=== PATIENT | male | born 1935 | race Caucasian/White ===

== ENCOUNTER → 2018-04-26 09:01 | Outpatient (CLI) | payer OTHER, SELFPAY ==
[2018-04-26 11:19] LABS: Phenytoin / Dilantin 12.4 ug/mL (10-20)
== END ==
PROVIDERS: PCP Family Medicine; Visit Provider Family Medicine
DX: R56.9 Unspecified convulsions (principal)
CPT/HCPCS: 36415; 80185

== ENCOUNTER → 2018-08-03 11:24 | Outpatient (CLI) | payer OTHER, SELFPAY ==
[2018-08-03 12:06] LABS: Add Manual Diff / Slide Review NO; Basophils Percent Auto 0.9 % (0-2); Eosinophils Percent Auto 6.4 % (2-4); Hematocrit 36.5 % (41-53); Lymphocytes Percent Auto 18.4 % (25-40); Mean Corpuscular HGB Conc 32.8 % (30-36); Mean Corpuscular Hemoglobin 30.6 PG (26-34); Mean Corpuscular Volume 93.3 fL (80-100); Monocytes Percent Auto 16.8 % (3-14); Neutrophils Absolute Auto 2300 /uL (1500-7000); Neutrophils Percent Auto 57.5 % (50-75); Platelet Count 224 X10^3/uL (150-400); Red Blood Cell Count 3.92 X10^6/uL (4.5-5.9); Red Cell Distribution Width 13.3 % (11.6-14.8); White Blood Cell Count 3.9 X10^3/uL (4.5-11.0)
[2018-08-03 12:24] LABS: Alanine Aminotransferase 19 IU/L (21-72); Albumin Globulin Ratio 1.1 (1.0-2.8); Alkaline Phosphatase 219 U/L (38-126); Aspartate Aminotransferase 24 IU/L (17-59); BUN Creatinine Ratio 19.2 (6-22); Bilirubin Total 0.2 mg/dL (0.2-1.3); Blood Urea Nitrogen 23 mg/dL (9-20); Calcium 8.6 mg/dL (8.4-10.2); Carbon Dioxide 26 mmol/L (22-32); Chloride 104 mmol/L (98-107); Cholesterol 140 mg/dL (140-199); Estimated Glomerular Filt Rate 58.3 mL/min (>60); Globulin 3.8 g/dL (1.7-4.1); Glucose 119 mg/dL (80-110); HDL Cholesterol 42 mg/dL (40-60); HEMOLYSIS < 15 (0-50); LDL Cholesterol Calculated 77 mg/dL (<100); Potassium 4.3 mmol/L (3.4-5.1); Sodium 140 mmol/L (137-145); Total Protein 7.8 g/dL (6.3-8.2); Triglycerides 106 mg/dL (35-150)
[2018-08-03 12:36] LABS: Vitamin D 25 Hydroxy (D3) 20.3 ng/mL (30.0-100.0)
[2018-08-03 12:51] LABS: Thyroid Stimulating Hormone 3.98 uIU/mL (0.47-4.68)
[2018-08-03 12:52] LABS: Prostate Specific Antigen Scrn 1.51 ng/mL (0.1-4.0)
== END ==
PROVIDERS: PCP Family Medicine; Visit Provider Family Medicine
DX: R60.9 Edema, unspecified (principal); E03.9 Hypothyroidism, unspecified; E87.5 Hyperkalemia; I25.10 Atherosclerotic heart disease of native coronary artery without angina pectoris; M85.80 Other specified disorders of bone density and structure, unspecified site; N28.9 Disorder of kidney and ureter, unspecified; R56.9 Unspecified convulsions; Z12.5 Encounter for screening for malignant neoplasm of prostate
CPT/HCPCS: 36415; 80053; 80061; 80185; 82306; 83036; 84443; 85025; G0103

== ENCOUNTER → 2018-11-14 10:10 | Outpatient (CLI) | payer OTHER, SELFPAY ==
[2018-11-14 12:41] LABS: Vitamin D 25 Hydroxy (D3) 56.6 ng/mL (30.0-100.0)
== END ==
PROVIDERS: PCP Family Medicine; Visit Provider Family Medicine
DX: E55.9 Vitamin D deficiency, unspecified (principal)
CPT/HCPCS: 36415; 82306

== ENCOUNTER → 2018-11-16 14:00 | Outpatient (CLI) | payer OTHER, SELFPAY ==
--- NOTE | 2018-11-16 14:02 | DI.RAD.S_ITS ---
PROCEDURE: XR TOE LT MIN 2V INDICATIONS: Left toe pain TECHNIQUE: 2 views of the 4th toe(s) acquired. COMPARISON: [facility], CT, HEAD WITHOUT CONTRAST, 11/10/2014, 2:18. FINDINGS: Bones: No fractures or dislocations. There is a somewhat mottled appearance of the marrow involving the 5th metatarsal and at the adjacent proximal phalanx of the 5th toe. Additional areas of similar mottled appearance of the bone may be present. No discrete bony lesion is evident. Soft tissues: No suspicious soft tissue densities. IMPRESSION: 1. No displaced fractures of the left 4th toe. 2. Mottled/heterogeneous marrow appearance of the 5th metatarsal and the adjacent phalanges of the 5th toe. This appearance may represent focal osteopenia, an underlying bone lesion is unable to be excluded. MRI would be helpful for further evaluation with contrast. Dictated by: Rashid Lord M.D. on 11/16/2018 at 13:40 Approved by: Rashid Lord M.D. on 11/16/2018 at 13:42
== END ==
PROVIDERS: PCP Family Medicine; Visit Provider Registered Nurse
DX: M79.675 Pain in left toe(s) (principal)
CPT/HCPCS: 73660

== ENCOUNTER → 2018-12-20 11:20 | Outpatient (CLI) | payer OTHER, SELFPAY ==
[2018-12-20 12:04] LABS: Add Manual Diff / Slide Review NO; Basophils Absolute Auto 0 /uL (0-100); Basophils Percent Auto 0.7 % (0-2); Eosinophils Absolute Auto 200 /uL (0-450); Hematocrit 36.6 % (41-53); Hemoglobin 12.3 g/dL (13.5-17.5); Lymphocytes Absolute Auto 900 /uL (1100-4500); Lymphocytes Percent Auto 17.4 % (25-40); Mean Corpuscular HGB Conc 33.7 % (30-36); Mean Corpuscular Hemoglobin 31.1 PG (26-34); Mean Corpuscular Volume 92.5 fL (80-100); Monocytes Absolute Auto 700 /uL (0-900); Neutrophils Absolute Auto 3300 /uL (1500-7000); Neutrophils Percent Auto 64.9 % (50-75); Platelet Count 242 X10^3/uL (150-400); Red Blood Cell Count 3.96 X10^6/uL (4.5-5.9); Red Cell Distribution Width 14.3 % (11.6-14.8); White Blood Cell Count 5.1 X10^3/uL (4.5-11.0)
[2018-12-20 12:16] LABS: Alanine Aminotransferase 11 IU/L (21-72); Albumin 4.1 g/dL (3.5-5.0); Albumin Globulin Ratio 1.1 (1.0-2.8); Alkaline Phosphatase 232 U/L (38-126); Aspartate Aminotransferase 25 IU/L (17-59); BUN Creatinine Ratio 19.2 (6-22); Bilirubin Total 0.4 mg/dL (0.2-1.3); Blood Urea Nitrogen 23 mg/dL (9-20); Calcium 9.2 mg/dL (8.4-10.2); Carbon Dioxide 31 mmol/L (22-32); Chloride 100 mmol/L (98-107); Estimated Glomerular Filt Rate 58.1 mL/min (>60); Globulin 3.8 g/dL (1.7-4.1); Glucose 145 mg/dL (80-110); HEMOLYSIS < 15 (0-50); Phenytoin / Dilantin 23.7 ug/mL (10-20); Potassium 4.9 mmol/L (3.4-5.1); Sodium 139 mmol/L (137-145); Total Protein 7.9 g/dL (6.3-8.2)
[2018-12-20 12:25] LABS: B Type Natriuretic Peptide 179 (<100)
[2018-12-20 12:40] LABS: Thyroid Stimulating Hormone 4.32 uIU/mL (0.47-4.68)
== END ==
PROVIDERS: PCP Family Medicine; Visit Provider Family Medicine
DX: R60.9 Edema, unspecified (principal)
CPT/HCPCS: 36415; 80053; 80185; 83735; 83880; 84443; 85025

== ENCOUNTER → 2019-01-03 14:45 | Outpatient (CLI) | payer OTHER, SELFPAY ==
--- NOTE | 2019-01-03 14:46 | DI.ECHO.S_ITS ---
[facility]---------+ [facility] +---------+ : : [address] : : : [place], [place] : : : : [id number] : : : : Phone: [phone]+ Echocardiogram Report + + :Name: DARREN BERNAL Study Date: 01/03/2019 Height: 69 in : :[facility] Exam Location: [facility] Weight: 178 lb : : Gender: Male BSA: 2.0 m2 : :: 1935 Age: 83 yrs BP: 104/52 mmHg: :Reason For Study: EDEMA : : Performed By: Connor Chang : :Referring: JHON WHITEHEAD : + + Interpretation Summary Left ventricular systolic function is mild to moderately reduced with the ejection fraction visually estimated to be 45-50% with borderline global hypokinesis and akinesis of the mid to distal septum, the distal anterior wall, and the apex that appears unchanged from previous. There has been no significant change since the previous study. Diastolic parameters suggest a pseudonormalization pattern, consistent with probable elevated filling pressures, likely higher compared to the previous study. The right ventricle is mildly dilated and right ventricular systolic function is borderline reduced but appears unchanged compared to the previous study. The right ventricular systolic pressure is estimated to be at least 33 mmHg based on an estimated right atrial pressure of 3 mm Hg, and may be slightly lower compared to the previous study. Both atria are normal in size and are grossly unchanged compared to the previous study. 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 There is no significant valvular heart disease. 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 Procedure: A two-dimensional transthoracic echocardiogram with color flow and Doppler was performed. The study quality was technically adequate. Comparison is made with the echocardiogram of 04/18/17. The patient was in normal sinus rhythm during the exam. Left Ventricle: The left ventricle is normal in size. There is normal left ventricular wall thickness. Left ventricular systolic function is mild to moderately reduced. The ejection fraction is estimated to be 45-50%. There is borderline global hypokinesis of the left ventricle. There is akinesis of the mid to distal septum, the distal anterior wall, and the apex that appears unchanged from previous. There has been no significant change since the previous study. Diastolic parameters suggest a pseudonormalization pattern, consistent with probable elevated filling pressures. This is likely higher compared to the previous study. Right Ventricle: The right ventricle is mildly dilated. Right ventricular systolic function is borderline reduced. This is unchanged compared to the previous study. Atria: Both atria are normal in size. This is unchanged compared to the previous study. The interatrial septum is intact with no evidence for an atrial septal defect. Mitral Valve: The mitral valve leaflets appear mildly thickened, but open well. 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 There is trace mitral regurgitation. This is unchanged compared to the previous study. Aortic Valve: The aortic valve is trileaflet. The aortic valve opens well. There is trace aortic regurgitation. Tricuspid Valve: The tricuspid valve is normal in structure and function. There is trace tricuspid regurgitation. The right ventricular systolic pressure is estimated to be at least 33 mmHg based on an estimated right atrial pressure of 3 mm Hg. This is likely slightly lower compared to the previous study. Pulmonic Valve: The pulmonic valve is normal in structure and function. There is trace pulmonic regurgitation. There is no significant valvular heart disease. Great Vessels: The aortic root is normal size. The ascending aorta is mildly enlarged. This is unchanged compared to the previous study. The pulmonary artery is normal size. The IVC is of normal diameter and collapses greater than 50% with a sniff. This suggests a low right atrial pressure of 3 mm Hg. Pericardium/ Pleura There is no pericardial effusion. There is no pleural effusion. MMode/2D Measurements & Calculations LVIDd: 5.0 cm LVOT diam: 2.3 cm LVIDs: 3.5 cm Ao root diam: 3.0 cm FS: 30.1 % Aortic Jxn: 2.4 cm EPSS: 0.88 cm asc Aorta Diam: 3.5 cm IVSd: 0.82 cm Ao Arch Diam (Prox Trans): 2.5 cm LVPWd: 0.94 cm LV montiel. diameter/BSA (cm/m^2): 2.6 LV sys. diameter/BSA (cm/m^2): 1.8 LA dimension: 3.6 cm RA long axis: 4.7 cm LA A2 area: 20.3 cm2 RA area: 16.0 cm2 LA A4 area: 19.8 cm2 RA vol: 46.1 ml LA length (vol): 5.0 cm RA : 23.5 ml/m2 LA vol: 67.9 ml IVC diam: 2.1 cm LA vol index: 34.5 ml/m2 RVD1 (basal): 4.7 cm RVD2 (mid): 4.2 cm Doppler Measurements & Calculations Ao V2 max: 125.7 cm/sec LVOT Max Neno: 72.5 cm/sec Ao V2 mean: 93.8 cm/sec LV V1 max P.1 mmHg Ao max P.3 mmHg LV V1 VTI: 17.4 cm Ao mean P.8 mmHg BHARATHI(I,D): 2.3 cm2 Ao V2 VTI: 30.2 cm BHARATHI(V,D): 2.3 cm2 sev ratio: 0.58 BHARATHI indexed to BSA (cm^2/m^2): 1.2 MV E max neno: 129.7 cm/sec TR max neno: 274.0 cm/sec MV A max neno: 105.9 cm/sec TR max P.0 mmHg MV E/A: 1.2 PA V2 max: 72.5 cm/sec Med Peak E' Neno: 2.7 cm/sec PA V2 mean: 53.9 cm/sec E/E' med: 48.3 PA mean P.3 mmHg Lat Peak E' Neno: 4.0 cm/sec PA pr(Accel): 51.6 mmHg E/E' lat: 32.2 PA Accel Time: 0.06 sec E/e' average: 40.3 MV dec time: 0.32 sec MVA(VTI): 1.8 cm2 MV V2 mean: 70.0 cm/sec SV(LVOT): 70.0 ml MV mean P.3 mmHg MV V2 VTI: 38.8 cm Reading Physician:LEXA
== END ==
PROVIDERS: PCP Family Medicine; Visit Provider Family Medicine
DX: R60.9 Edema, unspecified (principal); I77.89 Other specified disorders of arteries and arterioles
CPT/HCPCS: 93306

== ENCOUNTER → 2019-02-20 14:32 | Outpatient (CLI) | payer OTHER, SELFPAY ==
[2019-02-20 15:14] LABS: B Type Natriuretic Peptide 152 (<100)
[2019-02-20 15:34] LABS: BUN Creatinine Ratio 21.8 (6-22); Blood Urea Nitrogen 24 mg/dL (9-20); Calcium 8.7 mg/dL (8.4-10.2); Carbon Dioxide 25 mmol/L (22-32); Chloride 105 mmol/L (98-107); Estimated Glomerular Filt Rate > 60.0 mL/min (>60); Glucose 116 mg/dL (80-110); HEMOLYSIS < 15 (0-50); Phenytoin / Dilantin 11.5 ug/mL (10-20); Sodium 138 mmol/L (137-145)
[2019-02-20 16:20] LABS: Vitamin D 25 Hydroxy (D3) 42.2 ng/mL (30.0-100.0)
== END ==
PROVIDERS: PCP Family Medicine; Visit Provider Family Medicine
DX: R60.9 Edema, unspecified (principal); R41.3 Other amnesia
CPT/HCPCS: 36415; 80048; 80185; 82306; 83880

== ENCOUNTER → 2019-07-12 09:24 | Outpatient (CLI) | payer OTHER, SELFPAY ==
[2019-07-12 11:30] LABS: Alanine Aminotransferase 13 IU/L (<50); Albumin 3.5 g/dL (3.5-5.0); Albumin Globulin Ratio 1.1 (1.0-2.8); Alkaline Phosphatase 177 U/L (38-126); Aspartate Aminotransferase 23 IU/L (17-59); BUN Creatinine Ratio 17.9 (6-22); Bilirubin Total 0.3 mg/dL (0.2-1.3); Blood Urea Nitrogen 25 mg/dL (9-20); Calcium 8.8 mg/dL (8.4-10.2); Carbon Dioxide 24 mmol/L (22-32); Chloride 103 mmol/L (98-107); Cholesterol 133 mg/dL (140-199); Estimated Glomerular Filt Rate 48.6 mL/min (>60); Globulin 3.2 g/dL (1.7-4.1); Glucose 103 mg/dL (80-110); HDL Cholesterol 41 mg/dL (40-60); HEMOLYSIS < 15 (0-50); LDL Cholesterol Calculated 72 mg/dL (<100); Magnesium 2.2 mg/dL (1.6-2.3); Potassium 5.3 mmol/L (3.4-5.1); Sodium 138 mmol/L (137-145); Total Protein 6.7 g/dL (6.3-8.2); Triglycerides 99 mg/dL (35-150)
== END ==
PROVIDERS: PCP Family Medicine; Visit Provider Internal Medicine Cardiovascular Disease
DX: E78.5 Hyperlipidemia, unspecified (principal); R60.9 Edema, unspecified
CPT/HCPCS: 36415; 80053; 80061; 83735

== ENCOUNTER → 2019-08-02 08:17 | Outpatient (CLI) | payer MEDICARE, SELFPAY ==
--- NOTE | 2019-08-02 09:27 | PM.TREADMILL ---
Cardiac Stress Test Report Referral & Results Date Patient Seen: 08/02/19 Time Patient Seen: 09:10 Requesting provider: Nadege Pastor Indication: DYSPNEA Rest ECG: SINUS RHYTHM Procedure Note: AFTER INJECTION PATIENT HAD FLUSHING. CHEST PRESSURE UNCHANGED FROM BASELINE 09/02. DYSPNEA UNCHANGED FROM BASELINE. RESTING ECG SINUS RHYTHM. AFTER INJECTION HE DEVELOPED APPROX. 1MM ST DEPRESSION IN V5 AND V6. NO AMINOPHYLLINE NEEDED. MIBI TO FOLLOW. Impression: PHARMACOLOGICAL PORTION OF MYOCARDIAL PERFUSION STUDY IMAGES PENDING Please note: Actual ECG tracings can be found in the PACS system.
--- NOTE | 2019-08-13 12:03 | DI.NM.S_ITS ---
DATE OF SERVICE: PROCEDURE: Pharmacological perfusion study. 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 RADIOPHARMACEUTICAL: 27.0 mCi technetium-99m Myoview IV was injected at stress and 26.2 mCi technetium-99m Myoview IV was injected at rest. FINDINGS: CARDIAC STRESS: The patient underwent pharmacological perfusion study under the supervision of attending staff using standard Lexiscan, as per protocol. The patient remained hemodynamically stable. After Lexiscan injection, the patient experienced flushing without any chest pain, which got resolved by itself. 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 During stress, there were some nonspecific ST changes. At stress, patient developed ventricular triplets and multifocal PVCs without any sustained ventricular tachycardia. There is increased subdiaphragmatic activity. GATED STUDY: The stress LV ejection fraction is 55 percent and resting LV ejection fraction is 53 percent with akinetic apex, mid to distal anterior wall. Resting end-diastolic volume 137 mL. No transient ischemic dilatation. TID ratio is 1.08, which is within normal limits. Lung-heart ratio 0.39, which is within normal limits. MYOCARDIAL PERFUSION: Stress supine, resting supine and stress prone images were compared to each other. 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 No obvious reversible ischemia. Maksim Eason - SUNDEEP/ilir/lc doc#: [id number]/job#: [id number] dd: 08/05/2019 17:49:00 dt: 08/06/2019 04:01:00 DICTATING MD/COPIES TO: Nadege Pastor MD COPIES MNE: MARK;
== END ==
PROVIDERS: PCP Family Medicine; Visit Provider Internal Medicine Cardiovascular Disease
DX: I25.5 Ischemic cardiomyopathy (principal); R06.09 Other forms of dyspnea; I50.22 Chronic systolic (congestive) heart failure
CPT/HCPCS: 78452; 93016; 93017; 93018; A9502; J2785

== ENCOUNTER → 2020-01-27 12:53 | Outpatient (CLI) | payer MEDICARE, SELFPAY ==
[2020-01-27 13:46] LABS: Add Manual Diff / Slide Review NO; Basophils Absolute Auto 0 /uL (0-100); Basophils Percent Auto 0.7 % (0-2); Eosinophils Absolute Auto 200 /uL (0-450); Eosinophils Percent Auto 4.6 % (2-4); Hematocrit 36.9 % (41-53); Hemoglobin 11.8 g/dL (13.5-17.5); Lymphocytes Absolute Auto 800 /uL (1100-4500); Lymphocytes Percent Auto 14.5 % (25-40); Mean Corpuscular HGB Conc 31.9 % (30-36); Mean Corpuscular Hemoglobin 29.3 PG (26-34); Mean Corpuscular Volume 91.8 fL (80-100); Monocytes Absolute Auto 700 /uL (0-900); Monocytes Percent Auto 13.3 % (3-14); Neutrophils Absolute Auto 3600 /uL (1500-7000); Neutrophils Percent Auto 66.9 % (50-75); Platelet Count 188 X10^3/uL (150-400); Red Blood Cell Count 4.02 X10^6/uL (4.5-5.9); Red Cell Distribution Width 14.5 % (11.6-14.8); White Blood Cell Count 5.4 X10^3/uL (4.5-11.0)
[2020-01-27 14:16] LABS: Alanine Aminotransferase 8 IU/L (<50); Albumin 3.9 g/dL (3.5-5.0); Albumin Globulin Ratio 1.1 (1.0-2.8); Alkaline Phosphatase 215 U/L (38-126); Aspartate Aminotransferase 24 IU/L (17-59); BUN Creatinine Ratio 20.2 (6-22); Bilirubin Total 0.3 mg/dL (0.2-1.3); Blood Urea Nitrogen 21 mg/dL (9-20); Calcium 8.7 mg/dL (8.4-10.2); Carbon Dioxide 27 mmol/L (22-32); Chloride 102 mmol/L (98-107); Estimated Glomerular Filt Rate > 60.0 mL/min (>60); Globulin 3.6 g/dL (1.7-4.1); Glucose 105 mg/dL (80-110); HEMOLYSIS < 15 (0-50); Magnesium 2.4 mg/dL (1.6-2.3); Phenytoin / Dilantin 8.4 ug/mL (10-20); Potassium 4.9 mmol/L (3.4-5.1); Sodium 134 mmol/L (137-145); Total Protein 7.5 g/dL (6.3-8.2)
== END ==
PROVIDERS: PCP Family Medicine; Referring Provider Family Medicine; Visit Provider Family Medicine
DX: R56.9 Unspecified convulsions (principal)
CPT/HCPCS: 36415; 80053; 80185; 83735; 84443; 85025

== ENCOUNTER → 2020-02-08 09:57 | Outpatient (CLI) | payer MEDICARE, SELFPAY ==
[2020-02-08 12:06] LABS: Phenytoin / Dilantin 12.2 ug/mL (10-20)
== END ==
PROVIDERS: PCP Family Medicine; Referring Provider Family Medicine; Visit Provider Family Medicine
DX: R56.9 Unspecified convulsions (principal)
CPT/HCPCS: 36415; 80185

== ENCOUNTER 2020-02-15 10:32 | Emergency (ER) | payer MEDICARE, SELFPAY ==
[2020-02-15] VITALS (43 sets, daily range): BP systolic 114–154; BP diastolic 58–100; PULSE 40–90; RESP 13–47; TEMP 36.6; O2SAT 85–100; BMI 25.5
[2020-02-15 10:59] LABS: Add Manual Diff / Slide Review NO; Basophils Absolute Auto 0 /uL (0-100); Basophils Percent Auto 0.7 % (0-2); Eosinophils Absolute Auto 100 /uL (0-450); Eosinophils Percent Auto 2.8 % (2-4); Hematocrit 36.4 % (41-53); Lymphocytes Absolute Auto 700 /uL (1100-4500); Lymphocytes Percent Auto 12.7 % (25-40); Mean Corpuscular HGB Conc 32.9 % (30-36); Mean Corpuscular Volume 91.1 fL (80-100); Monocytes Absolute Auto 700 /uL (0-900); Neutrophils Absolute Auto 3700 /uL (1500-7000); Neutrophils Percent Auto 70.8 % (50-75); Platelet Count 209 X10^3/uL (150-400); White Blood Cell Count 5.2 X10^3/uL (4.5-11.0)
[2020-02-15 11:09] LABS: Creatine Kinase 55 U/L (55-170)
[2020-02-15 11:11] LABS: Alanine Aminotransferase 10 IU/L (<50); Albumin 4.1 g/dL (3.5-5.0); Albumin Globulin Ratio 1.1 (1.0-2.8); Alkaline Phosphatase 237 U/L (38-126); Aspartate Aminotransferase 26 IU/L (17-59); BUN Creatinine Ratio 22.6 (6-22); Bilirubin Total 0.5 mg/dL (0.2-1.3); Blood Urea Nitrogen 28 mg/dL (9-20); Carbon Dioxide 28 mmol/L (22-32); Chloride 98 mmol/L (98-107); Estimated Glomerular Filt Rate 55.8 mL/min (>60); Globulin 3.8 g/dL (1.7-4.1); Glucose 133 mg/dL (80-110); HEMOLYSIS 31 (0-50); Potassium 4.6 mmol/L (3.4-5.1); Sodium 133 mmol/L (137-145); Total Protein 7.9 g/dL (6.3-8.2)
[2020-02-15 11:22] LABS: Troponin I 0.015 ng/mL (0.01-0.034)
[2020-02-15 11:37] LABS: Phenytoin / Dilantin 26.7 ug/mL (10-20)
[2020-02-15 11:44] LABS: NT-proBNP (BNP-Adult 18+) 915 pg/mL (<450)
[2020-02-15 11:46] LABS: Prothrombin Time 11.3 SECONDS (10.1-12.7)
--- NOTE | 2020-02-15 11:48 | DI.RAD.S_ITS ---
PROCEDURE: XR CHEST 1V INDICATIONS: dizziness, bradycardia, TECHNIQUE: One view of the chest was acquired. COMPARISON: [facility], , CHEST 1 VIEW, 04/07/2015, 1:42. FINDINGS: Surgical changes and devices: None. Lungs and pleura: There is moderate multifocal patchy airspace opacity within the mid and lower lungs. No pleural effusions or pneumothorax. Mediastinum: Mediastinal contours appear normal. Heart size is normal. Bones and chest wall: No suspicious bony lesions. Overlying soft tissues appear unremarkable. IMPRESSION: Bilateral pneumonia. Dictated by: Dalila Grove M.D. on 02/15/2020 at 11:18 Approved by: Dalila Grove M.D. on 02/15/2020 at 11:18
--- NOTE | 2020-02-15 12:17 | ED_ITS ---
HPI - Dizziness <KEN Schilling - Last Filed: 02/15/20 20:08> General Chief Complaint: Dizziness Stated Complaint: Pulse rate is going up/down Time Seen by Provider: 02/15/20 11:27 Source: patient and family Mode of arrival: Wheelchair Limitations: no limitations History of Present Illness HPI Narrative: This is a 84-year-old male, former smoker, who has chronic condition as CAD with bypass surgery, heart failure, seizures, hypothyroidism presents to ED with his family with chief complain of dizziness for 2 weeks and bradycardia down to 38-42 bpm. 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 Patient reports he worked [employer] all his life and contributed silicosis to this. Patient decided to check his oxygenation with worsening dizziness and activity intolerance and noticed heart rate in 40s. Patient has been checking his heart rate last 2 days. Patient denies chest pain, breathing difficulty with this. Patient is not sure his baseline heart rate. Patient also reports bilateral ankle swelling for last 2-3 years and he is currently taking furosemide and spironolactone. He also states he has been having increasing mini seizures for last couple of weeks. He describe his mini seizures as lasting for 5-6 seconds with eye flickering and loosing breath. He states he has mini seizures 3-4 times to 10-15 times a day. He has an appointment with neurologist at [facility] in March. Related Data Home Medications Medication Instructions Recorded Confirmed aspirin 81 mg PO QDAY #0 03/31/17 02/15/20 multivitamin 1 tab PO DAILY 12/19/18 02/15/20 ferrous sulfate 134 mg PO DAILY 02/15/20 02/15/20 levothyroxine 75 mcg PO QAM 02/15/20 02/15/20 lovastatin 40 mg PO BEDTIME 02/15/20 02/15/20 phenytoin sodium extended 300 mg PO BID 02/15/20 02/15/20 [Dilantin Extended] Previous Rx's Medication Instructions Recorded furosemide 80 mg tablet 160 mg PO DAILY #180 tab 10/28/19 spironolactone 25 mg tablet 50 mg PO BID #360 tab 01/10/20 Allergies Allergy/AdvReac Type Severity Reaction Status Date / Time Beta-Blockers Allergy Severe can't Verified 02/15/20 11:10 (Beta-Adrenergic Bloc breathe [BETA-BLOCKERS (BETA-ADRENERGIC BLOC] doxycycline [DOXYCYCLINE] Allergy Intermediate CHEST PAIN Verified 02/15/20 11:10 codeine [CODEINE] Allergy Mild VERTIGO, Verified 02/15/20 11:10 GI UPSET Review of Systems <KEN Schilling - Last Filed: 02/15/20 20:08> Review of Systems Narrative: General: Denies fever, chills, fatigue, malaise, sweats. HEENT: Denies sinus pain, ear pain, sore throat, difficulty swallowing, dizziness. Respiratory: Denies dyspnea, cough, wheezing, hemoptysis, sputum. Cardiovascular: See HPI Gastrointestinal: Denies nausea, vomiting, abdominal pain, diarrhea, constipation, melena. : Denies dysuria, frequency, incontinence, hematuria, urinary retention. Musculoskeletal: Denies weakness, joint pain or bony pain. Skin: Denies rash, skin lesions, or other. Neurologic: See HPI Psychiatric: No concerning psychosocial issues. 12-point review of systems is negative except for those stated above. Patient History <KEN Schilling - Last Filed: 02/15/20 20:08> Social History Smoking Status: Former smoker Smoking Status: Former smoker alcohol intake frequency: holidays/special occasions only Substance Use Type: does not use Exam <KEN Schilling - Last Filed: 02/15/20 20:08> Narrative Exam Narrative: GEN: Alert, oriented x 3, thin appearing and in no acute distress. Head: Normal cephalic, atraumatic. No scalp or temporal tenderness, palpable mass or rash. EYES: Pupils are equal, round, and reactive to light and accommodation. There is no subconjunctival hemorrhage, exudate and sclera non-icteric. ENT: Hearing grossly intact. Nose without bleeding, purulent discharge or deviation. Mucous membrane moist, no mucosal lesion. Throat without erythema, tonsillar hypertrophy or exudate. Uvula in midline, airway patent. Neck: Trachea in midline. No JVD, non-tender without lymphadenopathy. No masses or thyroid megaly. Supple, non-tender and no meningeal signs. CARDIAC: Normal regular rate and rhythm without murmurs, gallops, or rubs. No chest wall tenderness. +1 bilateral lower leg edema. No cyanosis or pallor. Capillary refill is less than 2 seconds. RESPIRATORY: Lungs are clear to auscultate bilaterally. No cough, wheezes, rales, or rhonchi. No stridor, respiratory distress, increase work of breathing, or accessary muscle used. ABD: Abdomen soft, nontender and non-distended. No guarding or rebound tenderness to palpate. Bowel sounds are normal in all 4 quadrants. There is no palpable masses or organomegaly. EXT: Full painless ROM of all extremities with no loss of sensation, strength, effusion. SKIN: Warm, dry, slightly pale color for patient. No erythema, lesions or rash over visible areas. BACK: Nontender without deformity or crepitance. No flank tenderness. NEUROLOGICAL: Alert and oriented to place, time and person. Sensation and motor function intact bilaterally. No facial droops, dysphasia. PSYCHIATRIC: Good judgement and reason, without hallucinations, abnormal affect or abnormal behaviors during the examination. Patient is not suicidal. Initial Vital Signs Initial Vital Signs: Vital Signs Temperature 97.9 F 02/15/20 10:42 Pulse Rate 85 02/15/20 10:42 Respiratory Rate 28 H 02/15/20 10:42 Blood Pressure 151/67 H 02/15/20 10:42 Pulse Oximetry 85 L 02/15/20 10:42 <Hari Ron MD - Last Filed: 02/16/20 08:06> Initial Vital Signs Initial Vital Signs: Vital Signs Temperature 97.9 F 02/15/20 10:42 Pulse Rate 85 02/15/20 10:42 Respiratory Rate 28 H 02/15/20 10:42 Blood Pressure 151/67 H 02/15/20 10:42 Pulse Oximetry 85 L 02/15/20 10:42 Scores <KEN Schilling - Last Filed: 02/15/20 20:08> GCS Ludy coma scale eye opening: Spontaneous Towner coma scale verbal response: Orientated Ludy coma scale motor response: Obey commands Ludy coma scale total score: 15 Course <KEN Schilling - Last Filed: 02/15/20 20:08> Orders Ordered: Discontinued Medications Atropine Sulfate (Atropine) 0.5 mg IV NOW ONE Stop: 02/15/20 13:48 Last Admin: 02/15/20 13:53 Dose: 0.5 mg Documented by: JACOB Atropine Sulfate (Atropine) 0.5 mg IV NOW ONE Stop: 02/15/20 15:12 Last Admin: 02/15/20 15:13 Dose: 0.5 mg Documented by: GEOVANNI Dopamine HCl/Dextrose (Dopamine 400 Mg-D5w 250 Ml) 400 mg in 250 mls @ 14.713 mls/hr IV TITRATE MAGDA; Protocol Last Titration: 02/15/20 15:52 Dose: 2 mcg/kg/min, 5.885 mls/hr Documented by: Admin: 02/15/20 15:24 Dose: 5 mcg/kg/min, 14.713 mls/hr Documented by: JACOB Reevaluation(s) Reevaluation #1: the patient had about 6 seconds of pause and reports feel terrible. Patient reported similar symptoms at home and described as mini s eizures which has increased last couple of weeks and patient has been experiencing up to 10-15 times a day Time: 13:02 Reevaluation #2: Patient has symptomatic persistent bradycardia rate in 30's. Administering Atropin 0.5mg IV Time: 13:49 Reevaluation #3: Toleated Atropin 0.5mg well. HR in 70's and improved dizziness Time: 14:05 Consultations Consultation #1: Dr. Kay consulted with the physical findings, EKG, lab results, and x-ray. Recommended observation overnight in the hospital with cardiac monitoring. Transfer to [facility] if patient has pause greater than 3 seconds. Otherwise discharged to home after the observation in hospital with follow-up with Dr. Rodrigues with outpatient Holter monitor Time: 12:40 Consultation #2: Dr. Kay consulted again with new findings of 6 second pause and possible transfer to acute facility. EKG strip has been faxed to [phone] Kay's review. Time: 13:20 Consultation #3: Dr. Kay recommend patient is to transfer acute facility where pacemaker can be in placed. [facility] is full and unable to receive patient at this time. [facility] is closed and unable to transfer patient to this facility. Time: 13:45 Additional Consultation(s): 1435-Consulted Dr. Martinez at [place] optics manufacturing technician he was recommended monitor patient overnight and pacemaker in Monday preferably at [facility] where patient's optics manufacturing technician is located at. Waiting for house supervisors call from [facility]/hospitalist call after it is discussed with [facility] roundhouse firer/fireman. 1609-The patient received 2nd dose of Atropin 0.5 mg and now started on Dopamin drip 2mcg/kg/hr and appears to be tolerating it well. States dizziness improved and HR in 60's. Still waiting to hear back from [place] (computer system is down and unable to give update). 1615-Consulted Dr. Santacruz, hospitalist at [place] for transferring patient with symptomatic bradycardia. Since patient has started dopamine drip, this needs to be managed by Dr. Martniez, optics manufacturing technician, at ICU and roundhouse firer/fireman will confirm with this plan before accepting the patient. Waiting for a phone call back from roundhouse firer/fireman at [facility]. Patient is tolerating well dopamine drips with heart rate in 6 days and normotensive without symptoms. 1655-Dr. Stanley, academic counselor at [place], kindly accepted patient's care for symptomatic bradycardia and pending pacemaker in placement. Vital Signs Vital signs: Vital Signs - 8 hr 02/15/20 12:31 02/15/20 13:00 02/15/20 13:15 Pulse Rate 62 54 L 57 L Respiratory Rate 30 H 32 H 43 H Blood Pressure 118/58 L 131/76 Pulse Oximetry 97 97 100 02/15/20 13:30 02/15/20 13:45 02/15/20 13:47 Pulse Rate 53 L 40 L 67 Respiratory Rate 26 H 34 H 30 H Blood Pressure 140/100 H 121/59 L Pulse Oximetry 95 100 97 02/15/20 13:59 02/15/20 14:00 02/15/20 14:15 Pulse Rate 76 75 66 Respiratory Rate 32 H 25 H 18 Blood Pressure 140/65 Pulse Oximetry 100 100 95 02/15/20 14:30 02/15/20 14:31 02/15/20 14:45 Pulse Rate 65 63 58 L Respiratory Rate 13 23 30 H Blood Pressure 151/67 H 141/65 H Pulse Oximetry 97 99 100 02/15/20 15:00 02/15/20 15:03 02/15/20 15:15 Pulse Rate 42 L 42 L 73 Respiratory Rate 27 H 20 22 Blood Pressure 142/60 H 114/74 Pulse Oximetry 100 100 97 02/15/20 15:16 02/15/20 15:30 02/15/20 16:00 Pulse Rate 68 65 67 Respiratory Rate 17 19 20 Blood Pressure 147/64 H 135/70 Pulse Oximetry 96 99 98 02/15/20 16:15 02/15/20 16:30 02/15/20 16:55 Pulse Rate 65 63 62 Respiratory Rate 15 19 20 Blood Pressure 151/67 H Pulse Oximetry 94 94 98 02/15/20 17:00 02/15/20 17:15 02/15/20 17:30 Pulse Rate 61 63 61 Respiratory Rate 17 19 19 Blood Pressure 148/69 H 136/62 Pulse Oximetry 92 93 95 02/15/20 17:31 02/15/20 17:45 02/15/20 18:00 Pulse Rate 61 69 66 Respiratory Rate 18 32 H 47 H Blood Pressure 148/69 H 134/63 Pulse Oximetry 94 91 99 02/15/20 18:01 02/15/20 18:15 02/15/20 18:30 Pulse Rate 70 63 64 Respiratory Rate 40 H 22 26 H Blood Pressure 154/75 H 142/64 H 148/65 H Pulse Oximetry 100 88 L 100 02/15/20 18:45 02/15/20 19:00 02/15/20 19:15 Pulse Rate 64 65 69 Respiratory Rate 31 H 21 31 H Blood Pressure 144/65 H 148/76 H Pulse Oximetry 100 92 98 02/15/20 19:16 02/15/20 19:30 02/15/20 19:31 Pulse Rate 70 68 75 Respiratory Rate 27 H 30 H 39 H Blood Pressure 142/67 H 138/68 Pulse Oximetry 99 97 99 <Hari Ron MD - Last Filed: 02/16/20 08:06> Orders Ordered: Discontinued Medications Atropine Sulfate (Atropine) 0.5 mg IV NOW ONE Stop: 02/15/20 13:48 Last Admin: 02/15/20 13:53 Dose: 0.5 mg Documented by: JACOB Atropine Sulfate (Atropine) 0.5 mg IV NOW ONE Stop: 02/15/20 15:12 Last Admin: 02/15/20 15:13 Dose: 0.5 mg Documented by: GEOVANNI Dopamine HCl/Dextrose (Dopamine 400 Mg-D5w 250 Ml) 400 mg in 250 mls @ 14.713 mls/hr IV TITRATE MAGDA; Protocol Last Titration: 02/15/20 15:52 Dose: 2 mcg/kg/min, 5.885 mls/hr Documented by: Admin: 02/15/20 15:24 Dose: 5 mcg/kg/min, 14.713 mls/hr Documented by: JACOB Vital Signs Vital signs: Vital Signs - 8 hr 02/15/20 12:31 02/15/20 13:00 02/15/20 13:15 Pulse Rate 62 54 L 57 L Respiratory Rate 30 H 32 H 43 H Blood Pressure 118/58 L 131/76 Pulse Oximetry 97 97 100 02/15/20 13:30 02/15/20 13:45 02/15/20 13:47 Pulse Rate 53 L 40 L 67 Respiratory Rate 26 H 34 H 30 H Blood Pressure 140/100 H 121/59 L Pulse Oximetry 95 100 97 02/15/20 13:59 02/15/20 14:00 02/15/20 14:15 Pulse Rate 76 75 66 Respiratory Rate 32 H 25 H 18 Blood Pressure 140/65 Pulse Oximetry 100 100 95 02/15/20 14:30 02/15/20 14:31 02/15/20 14:45 Pulse Rate 65 63 58 L Respiratory Rate 13 23 30 H Blood Pressure 151/67 H 141/65 H Pulse Oximetry 97 99 100 02/15/20 15:00 02/15/20 15:03 02/15/20 15:15 Pulse Rate 42 L 42 L 73 Respiratory Rate 27 H 20 22 Blood Pressure 142/60 H 114/74 Pulse Oximetry 100 100 97 02/15/20 15:16 02/15/20 15:30 02/15/20 16:00 Pulse Rate 68 65 67 Respiratory Rate 17 19 20 Blood Pressure 147/64 H 135/70 Pulse Oximetry 96 99 98 02/15/20 16:15 02/15/20 16:30 02/15/20 16:55 Pulse Rate 65 63 62 Respiratory Rate 15 19 20 Blood Pressure 151/67 H Pulse Oximetry 94 94 98 02/15/20 17:00 02/15/20 17:15 02/15/20 17:30 Pulse Rate 61 63 61 Respiratory Rate 17 19 19 Blood Pressure 148/69 H 136/62 Pulse Oximetry 92 93 95 02/15/20 17:31 02/15/20 17:45 02/15/20 18:00 Pulse Rate 61 69 66 Respiratory Rate 18 32 H 47 H Blood Pressure 148/69 H 134/63 Pulse Oximetry 94 91 99 02/15/20 18:01 02/15/20 18:15 02/15/20 18:30 Pulse Rate 70 63 64 Respiratory Rate 40 H 22 26 H Blood Pressure 154/75 H 142/64 H 148/65 H Pulse Oximetry 100 88 L 100 02/15/20 18:45 02/15/20 19:00 02/15/20 19:15 Pulse Rate 64 65 69 Respiratory Rate 31 H 21 31 H Blood Pressure 144/65 H 148/76 H Pulse Oximetry 100 92 98 02/15/20 19:16 02/15/20 19:30 02/15/20 19:31 Pulse Rate 70 68 75 Respiratory Rate 27 H 30 H 39 H Blood Pressure 142/67 H 138/68 Pulse Oximetry 99 97 99 MDM - Dizziness <KEN Schilling - Last Filed: 02/15/20 20:08> Differential Diagnosis Differential diagnosis: Likely other (Symptomatic bradycardia, hypothyroidism, electrolytes imbalance, STEMI, heart failure) Medical Records Attestation: I reviewed the patient's medical records. Lab Data Attestation: I reviewed the patient's lab results. Result diagrams: 02/15/20 10:49 02/15/20 10:49 Labs: Lab Results 02/15/20 02/15/20 02/15/20 Range/Units 10:49 10:49 10:49 WBC 5.2 (4.5-11.0) X10^3/uL RBC 4.00 L (4.5-5.9) X10^6/uL Hgb 12.0 L (13.5-17.5) g/dL Hct 36.4 L (41-53) % MCV 91.1 (80-100) fL MCH 30.0 (26-34) PG MCHC 32.9 (30-36) % RDW 14.0 (11.6-14.8) % Plt Count 209 (150-400) X10^3/uL Neut % (Auto) 70.8 (50-75) % Lymph % (Auto) 12.7 L (25-40) % [place] % (Auto) 13.0 (3-14) % Eos % (Auto) 2.8 (2-4) % Baso % (Auto) 0.7 (0-2) % Neut # (Auto) 3700 (7052-6858) /uL Lymph # (Auto) 700 L (1837-0446) /uL [place] # (Auto) 700 (0-900) /uL Eos # (Auto) 100 (0-450) /uL Baso # (Auto) 0 (0-100) /uL PT 11.3 (10.1-12.7) SECONDS INR 1.0 (0.9-1.3) Sodium 133 L (137-145) mmol/L Potassium 4.6 (3.4-5.1) mmol/L Chloride 98 (98-107) mmol/L Carbon Dioxide 28 (22-32) mmol/L BUN 28 H (9-20) mg/dL Creatinine 1.24 (0.66-1.25) mg/dL Estimated GFR 55.8 L (>60) mL/min BUN/Creatinine Ratio 22.6 H (6-22) Glucose 133 H (80-110) mg/dL Calcium 9.0 (8.4-10.2) mg/dL Total Bilirubin 0.5 (0.2-1.3) mg/dL AST 26 (17-59) IU/L ALT 10 (<50) IU/L Alkaline Phosphatase 237 H (38-126) U/L Total Creatine Kinase (55-170) U/L CK-MB (CK-2) CK-MB (CK-2) Rel Index Troponin I 0.015 (0.01-0.034) ng/mL NT-Pro-B Natriuret Pep (<450) pg/mL Total Protein 7.9 (6.3-8.2) g/dL Albumin 4.1 (3.5-5.0) g/dL Globulin 3.8 (1.7-4.1) g/dL Albumin/Globulin Ratio 1.1 (1.0-2.8) Phenytoin (10-20) ug/mL COVID-19 PCR (Negative) 02/15/20 02/15/20 02/15/20 Range/Units 10:49 10:49 13:21 WBC (4.5-11.0) X10^3/uL RBC (4.5-5.9) X10^6/uL Hgb (13.5-17.5) g/dL Hct (41-53) % MCV (80-100) fL MCH (26-34) PG MCHC (30-36) % RDW (11.6-14.8) % Plt Count (150-400) X10^3/uL Neut % (Auto) (50-75) % Lymph % (Auto) (25-40) % [place] % (Auto) (3-14) % Eos % (Auto) (2-4) % Baso % (Auto) (0-2) % Neut # (Auto) (0014-3114) /uL Lymph # (Auto) (4627-6280) /uL [place] # (Auto) (0-900) /uL Eos # (Auto) (0-450) /uL Baso # (Auto) (0-100) /uL PT (10.1-12.7) SECONDS INR (0.9-1.3) Sodium (137-145) mmol/L Potassium (3.4-5.1) mmol/L Chloride (98-107) mmol/L Carbon Dioxide (22-32) mmol/L BUN (9-20) mg/dL Creatinine (0.66-1.25) mg/dL Estimated GFR (>60) mL/min BUN/Creatinine Ratio (6-22) Glucose (80-110) mg/dL Calcium (8.4-10.2) mg/dL Total Bilirubin (0.2-1.3) mg/dL AST (17-59) IU/L ALT (<50) IU/L Alkaline Phosphatase (38-126) U/L Total Creatine Kinase 55 (55-170) U/L CK-MB (CK-2) TNP CK-MB (CK-2) Rel Index TNP Troponin I (0.01-0.034) ng/mL NT-Pro-B Natriuret Pep 915 H (<450) pg/mL Total Protein (6.3-8.2) g/dL Albumin (3.5-5.0) g/dL Globulin (1.7-4.1) g/dL Albumin/Globulin Ratio (1.0-2.8) Phenytoin 26.7 H (10-20) ug/mL COVID-19 PCR Negative (Negative) 02/15/20 Range/Units 14:03 WBC (4.5-11.0) X10^3/uL RBC (4.5-5.9) X10^6/uL Hgb (13.5-17.5) g/dL Hct (41-53) % MCV (80-100) fL MCH (26-34) PG MCHC (30-36) % RDW (11.6-14.8) % Plt Count (150-400) X10^3/uL Neut % (Auto) (50-75) % Lymph % (Auto) (25-40) % [place] % (Auto) (3-14) % Eos % (Auto) (2-4) % Baso % (Auto) (0-2) % Neut # (Auto) (5053-5696) /uL Lymph # (Auto) (1133-6379) /uL [place] # (Auto) (0-900) /uL Eos # (Auto) (0-450) /uL Baso # (Auto) (0-100) /uL PT (10.1-12.7) SECONDS INR (0.9-1.3) Sodium (137-145) mmol/L Potassium (3.4-5.1) mmol/L Chloride (98-107) mmol/L Carbon Dioxide (22-32) mmol/L BUN (9-20) mg/dL Creatinine (0.66-1.25) mg/dL Estimated GFR (>60) mL/min BUN/Creatinine Ratio (6-22) Glucose (80-110) mg/dL Calcium (8.4-10.2) mg/dL Total Bilirubin (0.2-1.3) mg/dL AST (17-59) IU/L ALT (<50) IU/L Alkaline Phosphatase (38-126) U/L Total Creatine Kinase (55-170) U/L CK-MB (CK-2) CK-MB (CK-2) Rel Index Troponin I < 0.012 (0.01-0.034) ng/mL NT-Pro-B Natriuret Pep (<450) pg/mL Total Protein (6.3-8.2) g/dL Albumin (3.5-5.0) g/dL Globulin (1.7-4.1) g/dL Albumin/Globulin Ratio (1.0-2.8) Phenytoin (10-20) ug/mL COVID-19 PCR (Negative) Urine Dip Bedside Urine Glucose Negative Bedside Urine Bilirubin - Negative Bedside Urine Ketone - Negative Urine Specific [place] 1.010 Bedside Urine Occult Blood - Negative Bedside Urine pH 6.0 Bedside Urine Protein - Negative Bedside Urine Urobilinogen - Negative Bedside Urine Nitrite - Negative Bedside Urine Leukocytes - Negative Esterase Imaging Data Chest x-ray: Radiologist's Impression: [address] [address] XRay Report Signed Patient: Maksim Eason AMR#: [id number] : 8Acct:[id number] Age/Sex: 84 / MDate of Service: 02/15/20 Loc: ED Accession Number: [id number] Procedure: XR chest 1V Ordering Provider: Basil Mathews PROCEDURE: XR CHEST 1V INDICATIONS: dizziness, bradycardia, TECHNIQUE: One view of the chest was acquired. COMPARISON: [facility], CHEST 1 VIEW, 04/07/2015, 1:42. FINDINGS: Surgical changes and devices: None. Lungs and pleura: There is moderate multifocal patchy airspace opacity within the mid and lower lungs. No pleural effusions or pneumothorax. Mediastinum: Mediastinal contours appear normal. Heart size is normal. Bones and chest wall: No suspicious bony lesions. Overlying soft tissues appear unremarkable. IMPRESSION: Bilateral pneumonia. Dictated by: Dalila Groev M.D. on 02/15/2020 at 11:18 Approved by: Dalila Grove M.D. on 02/15/2020 at 11:18 ECG Data Attestation: I personally reviewed and interpreted this ECG as follows: Prior ECG tracings: available for review Interpretation: #1 Sinus rhythm rate at 60. Right dominant axis. AZ interval 168, QRS duration 112, QT/QTC 444/444. No acute ST changes. No significant changes from prior ECG tracing #2 at 1505, Junctional rhythm rate at 45. AZ interval -, QRS duration of 86, QT/QTC of 472/408. MDM Narrative Medical decision making narrative: This is a 84-year-old male who presents to ED with increasing dizziness with heart rate fluctuating from in 30-40's with home pulse ox. He had increased dizziness last couple of weeks with increased mini seizures with near syncope for 5-6 seconds up to 10-15 times a day. Patient's Dilantin level has been increased per primary care physician and he is currently waiting for neurology's evaluation at [facility]. Patient denies chest pain, breathing difficulty, nausea or vomiting. Patient is O2 dependent at home with 1-2 L by nasal cannula for silicosis. Patient denies fever, cough, known exposure to Covid, recent travels. EKG upon arrival to ED shows sinus rhythm rate at [address] changes. During assessment, patient's heart rates mostly in 50s increases to this 70's briefly and back down to 50s. Chest x-ray indicates moderate multifocal patchy airspace is opacities within the mid and lower lungs and suggesting bilateral pneumonia. However patient's symptoms and physical exam is not consistent with pneumonia. Patient expressed to primary nurse that his chest xray difficulty reading in the past. It is likely due to patient's chronic conditions silicosis, patient's chest x-ray today appears to be abnormal again without pneumonia. No leukocytosis. Patient is afebrile. Lung sounds are clear to auscultate in all lobes without increased work of breathing. Slight anemia of hemoglobin of 12 and hematocrit of 36.4. Patient has history of mild anemia and appears to be this is his baseline. Slightly elevated BUN of 23. Normal Creatinine level is 1.2 with estimated GFR of 58.3. Sodium is 133. Mildly elevated alkaline phosphatase of 237. Pro BNP is 915 today. Previous (regular) BNP one year ago was 152-179 and mildly elevated. He takes daily spironolactone and furosemide for bilateral ankle swelling. Echocardiogram 1 year ago with EF of 45-50%. 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 Initital Trop was 0.015 (0.01-0.034) and 2nd troponin <0.012 (post 3 hrs). Patient has history of hypothyroidism and last TSH was done on 01/27/20 and it was 3.9 (0.47-4.68) and take daily 75 micro g of levothyroxine daily which he has been compliant. COVID-19 swab was negative today. Dilantain level today is 26.7 (10-20) and it was 12.2 on 02/08/20 before his current medication dose was increased. Initial plan was transfer patient for overnight monitoring for prolonged pause or arrhythmia and outpatient follow-up with Holter monitor. However, shortly after I discussed patient's findings and plan with Dr. Kay, [facility] Custom [employer] manager implementation, patient had 6 seconds of long pause with significant dizziness. Dr. Kay called back and it was recommended to transfer patient for pacemaker procedure. Unfortunately, [facility] is not able to receive patient's due to not having available beds at this time. [facility] is unable to receive transfer as well due to closed OR. After several phone calls to optics manufacturing technician, hospitalist and academic counselor, Dr. Stanley has kindly accepted patient's care to manage symptomatic bradycardia and pacemaker procedure. Patient has been stable with heart rate in 60s without symptoms with 2 doses of atropine which did not last long and patient is cur rently receiving dopamine drip to mics per kg per hour which he has been tolerating it well. Patient agrees with the transfer and treatment plan. All required documents has been completed. Patient is currently waiting for [facility] transfer to [facility]. <Hari Ron MD - Last Filed: 02/16/20 08:06> Lab Data Labs: Lab Results 02/15/20 02/15/20 02/15/20 Range/Units 10:49 10:49 10:49 WBC 5.2 (4.5-11.0) X10^3/uL RBC 4.00 L (4.5-5.9) X10^6/uL Hgb 12.0 L (13.5-17.5) g/dL Hct 36.4 L (41-53) % MCV 91.1 (80-100) fL MCH 30.0 (26-34) PG MCHC 32.9 (30-36) % RDW 14.0 (11.6-14.8) % Plt Count 209 (150-400) X10^3/uL Neut % (Auto) 70.8 (50-75) % Lymph % (Auto) 12.7 L (25-40) % [place] % (Auto) 13.0 (3-14) % Eos % (Auto) 2.8 (2-4) % Baso % (Auto) 0.7 (0-2) % Neut # (Auto) 3700 (1291-3570) /uL Lymph # (Auto) 700 L (2985-4851) /uL [place] # (Auto) 700 (0-900) /uL Eos # (Auto) 100 (0-450) /uL Baso # (Auto) 0 (0-100) /uL PT 11.3 (10.1-12.7) SECONDS INR 1.0 (0.9-1.3) Sodium 133 L (137-145) mmol/L Potassium 4.6 (3.4-5.1) mmol/L Chloride 98 (98-107) mmol/L Carbon Dioxide 28 (22-32) mmol/L BUN 28 H (9-20) mg/dL Creatinine 1.24 (0.66-1.25) mg/dL Estimated GFR 55.8 L (>60) mL/min BUN/Creatinine Ratio 22.6 H (6-22) Glucose 133 H (80-110) mg/dL Calcium 9.0 (8.4-10.2) mg/dL Total Bilirubin 0.5 (0.2-1.3) mg/dL AST 26 (17-59) IU/L ALT 10 (<50) IU/L Alkaline Phosphatase 237 H (38-126) U/L Total Creatine Kinase (55-170) U/L CK-MB (CK-2) CK-MB (CK-2) Rel Index Troponin I 0.015 (0.01-0.034) ng/mL NT-Pro-B Natriuret Pep (<450) pg/mL Total Protein 7.9 (6.3-8.2) g/dL Albumin 4.1 (3.5-5.0) g/dL Globulin 3.8 (1.7-4.1) g/dL Albumin/Globulin Ratio 1.1 (1.0-2.8) Phenytoin (10-20) ug/mL COVID-19 PCR (Negative) 02/15/20 02/15/20 02/15/20 Range/Units 10:49 10:49 13:21 WBC (4.5-11.0) X10^3/uL RBC (4.5-5.9) X10^6/uL Hgb (13.5-17.5) g/dL Hct (41-53) % MCV (80-100) fL MCH (26-34) PG MCHC (30-36) % RDW (11.6-14.8) % Plt Count (150-400) X10^3/uL Neut % (Auto) (50-75) % Lymph % (Auto) (25-40) % [place] % (Auto) (3-14) % Eos % (Auto) (2-4) % Baso % (Auto) (0-2) % Neut # (Auto) (9329-5747) /uL Lymph # (Auto) (7903-4708) /uL [place] # (Auto) (0-900) /uL Eos # (Auto) (0-450) /uL Baso # (Auto) (0-100) /uL PT (10.1-12.7) SECONDS INR (0.9-1.3) Sodium (137-145) mmol/L Potassium (3.4-5.1) mmol/L Chloride (98-107) mmol/L Carbon Dioxide (22-32) mmol/L BUN (9-20) mg/dL Creatinine (0.66-1.25) mg/dL Estimated GFR (>60) mL/min BUN/Creatinine Ratio (6-22) Glucose (80-110) mg/dL Calcium (8.4-10.2) mg/dL Total Bilirubin (0.2-1.3) mg/dL AST (17-59) IU/L ALT (<50) IU/L Alkaline Phosphatase (38-126) U/L Total Creatine Kinase 55 (55-170) U/L CK-MB (CK-2) TNP CK-MB (CK-2) Rel Index TNP Troponin I (0.01-0.034) ng/mL NT-Pro-B Natriuret Pep 915 H (<450) pg/mL Total Protein (6.3-8.2) g/dL Albumin (3.5-5.0) g/dL Globulin (1.7-4.1) g/dL Albumin/Globulin Ratio (1.0-2.8) Phenytoin 26.7 H (10-20) ug/mL COVID-19 PCR Negative (Negative) 02/15/20 Range/Units 14:03 WBC (4.5-11.0) X10^3/uL RBC (4.5-5.9) X10^6/uL Hgb (13.5-17.5) g/dL Hct (41-53) % MCV (80-100) fL MCH (26-34) PG MCHC (30-36) % RDW (11.6-14.8) % Plt Count (150-400) X10^3/uL Neut % (Auto) (50-75) % Lymph % (Auto) (25-40) % [place] % (Auto) (3-14) % Eos % (Auto) (2-4) % Baso % (Auto) (0-2) % Neut # (Auto) (7747-6263) /uL Lymph # (Auto) (5389-9376) /uL [place] # (Auto) (0-900) /uL Eos # (Auto) (0-450) /uL Baso # (Auto) (0-100) /uL PT (10.1-12.7) SECONDS INR (0.9-1.3) Sodium (137-145) mmol/L Potassium (3.4-5.1) mmol/L Chloride (98-107) mmol/L Carbon Dioxide (22-32) mmol/L BUN (9-20) mg/dL Creatinine (0.66-1.25) mg/dL Estimated GFR (>60) mL/min BUN/Creatinine Ratio (6-22) Glucose (80-110) mg/dL Calcium (8.4-10.2) mg/dL Total Bilirubin (0.2-1.3) mg/dL AST (17-59) IU/L ALT (<50) IU/L Alkaline Phosphatase (38-126) U/L Total Creatine Kinase (55-170) U/L CK-MB (CK-2) CK-MB (CK-2) Rel Index Troponin I < 0.012 (0.01-0.034) ng/mL NT-Pro-B Natriuret Pep (<450) pg/mL Total Protein (6.3-8.2) g/dL Albumin (3.5-5.0) g/dL Globulin (1.7-4.1) g/dL Albumin/Globulin Ratio (1.0-2.8) Phenytoin (10-20) ug/mL COVID-19 PCR (Negative) Urine Dip Bedside Urine Glucose Negative Bedside Urine Bilirubin - Negative Bedside Urine Ketone - Negative Urine Specific [place] 1.010 Bedside Urine Occult Blood - Negative Bedside Urine pH 6.0 Bedside Urine Protein - Negative Bedside Urine Urobilinogen - Negative Bedside Urine Nitrite - Negative Bedside Urine Leukocytes - Negative Esterase Discharge Plan Departure Patient Disposition: [facility] Clinical Impression: Symptomatic bradycardia, Subtherapeutic serum dilantin level, Elevated brain natriuretic peptide (BNP) level Discharge Date/Time: 02/15/20 19:46 Prescriptions: No Action aspirin 81 MG tablet,delayed release (DR/EC) 81 mg PO QDAY Qty: 0 RF: 0 furosemide 80 mg tablet 160 mg PO DAILY Qty: 180 RF: 3 spironolactone 25 mg tablet 50 mg PO BID Qty: 360 RF: 3 multivitamin tablet 1 tab PO DAILY RF: 0 lovastatin 40 mg tablet 40 mg PO BEDTIME RF: 0 phenytoin sodium extended [Dilantin Extended] 100 mg capsule 300 mg PO BID RF: 0 levothyroxine 75 mcg tablet 75 mcg PO QAM RF: 0 ferrous sulfate 134 mg (27 mg iron) Tablet 134 mg PO DAILY RF: 0 Referrals: Facundo Guzman MD [Primary Care Provider] -
--- NOTE | 2020-02-15 13:08 | PC.NURSE ---
1300: Pt monitor alarming asystole. HR noted to have 6 second pause and resume to be irregular and bradycardic in 40's. RN x 2 into room. pt awake and alert. states i think i just had a seizure--i feel like i blacked out for a few seconds Advised pt he possibly did not have a seizure since his heart appears to have stopped for multiple seconds. Code cart at bedside and pads applied. Conversation regarding code status and pt reports he would want CPR and intubation if needed. DAPHNE Gracia made aware. Obtaining 2nd IV access and COVID test for transfer.
[2020-02-15] MEDS: ATROPINE 1 MG/10 ML SYRINGE 0.5 MG IV ×2 (13:53→15:13)
--- NOTE | 2020-02-15 13:55 | PC.NURSE ---
1400: 0.5mg atropine given IV. Pt states he is feeling better. Alert/oriented and talkative. HR 74 Bp 121/59 (78).
[2020-02-15 14:21] LABS: COVID19 -Nasal RAPID Negative (Negative)
[2020-02-15 14:31] LABS: Troponin I < 0.012 ng/mL (0.01-0.034)
[2020-02-15] MEDS: DOPAMINE HCL IN DEXTROSE 5 % 400 MG/250 ML PLAST..BAG 14.713 MG IV (15:24)
--- NOTE | 2020-02-15 15:42 | PC.NURSE ---
1530: Pt started on 5mcg/kg/min of dopamine. remains on cardiac monitoring. will titrate according to protocol. AAOx3. NAD.
--- NOTE | 2020-02-15 15:54 | PC.NURSE ---
After discussing Dopamine admin with pharmacy, dopamine decreased to 2mcg/kg/min. Will titrate to keep HR in 60-70s.
== END 2020-02-15 19:46 | disposition short-term general hospital (02) ==
PROVIDERS: Emergency Medicine; Emergency Provider Nurse Practitioner Family; PCP Family Medicine
DX: R00.1 Bradycardia, unspecified (principal); R79.89 Other specified abnormal findings of blood chemistry; R42 Dizziness and giddiness; I25.810 Atherosclerosis of coronary artery bypass graft(s) without angina pectoris; E03.9 Hypothyroidism, unspecified; Z11.59 Encounter for screening for other viral diseases
CPT/HCPCS: 36415; 71045; 80053; 80185; 81003; 82550; 83880; 84484; 85025; 85610; 87635; 93005; 96365; 96375; 96376; 99285; J0461

== ENCOUNTER → 2020-05-28 09:52 | Outpatient (CLI) | payer MEDICARE, SELFPAY ==
[2020-05-28 11:29] LABS: Hemoglobin A1C% w Est Avg Glu 6.1 % (4.0-6.0)
[2020-05-28 11:42] LABS: BUN Creatinine Ratio 17.2 (6-22); Blood Urea Nitrogen 25 mg/dL (9-20); Calcium 8.5 mg/dL (8.4-10.2); Carbon Dioxide 25 mmol/L (22-32); Chloride 107 mmol/L (98-107); Cholesterol 124 mg/dL (140-199); Estimated Glomerular Filt Rate 46.6 mL/min (>60); Glucose 119 mg/dL (80-110); HDL Cholesterol 43 mg/dL (40-60); HEMOLYSIS < 15 (0-50); LDL Cholesterol Calculated 54 mg/dL (<100); Magnesium 2.4 mg/dL (1.6-2.3); Sodium 138 mmol/L (137-145); Triglycerides 136 mg/dL (35-150)
[2020-05-28 11:46] LABS: Potassium 5.8 mmol/L (3.4-5.1)
== END ==
PROVIDERS: PCP Family Medicine; Referring Provider Family Medicine; Visit Provider Family Medicine
DX: R60.9 Edema, unspecified (principal); E78.2 Mixed hyperlipidemia; N28.9 Disorder of kidney and ureter, unspecified; Z86.69 Personal history of other diseases of the nervous system and sense organs; Z95.810 Presence of automatic (implantable) cardiac defibrillator
CPT/HCPCS: 36415; 80048; 80061; 80185; 82565; 83036; 83735; 84520

== ENCOUNTER → 2020-06-25 14:30 | Outpatient (CLI) | payer MEDICARE, SELFPAY ==
[2020-06-25 15:01] LABS: COVID19 -Nasal RAPID Negative (Negative)
== END ==
PROVIDERS: PCP Family Medicine; Visit Provider Family Medicine
DX: R05 Cough (principal)
CPT/HCPCS: 87635

== ENCOUNTER → 2020-06-25 15:14 | Outpatient (CLI) | payer MEDICARE, SELFPAY ==
[2020-06-25 15:57] LABS: Add Manual Diff / Slide Review NO; Alanine Aminotransferase 13 IU/L (<50); Albumin 3.9 g/dL (3.5-5.0); Alkaline Phosphatase 196 U/L (38-126); Aspartate Aminotransferase 24 IU/L (17-59); BUN Creatinine Ratio 17.1 (6-22); Basophils Absolute Auto 0 /uL (0-100); Bilirubin Total 0.5 mg/dL (0.2-1.3); Blood Urea Nitrogen 18 mg/dL (9-20); Calcium 8.9 mg/dL (8.4-10.2); Carbon Dioxide 30 mmol/L (22-32); Chloride 104 mmol/L (98-107); Eosinophils Absolute Auto 200 /uL (0-450); Eosinophils Percent Auto 3.6 % (2-4); Estimated Glomerular Filt Rate > 60.0 mL/min (>60); Glucose 111 mg/dL (80-110); HEMOLYSIS < 15 (0-50); Hematocrit 33.7 % (41-53); Hemoglobin 10.9 g/dL (13.5-17.5); Lymphocytes Absolute Auto 600 /uL (1100-4500); Lymphocytes Percent Auto 13.2 % (25-40); Mean Corpuscular HGB Conc 32.4 % (30-36); Mean Corpuscular Hemoglobin 30.5 PG (26-34); Mean Corpuscular Volume 94.1 fL (80-100); Monocytes Absolute Auto 600 /uL (0-900); Monocytes Percent Auto 14.4 % (3-14); Neutrophils Absolute Auto 3000 /uL (1500-7000); Neutrophils Percent Auto 67.8 % (50-75); Platelet Count 244 X10^3/uL (150-400); Potassium 4.9 mmol/L (3.4-5.1); Red Blood Cell Count 3.58 X10^6/uL (4.5-5.9); Red Cell Distribution Width 14.3 % (11.6-14.8); Sodium 136 mmol/L (137-145); Total Protein 7.9 g/dL (6.3-8.2); White Blood Cell Count 4.5 X10^3/uL (4.5-11.0)
== END ==
PROVIDERS: PCP Family Medicine; Referring Provider Family Medicine; Visit Provider Family Medicine
DX: R05 Cough (principal); Z95.810 Presence of automatic (implantable) cardiac defibrillator
CPT/HCPCS: 36415; 80053; 85025; 87635

== ENCOUNTER → 2020-09-03 10:58 | Outpatient (CLI) | payer MEDICARE, SELFPAY ==
[2020-09-03 11:38] LABS: Add Manual Diff / Slide Review NO; Basophils Absolute Auto 0 /uL (0-100); Basophils Percent Auto 1.1 % (0-2); Eosinophils Absolute Auto 200 /uL (0-450); Eosinophils Percent Auto 5.4 % (2-4); Hematocrit 37.2 % (41-53); Hemoglobin 12.1 g/dL (13.5-17.5); Lymphocytes Absolute Auto 800 /uL (1100-4500); Lymphocytes Percent Auto 16.8 % (25-40); Mean Corpuscular HGB Conc 32.5 % (30-36); Mean Corpuscular Hemoglobin 29.5 PG (26-34); Mean Corpuscular Volume 90.8 fL (80-100); Monocytes Absolute Auto 700 /uL (0-900); Monocytes Percent Auto 16.1 % (3-14); Neutrophils Absolute Auto 2700 /uL (1500-7000); Neutrophils Percent Auto 60.6 % (50-75); Platelet Count 179 X10^3/uL (150-400); Red Blood Cell Count 4.09 X10^6/uL (4.5-5.9); Red Cell Distribution Width 13.9 % (11.6-14.8); White Blood Cell Count 4.5 X10^3/uL (4.5-11.0)
[2020-09-03 11:57] LABS: Alanine Aminotransferase 12 IU/L (<50); Albumin 3.9 g/dL (3.5-5.0); Alkaline Phosphatase 215 U/L (38-126); Aspartate Aminotransferase 27 IU/L (17-59); BUN Creatinine Ratio 26.1 (6-22); Bilirubin Total 0.1 mg/dL (0.2-1.3); Blood Urea Nitrogen 37 mg/dL (9-20); Calcium 8.5 mg/dL (8.4-10.2); Carbon Dioxide 29 mmol/L (22-32); Chloride 103 mmol/L (98-107); Estimated Glomerular Filt Rate 47.7 mL/min (>60); Globulin 3.8 g/dL (1.7-4.1); Glucose 129 mg/dL (80-110); HEMOLYSIS < 15 (0-50); Potassium 4.5 mmol/L (3.4-5.1); Sodium 137 mmol/L (137-145); Total Protein 7.7 g/dL (6.3-8.2)
== END ==
PROVIDERS: PCP Family Medicine; Referring Provider Family Medicine; Visit Provider Family Medicine
DX: D50.9 Iron deficiency anemia, unspecified (principal); J44.1 Chronic obstructive pulmonary disease with (acute) exacerbation; R63.4 Abnormal weight loss; J44.9 Chronic obstructive pulmonary disease, unspecified
CPT/HCPCS: 36415; 80053; 85025

== ENCOUNTER → 2020-09-17 11:53 | Outpatient (CLI) | payer MEDICARE, SELFPAY ==
--- NOTE | 2020-09-17 11:54 | DI.CT.S_ITS ---
PROCEDURE: CT CHEST ABD PEL W CON INDICATIONS: wt loss, pneumonia, lung mass TECHNIQUE: After the administration of oral and intravenous contrast, 5 mm thick sections acquired from the lung apices to the symphysis. 5 mm coronal and sagittal reformats were performed, with additional 7 mm coronal MIP reformats through the lungs. For radiation dose reduction, the following was used: automated exposure control, adjustment of mA and/or kV according to patient size. COMPARISON: [facility], CT, ABDOMEN/PELVIS WITH CONTRAST, 01/17/2011, 11:16. [facility], CT, PE STUDY (CTA CHEST), 04/07/2015, 3:00. FINDINGS: Image quality: Excellent. CHEST: Innumerable bilateral pleural and parenchymal pulmonary nodules are seen measuring up to 3.4 x 2.3 cm in the lateral right lung on image 144/3, and up to 2.6 x 2.9 cm in the left lower lobe image 133/3. No pleural effusions or pneumothorax. Airway thickening in keeping with nonspecific bronchitis and/or reactive airways disease. Mediastinum: Heart size is normal. Coronary artery calcifications are present. No pericardial effusion. Mediastinal and bilateral hilar lymphadenopathy also present, for example right paratracheal lymph node measuring 2.6 x 2.3 cm. No interval change. Thoracic aorta and central pulmonary arteries are normal in size. Esophagus is normal in caliber. No hiatal hernia. Subcarinal lymphadenopathy grossly unchanged. Bilateral enlarged axillary lymphadenopathy measuring up to 2.0 x 2.7 cm on the right on image 16/4, and up to 1.7 x 0.9 cm on the left image 15/4. Both of these findings new since the prior study. Thyroid is grossly unremarkable ABDOMEN: Hepatic steatosis. Gallbladder surgically absent . Biliary system is non dilated. Pancreas enhances normally. Spleen is normal in size and enhancement. No adrenal nodules. Kidneys demonstrate normal size and enhancement, without hydronephrosis. Peritoneum and bowel: Bowel loops demonstrate normal wall thickness and caliber. No free fluid or air. Colonic diverticulosis is seen without evidence of acute complication. 1.9 x 1.5 cm dionne hepatis lymph node image 60/4. Shoddy retroperitoneal lymph nodes, which are subcentimeter in size although appear more conspicuous and prominent since the prior study. Mild infrarenal abdominal aortic ectasia measuring 2.9 cm. Miscellaneous: No ventral hernias. PELVIS: Genitourinary: Bladder wall thickness is normal. Miscellaneous: No inguinal hernias or adenopathy. Bones: No suspicious bony lesions. No vertebral body compression fractures. IMPRESSION: Interval development of bilateral axillary and inguinal lymphadenopathy. Retroperitoneal, dionne hepatis lymph nodes are more new or conspicuous since the prior study. These findings are worrisome for metastatic disease/lymphoma among other possibilities. Chronic additional mediastinal and hilar lymphadenopathy appears grossly unchanged. Numerous bilateral pleural and pulmonary parenchymal nodules and presumed areas of rounded atelectasis, mildly increased since remote study dated 04/07/15. Further assessment with PET-CT to exclude underlying neoplasm could be performed as clinically warranted. Dictated by: Konrad Barreto M.D. on 09/17/2020 at 14:46 Approved by: Konrad Barreto M.D. on 09/17/2020 at 15:14
== END ==
PROVIDERS: PCP Family Medicine; Referring Provider Family Medicine; Visit Provider Family Medicine
DX: R91.8 Other nonspecific abnormal finding of lung field (principal); R59.1 Generalized enlarged lymph nodes; J44.1 Chronic obstructive pulmonary disease with (acute) exacerbation; J62.8 Pneumoconiosis due to other dust containing silica; R63.4 Abnormal weight loss; Z95.810 Presence of automatic (implantable) cardiac defibrillator
CPT/HCPCS: 71260; 74177

== ENCOUNTER → 2020-10-19 08:15 | Outpatient (CLI) | payer MEDICARE, SELFPAY ==
--- NOTE | 2020-10-19 | PATH_ITS ---
[facility] Accession Number: [id number] . 01 Material submitted: . lymph node - RIGHT AXILLA LYMPH NODE . 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 . Note: Specimen overall may be suboptimal for evaluation. See microscopic description. [facility] 10/23/2020 1916 Local . 01 Electronically signed: . Glenn Willoughby MD, Pathologist NPI- [id number] . 01 Gross description: . Received in one formalin-filled container, labeled with the patient's name and labeled R axilla, are multiple extremely tiny, light gutierrez-nix, cylindrical-shaped portions of tissue with an average diameter of 0.1 cm and range in length from less than 0.1 cm to 0.4 cm. The specimen is entirely submitted in one cassette. ([id number]) /[facility] 10/21/2020 0236 Local . 01 Microscopic: . Microscopic examination of the biopsy reveals minute fragments of lymphoid tissue. There are focal collections of dense eosinophilic material, [place]-Red positive, most consistent with amyloid deposits. . The overall architecture cannot be assessed as the specimen is scant and fragmented, and no intact follicles are present. CD3 and CD20 immunostains show a mixed population of T- and B-lymphocytes, respectively. Per clinical notes, the patient has lymphadenopathy and bilateral lung masses. Overall, the submitted biopsy of the axillary lymph node may be suboptimal for accurate histopathologic evaluation. . If clinically and radiologically suspicious for malignancy, excision of the lymph node is recommended, as sampling error cannot be excluded in this extremely limited sample. . * This test was developed and its performance characteristics determined by [employer]. It has not been cleared or approved by the U.S. Food and Drug Administration. The FDA has determined that such clearance or approval is not necessary. This test is used for clinical purposes. It should not be regarded as investigational or for research. . 01 Pathologist provided ICD-10: R59.0, J62.8 . 01 CPT . 261570, 577749, U72225, L47429 Performed at: [address] [facility], [place], [place] [id number] MD Mt Holcomb MD Phone: [phone]
--- NOTE | 2020-10-19 08:16 | DI.US.S_ITS ---
PROCEDURE: US BIOPSY LYMPH NODE INDICATIONS: RIGHT AXILLA LYMPHADENOPATHY. HISTORY OF SILICOSIS TECHNIQUE: The indications, alternatives, benefits, risks, and complications of the procedure were explained to the patient. Written informed consent was obtained and placed in the chart. Real-time sonography was utilized to choose the site for percutaneous lymph node sampling. The skin was prepped and draped in the usual sterile fashion. 1% lidocaine was infiltrated down to the site of interest. A coaxial needle was then advanced into the site of interest under direct sonographic visualization. A biopsy apparatus was then utilized, and core biopsies were obtained. The needle was then withdrawn; a bandage was applied to the biopsy site. COMPARISON: None. FINDINGS: Biopsy site(s): Right axillary Needle: Imalogix biopsy needle set. Number of passes: 4 Medications: 1% lidocaine for local anaesthesia. Complications: None. IMPRESSION: Successful ultrasound-guided right axillary lymph node biopsy, with pathology results pending. Dictated by: Konrad Barreto M.D. on 10/19/2020 at 12:39 Approved by: Konrad Barreto M.D. on 10/19/2020 at 12:41
== END ==
PROVIDERS: PCP Family Medicine; Referring Provider Family Medicine; Visit Provider Internal Medicine
DX: R59.0 Localized enlarged lymph nodes (principal)
CPT/HCPCS: 38505; 76942

== ENCOUNTER → 2020-11-11 08:37 | Outpatient (CLI) | payer MEDICARE, SELFPAY ==
[2020-11-11 10:03] LABS: Alanine Aminotransferase 8 IU/L (<50); Albumin Globulin Ratio 1.1 (1.0-2.8); Alkaline Phosphatase 205 U/L (38-126); Aspartate Aminotransferase 24 IU/L (17-59); BUN Creatinine Ratio 24.2 (6-22); Bilirubin Total 0.2 mg/dL (0.2-1.3); Blood Urea Nitrogen 37 mg/dL (9-20); Calcium 8.9 mg/dL (8.4-10.2); Carbon Dioxide 24 mmol/L (22-32); Chloride 105 mmol/L (98-107); Estimated Glomerular Filt Rate 43.7 mL/min (>60); Globulin 3.7 g/dL (1.7-4.1); Glucose 116 mg/dL (80-110); HEMOLYSIS < 15 (0-50); Potassium 5.2 mmol/L (3.4-5.1); Sodium 136 mmol/L (137-145); Total Protein 7.7 g/dL (6.3-8.2)
== END ==
PROVIDERS: Internal Medicine; PCP Family Medicine; Referring Provider Family Medicine; Visit Provider Family Medicine
DX: I25.5 Ischemic cardiomyopathy (principal); R60.9 Edema, unspecified; Z95.810 Presence of automatic (implantable) cardiac defibrillator; R59.1 Generalized enlarged lymph nodes
CPT/HCPCS: 80053; 86335

== ENCOUNTER → 2020-11-16 10:17 | Outpatient (CLI) | payer MEDICARE, SELFPAY ==
[2020-11-16 11:34] LABS: COVID19 -Nasal RAPID Negative (Negative)
== END ==
PROVIDERS: PCP Family Medicine; Visit Provider Surgery
DX: Z20.822 Contact with and (suspected) exposure to COVID-19 (principal)
CPT/HCPCS: 87635; C9803

== ENCOUNTER 2020-11-17 10:59 | Day surgery (SDC) | payer MEDICARE, SELFPAY ==
[2020-11-16 11:41] VITALS: BMI 24.0
[2020-11-17] MEDS: LACTATED RINGERS 1,000 ML 100 ML IV (11:54)
[2020-11-17 12:11] VITALS: BP 104/55; PULSE 78; RESP 20; TEMP 36.6; O2SAT 97; BMI 24.0
[2020-11-17] MEDS: LACTATED RINGERS 1,000 ML 42 ML IV (12:20)
--- NOTE | 2020-11-17 13:48 | PM.PREOP ---
Pre-operative Note Interval Note History & Physical reviewed/Exam performed by Physician: Yes Changes to H&P: No
[2020-11-17] MEDS: CEFAZOLIN 2 GM/100 ML FROZ.PIGGY IV (14:03)
[2020-11-17] MEDS: BUPIVACAINE 0.25% (PF) VIAL 30 ML INJ (14:53)
[2020-11-17 14:54] VITALS: BP 107/60; PULSE 66; RESP 16; TEMP 36.7; O2SAT 99
--- NOTE | 2020-11-17 14:56 | PM.OP.1 ---
Operative Date/Time/Diagnoses Date of procedure: 11/17/20 Time of procedure: 14:56 Pre-op diagnosis: Lymphadenopathy Post-op diagnosis: same Procedure & Clinicians Procedure: Excisional biopsy of right inguinal lymph node Same procedure as scheduled: Yes Indications: Lymphadenopathy of unknown etiology Surgeon: Flash Holloway Anesthesia Type: General Operative Notes Findings: 2 cm lymph node in the right groin Specimen(s): other Prosthetic devices, grafts, tissues, transplants, or devices: Right inguinal lymph node Estimated Blood Loss (mL): 20 Procedure in detail: Patient was brought to the operating room placed supine on the table. Bilateral lower extremity devices were applied. Monitored anesthesia care was induced. He was prepped and draped in sterile fashion. Time-out was performed. Incision over a prominent lymph node within the right groin was made. The subcutaneous tissue was divided with electric cautery. There was a palpable node within the groin which was then grasped and dissected out circumferentially. It was passed off the field as specimen labeled right inguinal lymph node. The wound was irrigated hemostasis was achieved the wound was closed with interrupted Vicryl followed by Monocryl for the skin Dermabond. Patient tolerated procedure well. Complications: none Post-operative Condition: stable Disposition: same day surgery
[2020-11-17 14:57] VITALS: BP 110/61; PULSE 71; RESP 20; O2SAT 97
[2020-11-17 15:12] VITALS: BP 111/59; PULSE 80; RESP 16; TEMP 36.6; O2SAT 93
== END 2020-11-17 15:14 | disposition home or self-care (01) ==
PROVIDERS: PCP Family Medicine; Referring Provider Internal Medicine; Visit Provider Surgery
PROC: (CPT 38500; principal; 2020-11-17 12:15)
DX: R59.1 Generalized enlarged lymph nodes (principal); I25.10 Atherosclerotic heart disease of native coronary artery without angina pectoris; J44.9 Chronic obstructive pulmonary disease, unspecified; E03.9 Hypothyroidism, unspecified; J62.8 Pneumoconiosis due to other dust containing silica; I25.5 Ischemic cardiomyopathy; Z95.1 Presence of aortocoronary bypass graft; Z95.810 Presence of automatic (implantable) cardiac defibrillator; Z87.891 Personal history of nicotine dependence
CPT/HCPCS: 38500; 82962; J0690; J2704; J3010

== ENCOUNTER → 2020-11-30 14:25 | Outpatient (CLI) | payer MEDICARE, SELFPAY ==
[2020-11-30 16:42] LABS: Alanine Aminotransferase 10 IU/L (<50); Albumin 3.9 g/dL (3.5-5.0); Alkaline Phosphatase 197 U/L (38-126); Aspartate Aminotransferase 29 IU/L (17-59); BUN Creatinine Ratio 22.9 (6-22); Bilirubin Total 0.2 mg/dL (0.2-1.3); Blood Urea Nitrogen 32 mg/dL (9-20); Calcium 8.8 mg/dL (8.4-10.2); Carbon Dioxide 27 mmol/L (22-32); Chloride 103 mmol/L (98-107); Estimated Glomerular Filt Rate 48.4 mL/min (>60); Globulin 3.9 g/dL (1.7-4.1); Glucose 109 mg/dL (80-110); HEMOLYSIS < 15 (0-50); Potassium 4.8 mmol/L (3.4-5.1); Sodium 138 mmol/L (137-145); Total Protein 7.8 g/dL (6.3-8.2)
== END ==
PROVIDERS: PCP Family Medicine; Referring Provider Family Medicine; Visit Provider Family Medicine
DX: E87.5 Hyperkalemia (principal); N28.9 Disorder of kidney and ureter, unspecified
CPT/HCPCS: 36415; 80053

== ENCOUNTER → 2020-12-28 14:54 | Outpatient (CLI) | payer MEDICARE, SELFPAY ==
--- NOTE | 2020-12-28 14:54 | DI.ECHO.S_ITS ---
[facility] +---------+ : : [address] : [address] : : : : [address] : : : : Phone: [phone]+ Echocardiogram Report + + :Name: DARREN BERNAL Study Date: 12/28/2020 Height: 68 in : :[facility] ReadingLocation: Weight: 159 lb : : Gender: Male BSA: 1.9 m2 : :: 1935 Age: 85 yrs BP: 132/67 mmHg: :Reason For Study: lymphoma : :Ordering Physician: JOSE, : :LORENZA Performed By: Yash Castañeda : :Referring: LORENZA GARCIA : + + Interpretation Summary Normal left ventricle size with ejection fraction 45 +/- 5%. Apical anterior, apical and mid septum and apex are akinesis. Diastolic parameters suggest a pseudonormalization pattern, consistent with probable elevated filling pressures. 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 Mild mitral regurgitation. Mild tricuspid regurgitation. The right ventricular systolic pressure is estimated to be at least 68 mmHg based on an estimated right atrial pressure of 15 mm Hg. Severe pulmonary hypertension. Comparison is made with the echocardiogram of 01/03/2019, pulmonary pressure has increased. Procedure: A two-dimensional transthoracic echocardiogram with color flow and Doppler was performed. The study quality was technically adequate. Comparison is made with the echocardiogram of 01/03/2019. The patient was in sinus rhythm with heart rates between 62-72 bpm during the exam. Left Ventricle: The left ventricle is normal in size and wall thickness. Left ventricular systolic function is mildly reduced. Left ventricular ejection fraction is estimated to be 45 +/- 5%. There is apical akinesis. There is apical anterior wall akinesis. There is mid anteroseptal wall akinesis. There is apical septal wall akinesis. There are no other obvious focal wall motion abnormalities. Diastolic parameters suggest a pseudonormalization pattern, consistent with probable elevated filling pressures. Right Ventricle: The right ventricle is normal size. Right ventricular systolic function is borderline reduced. Atria: Both atria are normal in size. There is no Doppler evidence for an interatrial shunt. Mitral Valve: The mitral valve leaflets appear mildly thickened, but open well. 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 There is mild mitral regurgitation. Aortic Valve: The aortic valve is normal in structure and function. There is trace aortic regurgitation. Tricuspid Valve: The tricuspid valve is normal in structure and function. There is mild tricuspid regurgitation. There is severe pulmonary hypertension. The right ventricular systolic pressure is estimated to be at least 68 mmHg based on an estimated right atrial pressure of 15 mm Hg. Pulmonic Valve: The pulmonic valve is normal in structure and function. There is mild pulmonic regurgitation. Great Vessels: The aortic root is normal size. The dimensions of the ascending aorta are normal. The IVC is dilated (diameter is greater than 2.1 cm) and it collapses less than 50% with a sniff. This suggests a high right atrial pressure of 15 mm Hg. Pericardium/ Pleura There is no pericardial effusion. There is no pleural effusion. MMode/2D Measurements & Calculations LVIDd: 5.4 cm LVOT diam: 2.1 cm LVIDs: 3.9 cm Ao root diam: 2.9 cm FS: 28.0 % asc Aorta Diam: 3.5 cm IVSd: 1.0 cm LVPWd: 0.79 cm LV montiel. diameter/BSA (cm/m^2): 2.9 LV sys. diameter/BSA (cm/m^2): 2.1 LA A2 area: 17.4 cm2 RA area: 12.5 cm2 LA A4 area: 17.8 cm2 IVC diam: 2.4 cm LA length (vol): 4.6 cm LA vol: 57.3 ml LA vol index: 30.9 ml/m2 RVD1 (basal): 3.6 cm TAPSE: 1.6 cm Doppler Measurements & Calculations Ao V2 max: 121.1 cm/sec LVOT Max Neno: 76.5 cm/sec Ao V2 mean: 84.3 cm/sec LV V1 max P.3 mmHg Ao max P.9 mmHg LV V1 VTI: 19.1 cm Ao mean P.2 mmHg BHARATHI(I,D): 2.4 cm2 Ao V2 VTI: 27.0 cm BHARATHI(V,D): 2.2 cm2 sev ratio: 0.71 BHARATHI indexed to BSA (cm^2/m^2): 1.3 MV E max neno: 147.9 cm/sec TR max neno: 363.6 cm/sec MV A max neno: 120.9 cm/sec TR max P.9 mmHg MV E/A: 1.2 PA V2 max: 103.1 cm/sec Med Peak E' Neno: 2.6 cm/sec PA V2 mean: 70.1 cm/sec E/E' med: 56.2 PA mean P.2 mmHg Lat Peak E' Neno: 4.7 cm/sec PA pr(Accel): 43.7 mmHg E/E' lat: 31.2 E/e' average: 43.7 MV dec time: 0.28 sec SV(LVOT): 65.6 ml Electronically signed by: Nadege Stern on Reading Physician:12/29/2020 03:55 PM
== END ==
PROVIDERS: PCP Family Medicine; Referring Provider Internal Medicine; Visit Provider Internal Medicine
DX: C83.30 Diffuse large B-cell lymphoma, unspecified site (principal); I08.1 Rheumatic disorders of both mitral and tricuspid valves; I27.20 Pulmonary hypertension, unspecified
CPT/HCPCS: 93306

== ENCOUNTER → 2021-03-10 11:04 | Outpatient (CLI) | payer MEDICARE, SELFPAY ==
[2021-03-10 14:21] LABS: COVID19 -Nasal RAPID Negative (Negative)
== END ==
PROVIDERS: PCP Family Medicine; Visit Provider Nurse Practitioner
DX: Z20.822 Contact with and (suspected) exposure to COVID-19 (principal); Z01.812 Encounter for preprocedural laboratory examination
CPT/HCPCS: 87635; C9803

== ENCOUNTER → 2021-03-12 08:52 | Outpatient (CLI) | payer MEDICARE, SELFPAY ==
--- NOTE | 2021-03-12 | DI.ECHO.S_ITS ---
[facility]---------[facility] +---------+ : : [address] : [address] [address] : : : : [address] : : : : Phone: [phone]+ Echocardiogram Report + + :Name: DARREN BERNAL Study Date: 03/12/2021 Height: 69 in : :[facility] ReadingLocation: Weight: 154 lb : : Gender: Male BSA: 1.8 m2 : :: 1935 Age: 85 yrs BP: 110/46 mmHg: :Reason For Study: ISCHEMIC CM : : Performed By: Connor Chang : :Referring: PRASANTH BECERRIL : + + Interpretation Summary The left ventricle is normal in size. The ejection fraction is estimated to be 45-50%. There has been no significant change in LVEF since the previous exam. There is akinesis of apex, distal anterior wall, mid to distal anteroseptum as well as distal inferior septum and distal posterolateral wall without any significant change from the previous study. Diastolic parameters suggest a pseudonormalization pattern, consistent with probable elevated filling pressures. This is unchanged compared to the previous study. The right ventricle is at the upper limits of normal in size. The right ventricular systolic function is normal. There is a pacemaker lead in the right ventricle. 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 There is trace mitral regurgitation. There is mild to moderate tricuspid regurgitation. Compared to the prior echo exam, there has been an increase in TR severity. The right ventricular systolic pressure is estimated to be at least 59 mmHg based on an estimated right atrial pressure of 15 mm Hg. Compared to the prior echo exam, there has been a decrease in the severity of pulmonary hypertension. The ascending aorta is mildly enlarged. 3.8 cm in diameter. Previously 3.5 cm. Procedure: A two-dimensional transthoracic echocardiogram with color flow and Doppler was performed. The study quality was technically adequate. Comparison is made with the echocardiogram of 12/28/20. The patient was in normal sinus rhythm during the exam. Left Ventricle: The left ventricle is normal in size. There is normal left ventricular wall thickness. There is no thrombus. The ejection fraction is estimated to be 45-50%. There has been no significant change since the previous exam. There is akinesis of apex, distal anterior wall, mid to distal anteroseptum as well as distal inferior septum and distal posterolateral wall without any significant change from the previous study. Diastolic parameters suggest a pseudonormalization pattern, consistent with probable elevated filling pressures. This is unchanged compared to the previous study. Right Ventricle: The right ventricle is at the upper limits of normal in size. There is a pacemaker lead in the right ventricle. The right ventricular systolic function is normal. Atria: Both atria are normal in size. Both atria have remained unchanged in size since the prior echo exam. There is no Doppler evidence for an atrial septal defect. Mitral Valve: The mitral valve leaflets are slightly calcified. 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 No significant mitral valve stenosis. There is trace mitral regurgitation. Aortic Valve: The aortic valve is trileaflet. The aortic valve opens well. The aortic valve is slightly calcified. There is no aortic valve stenosis. No aortic regurgitation is present. Tricuspid Valve: The tricuspid valve is normal. There is mild to moderate tricuspid regurgitation. The right ventricular systolic pressure is estimated to be at least 59 mmHg based on an estimated right atrial pressure of 15 mm Hg. Compared to the prior echo exam, there has been an increase in TR severity. Compared to the prior echo exam, there has been a decrease in the severity of pulmonary hypertension. Pulmonic Valve: The pulmonic valve leaflets are thin and pliable; valve motion is normal. There is mild to moderate pulmonic regurgitation. Great Vessels: The aortic root is normal size. There is aortic root sclerosis/calcification. The ascending aorta is mildly enlarged. The pulmonary artery is normal size. The IVC is dilated (diameter is greater than 2.1 cm) and it collapses less than 50% with a sniff. This suggests a high right atrial pressure of 15 mm Hg. Pericardium/ Pleura There is no pericardial effusion. There is no pleural effusion. MMode/2D Measurements & Calculations LVIDd: 4.9 cm LVOT diam: 2.2 cm LVIDs: 3.1 cm Ao root diam: 2.8 cm FS: 35.7 % asc Aorta Diam: 3.8 cm EPSS: 0.89 cm IVSd: 0.76 cm LVPWd: 0.86 cm LV montiel. diameter/BSA (cm/m^2): 2.6 LV sys. diameter/BSA (cm/m^2): 1.7 LA dimension: 3.8 cm RA long axis: 4.6 cm LA A2 area: 20.0 cm2 RA area: 14.8 cm2 LA A4 area: 20.1 cm2 RA vol: 40.7 ml LA length (vol): 5.7 cm RA : 22.0 ml/m2 LA vol: 59.9 ml IVC diam: 2.2 cm LA vol index: 32.4 ml/m2 RVD1 (basal): 4.5 cm RVD2 (mid): 4.5 cm TAPSE: 1.7 cm Doppler Measurements & Calculations Ao V2 max: 139.3 cm/sec LVOT Max Neno: 83.6 cm/sec Ao V2 mean: 104.0 cm/sec LV V1 max P.8 mmHg Ao max P.8 mmHg LV V1 VTI: 20.3 cm Ao mean P.7 mmHg BHARATHI(I,D): 2.3 cm2 Ao V2 VTI: 32.9 cm BHARATHI(V,D): 2.2 cm2 sev ratio: 0.62 BHARATHI indexed to BSA (cm^2/m^2): 1.2 MV E max neno: 159.0 cm/sec TR max neno: 331.7 cm/sec MV A max neno: 113.7 cm/sec TR max P.0 mmHg MV E/A: 1.4 PA V2 max: 74.9 cm/sec Med Peak E' Neno: 3.4 cm/sec PA V2 mean: 57.3 cm/sec E/E' med: 46.4 PA mean P.4 mmHg Lat Peak E' Neno: 6.0 cm/sec E/E' lat: 26.5 E/e' average: 36.4 MV dec time: 0.27 sec MVA(VTI): 1.7 cm2 MV V2 mean: 94.7 cm/sec SV(LVOT): 74.3 ml MV mean P.2 mmHg MV V2 VTI: 44.7 cm Reading Physician:03:38 PM
--- NOTE | 2021-03-12 18:21 | DI.NM.S_ITS ---
DATE OF SERVICE: 03/12/2021 PROCEDURE PERFORMED: Pharmacological perfusion study. INDICATIONS: Known history of ischemic cardiomyopathy, coronary artery bypass surgery, status post mitral valve repair, shortness of breath. Perfusion study is being done for CAD risk stratification. RADIOPHARMACEUTICAL: 25.8 millicurie technetium-99m Myoview IV was injected at stress and 13.3 millicurie technetium-99m Myoview IV was injected at rest. CARDIAC STRESS: The patient underwent pharmacological perfusion study under the supervision of an attending staff using standard intravenous Lexiscan, as per protocol. The patient remained hemodynamically stable. Baseline rhythm was sinus with QS complexes in V1 to V2, as well as in lateral leads. In this EKG, we did not see a bundle branch block or left anterior fascicular block. Possible lead reversal. However, during Lexiscan, there were no new ischemic changes. Occasional PVCs without any complex ventricular arrhythmias. The patient felt flushing and shortness of breath during Lexiscan. RAW DATA: There is increased subdiaphragmatic activity. GATED STUDY: Resting LV ejection fraction 46 percent and stress LV ejection fraction 51 percent with apical akinesis. Resting end-diastolic volume 142 mL. TID ratio 0.92, which is within normal limits. Lung/heart ratio 0.68, which is abnormal. MYOCARDIAL PERFUSION SCAN: Stress supine, resting supine and stress prone images were compared to each other. It appears to be that patient has moderate- size, severely decreased perfusion of mid to distal anterior wall extending into the entire apex, distal inferior wall, distal septum, as well as distal lateral wall. No obvious reversible ischemia. 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 The patient had a perfusion study in July 2019; at that time also had similar perfusion defect. The stress left ventricular ejection fraction was 55 at that time. In this study, the lung/heart ratio has gotten worse. Consider 2D echo to make sure there is no diastolic dysfunction or new valvular pathology. Maksim Eason - Bonifacio/lance doc#: [id number]/job#: [id number] dd: 03/12/2021 16:50:00 dt: 03/12/2021 18:07:00 DICTATING MD/COPIES TO: Nadege Pastor MD COPIES MNE: MARK;
== END ==
PROVIDERS: PCP Family Medicine; Referring Provider Internal Medicine Cardiovascular Disease; Visit Provider Internal Medicine Cardiovascular Disease
DX: I07.1 Rheumatic tricuspid insufficiency (principal); R94.39 Abnormal result of other cardiovascular function study; I25.5 Ischemic cardiomyopathy; R94.31 Abnormal electrocardiogram [ECG] [EKG]; E85.9 Amyloidosis, unspecified; I25.810 Atherosclerosis of coronary artery bypass graft(s) without angina pectoris; I77.89 Other specified disorders of arteries and arterioles
CPT/HCPCS: 78452; 93017; 93306; A9502; J2785

== ENCOUNTER → 2021-09-02 08:43 | Outpatient (CLI) | payer MEDICARE, SELFPAY ==
[2021-09-02 09:13] LABS: Add Manual Diff / Slide Review NO; Basophils Absolute Auto 0 /uL (0-100); Basophils Percent Auto 0.9 % (0-2); Eosinophils Absolute Auto 200 /uL (0-450); Eosinophils Percent Auto 5.7 % (2-4); Hematocrit 31.3 % (41-53); Hemoglobin 10.3 g/dL (13.5-17.5); Lymphocytes Absolute Auto 700 /uL (1100-4500); Lymphocytes Percent Auto 19.5 % (25-40); Mean Corpuscular HGB Conc 32.9 % (30-36); Mean Corpuscular Hemoglobin 29.8 PG (26-34); Mean Corpuscular Volume 90.6 fL (80-100); Monocytes Absolute Auto 600 /uL (0-900); Neutrophils Absolute Auto 2200 /uL (1500-7000); Neutrophils Percent Auto 58.9 % (50-75); Platelet Count 208 X10^3/uL (150-400); Red Blood Cell Count 3.45 X10^6/uL (4.5-5.9); Red Cell Distribution Width 14.7 % (11.6-14.8); White Blood Cell Count 3.7 X10^3/uL (4.5-11.0)
[2021-09-02 09:25] LABS: Alanine Aminotransferase 8 IU/L (<50); Albumin 3.7 g/dL (3.5-5.0); Alkaline Phosphatase 147 U/L (38-126); Aspartate Aminotransferase 20 IU/L (17-59); BUN Creatinine Ratio 18.8 (6-22); Bilirubin Total 0.2 mg/dL (0.2-1.3); Blood Urea Nitrogen 29 mg/dL (9-20); Calcium 8.5 mg/dL (8.4-10.2); Carbon Dioxide 27 mmol/L (22-32); Chloride 104 mmol/L (98-107); Cholesterol 127 mg/dL (140-199); Estimated Glomerular Filt Rate 43.4 mL/min (>60); Globulin 3.6 g/dL (1.7-4.1); Glucose 116 mg/dL (80-110); HDL Cholesterol 59 mg/dL (40-60); HEMOLYSIS < 15 (0-50); LDL Cholesterol Calculated 55 mg/dL (<100); Lactate Dehydrogenase 523 U/L (313-618); Potassium 4.7 mmol/L (3.4-5.1); Sodium 136 mmol/L (137-145); Total Protein 7.3 g/dL (6.3-8.2); Triglycerides 65 mg/dL (35-150)
== END ==
PROVIDERS: Internal Medicine Medical Oncology; PCP Family Medicine; Referring Provider Internal Medicine Cardiovascular Disease; Visit Provider Internal Medicine Cardiovascular Disease
DX: I50.32 Chronic diastolic (congestive) heart failure (principal); C82.90 Follicular lymphoma, unspecified, unspecified site
CPT/HCPCS: 36415; 80053; 80061; 83615; 85025

== ENCOUNTER 2021-12-03 12:57 | Emergency (ER) | payer MEDICARE, SELFPAY ==
[2021-12-03] VITALS (19 sets, daily range): BP systolic 93–124; BP diastolic 50–80; PULSE 59–85; RESP 15–26; TEMP 37.2–37.5; O2SAT 89–98; BMI 22.6
--- NOTE | 2021-12-03 14:47 | PC.NURSE ---
Addendum entered by Becky Garcia R.N. 12/03/21 14:50: Pt reports bilateral weakness and has great difficulty standing and transferring to the bed from the wheelchair (2 RN's assisted). Pt reports he did not fall on his knees. Reports the pain in his knees has gotten progressively worse in the last few days. Reports, I used to be walking normal and fine. Original Note: Pt reports a recent history of infection in his left lower leg. Reports I don't always take all my meds. He reports being unclear if he has taken all of his antibiotics regularly.
--- NOTE | 2021-12-03 15:15 | DI.RAD.S_ITS ---
PROCEDURE: XR KNEE LT 3V INDICATIONS: fall TECHNIQUE: 3 views of the knee were acquired. COMPARISON: None. FINDINGS: Bones: No fractures or dislocations. No suspicious bony lesions. Moderate medial and mild to moderate lateral patellofemoral compartment arthritic narrowing. Chondrocalcinosis is present. Soft tissues: Mild joint effusion. No suspicious soft tissue calcifications. IMPRESSION: No visualized acute fracture or dislocation. However, if clinical concern and/or pain persist, short interval imaging followup in 7-10 days is recommended, as occult injury cannot be definitively excluded. Dictated by: Lissett Ortiz M.D. on 12/03/2021 at 16:08 Approved by: Lissett Ortiz M.D. on 12/03/2021 at 16:08
--- NOTE | 2021-12-03 15:15 | DI.CT.S_ITS ---
PROCEDURE: CT HEAD/BRAIN WO CON INDICATIONS: fall TECHNIQUE: Noncontrast 4.5 mm thick angled axial sections acquired from the foramen magnum to the vertex, with coronal and sagittal reformats. For radiation dose reduction, the following was used: automated exposure control, adjustment of mA and/or kV according to patient size. COMPARISON: [facility], CT, HEAD WITHOUT CONTRAST, 11/07/2014, 15:36. [facility], CT, HEAD WITHOUT CONTRAST, 11/10/2014, 2:18. [facility], CT, HEAD WITHOUT CONTRAST, 03/06/2015, 22:41. [facility], CT, HEAD WITHOUT CONTRAST, 08/28/2017, 18:58. FINDINGS: Image quality: Excellent. CSF spaces: Basal cisterns are patent. No extra-axial fluid collections. The ventricles are symmetric in size and shape. Brain: No intracranial bleeds or masses. There is cerebral volume loss for age, with resultant ventricular and sulcal prominence. There are periventricular and deep white matter chronic small vessel ischemic changes. Remote infarctions are seen, including involving both occipital lobes and the right anterior frontal lobe. There is intracranial internal carotid artery atherosclerosis. Skull and face: Calvarium and visualized facial bones appear intact, without suspicious lesions. Sinuses: Visualized sinuses and mastoids are clear. IMPRESSION: No acute intracranial hemorrhage is seen. No acute intracranial process is seen. 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 Dictated by: Javon Craft M.D. on 12/03/2021 at 14:49 Approved by: Javon Craft M.D. on 12/03/2021 at 14:50
--- NOTE | 2021-12-03 15:15 | DI.CT.S_ITS ---
PROCEDURE: CT CERVICAL SPINE WO CON INDICATIONS: fall TECHNIQUE: Noncontrast 3 mm thick sections acquired from the skull base to the T4 level. Sagittal and coronal reformats were then constructed. For radiation dose reduction, the following was used: automated exposure control, adjustment of mA and/or kV according to patient size. COMPARISON: [facility], CT, CT CHEST ABD PEL W CON, 09/17/2020, 13:14. FINDINGS: Image quality: Excellent. Bones: No fractures or dislocations. Visualized superior ribs are intact. Multilevel degenerative changes are present. Soft tissues: Prevertebral soft tissues are normal in thickness. No paravertebral hematomas. No apical pneumothoraces. Multiple bilateral subcentimeter pulmonary nodules are present within the apices, unchanged compared to prior exam. IMPRESSION: Multilevel degenerative changes without visualized fracture. Multiple bilateral pulmonary nodules, unchanged. Dictated by: Lissett Ortiz M.D. on 12/03/2021 at 16:05 Approved by: Lissett Ortiz M.D. on 12/03/2021 at 16:08
--- NOTE | 2021-12-03 15:15 | DI.RAD.S_ITS ---
PROCEDURE: XR KNEE RT 3V INDICATIONS: NON TRAUMATIC KNEE PAIN TECHNIQUE: 3 views of the knee were acquired. COMPARISON: None. FINDINGS: Bones: No fractures or dislocations. No suspicious bony lesions. [id number] medial and mild lateral patellofemoral compartment narrowing. Periarticular osteophytes are present without erosions. Chondrocalcinosis is noted. Soft tissues: Mild joint effusion. No suspicious soft tissue calcifications. IMPRESSION: Tricompartmental arthritic change. No visualized acute fracture or dislocation. However, if clinical concern and/or pain persist, short interval imaging followup in 7-10 days is recommended, as occult injury cannot be definitively excluded. Dictated by: Lissett Ortiz M.D. on 12/03/2021 at 16:08 Approved by: Lissett Ortiz M.D. on 12/03/2021 at 16:09
--- NOTE | 2021-12-03 15:38 | PC.NURSE ---
Pt reports he is typically on home oxygen at 2L/min. O2 sat was 87% on room air. Placed on 1L of O2 via nasal cannula, and sats improved to 93%.
[2021-12-03 15:52] LABS: Alanine Aminotransferase 13 IU/L (<50); Albumin 3.7 g/dL (3.5-5.0); Albumin Globulin Ratio 0.9 (1.0-2.8); Alkaline Phosphatase 138 U/L (38-126); Aspartate Aminotransferase 24 IU/L (17-59); BUN Creatinine Ratio 21.3 (6-22); Bilirubin Total 0.3 mg/dL (0.2-1.3); Blood Urea Nitrogen 36 mg/dL (9-20); Calcium 8.2 mg/dL (8.4-10.2); Carbon Dioxide 15 mmol/L (22-32); Chloride 107 mmol/L (98-107); Estimated Glomerular Filt Rate 40 mL/min (>60); Globulin 3.9 g/dL (1.7-4.1); Glucose 117 mg/dL (80-110); HEMOLYSIS < 15 (0-50); Magnesium 2.1 mg/dL (1.6-2.3); Sodium 132 mmol/L (137-145); Total Protein 7.6 g/dL (6.3-8.2)
[2021-12-03 15:54] LABS: Add Manual Diff / Slide Review NO; Basophils Absolute Auto 0 /uL (0-100); Basophils Percent Auto 0.5 % (0-2); Eosinophils Absolute Auto 0 /uL (0-450); Eosinophils Percent Auto 0.4 % (2-4); Hematocrit 29.3 % (41-53); Hemoglobin 9.5 g/dL (13.5-17.5); Lymphocytes Absolute Auto 500 /uL (1100-4500); Lymphocytes Percent Auto 8.3 % (25-40); Mean Corpuscular HGB Conc 32.4 % (30-36); Mean Corpuscular Hemoglobin 29.9 PG (26-34); Mean Corpuscular Volume 92.1 fL (80-100); Monocytes Absolute Auto 700 /uL (0-900); Monocytes Percent Auto 12.3 % (3-14); Neutrophils Absolute Auto 4400 /uL (1500-7000); Neutrophils Percent Auto 78.5 % (50-75); Platelet Count 171 X10^3/uL (150-400); Red Blood Cell Count 3.19 X10^6/uL (4.5-5.9); Red Cell Distribution Width 16.5 % (11.6-14.8); White Blood Cell Count 5.6 X10^3/uL (4.5-11.0)
[2021-12-03] MEDS: ACETAMINOPHEN 325 MG TABLET 975 MG PO (15:58)
[2021-12-03 16:06] LABS: Potassium 6.4 mmol/L (3.4-5.1)
--- NOTE | 2021-12-03 16:26 | ED_ITS ---
HPI - Fall <Jaime Armando, DO - Last Filed: 12/04/21 07:01> General Chief Complaint: Fall Stated Complaint: fall, neck and knee pain Time Seen by Provider: 12/03/21 15:13 Source: patient Mode of arrival: Wheelchair History of Present Illness HPI Narrative: Patient is a 86-year-old male who is here for evaluation of injuries that he sustained after falling at home. He states that at baseline he has issues with balance. At home he normally uses a cane to get around. He is also on home oxygen at all times. He states he went to the let family members in the front door and when he turned around he caught his toe on a throw rug that was on the ground. He did fall forward. He hit his head. There was no loss of consciousness. He is not on anticoagulation. He then also landed on both of his knees. He is here for evaluation of right-sided neck discomfort and also knee discomfort. Related Data Home Medications Medication Instructions Recorded Confirmed aspirin 81 mg tablet,delayed 81 mg PO QDAY #0 03/31/17 11/12/21 release multivitamin 1 tab PO DAILY 12/19/18 11/12/21 ferrous sulfate 134 mg (27 mg 134 mg PO DAILY 02/15/20 11/12/21 iron) tablet ascorbic acid (vitamin C) PO 04/01/21 11/12/21 sacubitril 24 mg-valsartan 26 mg 1 tab PO BID 09/15/21 11/12/21 tablet (Entresto) Previous Rx's Medication Instructions Recorded levothyroxine 75 mcg tablet 75 mcg PO QAM #90 tab 08/17/20 acetaminophen 325 mg capsule 650 mg PO QID PRN #60 cap 11/17/20 (Tylenol) spironolactone 25 mg tablet 50 mg PO BID #360 tab 11/30/20 losartan 25 mg tablet See Rx Instructions .ROUTE 03/02/21 .COMPLEX #90 tab bumetanide 2 mg tablet See Rx Instructions .ROUTE 03/09/21 .COMPLEX #360 tab lovastatin 40 mg tablet 40 mg PO BEDTIME #90 tab 08/16/21 phenytoin sodium extended 100 mg See Rx Instructions PO BID #450 09/21/21 capsule (Dilantin Extended) caplet cephalexin 500 mg capsule 500 mg PO QID #40 cap 11/12/21 triamcinolone acetonide 0.1 % 1 applic TOPICAL BID PRN #80 g 11/12/21 topical cream Allergies Allergy/AdvReac Type Severity Reaction Status Date / Time Beta-Blockers Allergy Severe can't Verified 12/03/21 13:14 (Beta-Adrenergic Bloc breathe [BETA-BLOCKERS (BETA-ADRENERGIC BLOC] doxycycline [DOXYCYCLINE] Allergy Intermediate CHEST PAIN Verified 12/03/21 13:14 codeine [CODEINE] AdvReac Mild VERTIGO, Verified 12/03/21 13:14 GI UPSET Review of Systems <Jaime Armando DO - Last Filed: 12/04/21 07:01> Constitutional Constitutional: Denies frequent falls and Denies headache(s) ENT Ears, Nose, Mouth, and Throat: Denies headache(s) Cardiovascular Cardiovascular: Denies chest pain Respiratory Comments: No change in respiratory status Gastrointestinal Comments: No abdominal pain. Musculoskeletal Musculoskeletal: Reports system reviewed and no additional complaints, except as documented and Reports as per HPI Integumentary/Breasts Skin/Breast: Reports system reviewed and no additional complaints, except as documented Neurologic Neurologic: Denies frequent falls and Denies headache(s) Hematologic/Lymphatic On Anticoagulants: No Allergic/Immunologic Allergic/Immunologic: Reports system reviewed and no additional complaints, except as documented Patient History <Jaime Armando DO - Last Filed: 12/04/21 07:01> Medical History Amyloidosis COPD with exacerbation CVA (cerebral vascular accident) Diastolic dysfunction Grand mal seizure History of pacemaker Hx of ulcer disease ILD (interstitial lung disease) Iron deficiency anemia Ischemic cardiomyopathy Lymphoma Myocardial infarction (2004) Pulmonary mass Secondary pulmonary arterial hypertension Silicosis Surgical History AICD (automatic cardioverter/defibrillator) present History of mitral valve repair (2006) Hx of cholecystectomy Hx of heart bypass surgery S/P CABG x 4 (2006) Social History marital status: unknown household members: spouse and none occupational status: previously employed Smoking Status: Former smoker Tobacco: How many years used: 35 alcohol intake: current (1 drink per 3-4 months ) substance use type: does not use Smoking Status: Former smoker alcohol intake frequency: holidays/special occasions only Substance Use Type: does not use Exam <Jaime Armando DO - Last Filed: 12/04/21 07:01> Initial Vital Signs Initial Vital Signs: Vital Signs Temperature 99.5 F 12/03/21 13:14 Pulse Rate 60 12/03/21 13:14 Respiratory Rate 15 12/03/21 13:14 Blood Pressure 112/55 L 12/03/21 13:14 Pulse Oximetry 95 12/03/21 13:14 HENMT Head: normal to inspection and normocephalic Resp Effort & Inspection: normal respiratory effort Auscultation: clear to auscultation bilaterally Cardio Rate: regular rate Rhythm: regular rhythm Back/Spine/Pelvis Cervical Spine: cervical muscular tenderness Skin General: no rashes or lesions noted Neuro General: patient alert, patient awake, patient oriented x3 and moves all extremities Extrem General: capillary refill normal Other: Tenderness to palpation bilateral knees. <Juan Xie DO - Last Filed: 12/03/21 20:10> Initial Vital Signs Initial Vital Signs: Vital Signs Temperature 99.5 F 12/03/21 13:14 Pulse Rate 60 12/03/21 13:14 Respiratory Rate 15 12/03/21 13:14 Blood Pressure 112/55 L 12/03/21 13:14 Pulse Oximetry 95 12/03/21 13:14 Course <Jaime Armando DO - Last Filed: 12/04/21 07:01> Orders Ordered: Discontinued Medications Acetaminophen (Acetaminophen 325 Mg Tablet) 975 mg PO NOW ONE Stop: 12/03/21 15:18 Last Admin: 12/03/21 15:58 Dose: 975 mg Documented by: JUANPABLO Albuterol (Albuterol 2.5 Mg/3 Ml Neb (Adult)) 5 mg INH NOW ONE Stop: 12/03/21 16:27 Last Admin: 12/03/21 17:05 Dose: 2.5 mg Documented by: ROHAN Albuterol (Albuterol 2.5 Mg/3 Ml Neb (Adult)) 2.5 mg INH NOW ONE Stop: 12/03/21 17:10 Last Admin: 12/03/21 17:16 Dose: 2.5 mg Documented by: ROHAN Furosemide (Furosemide 40 Mg/4 Ml Vial) 40 mg IV NOW ONE Stop: 12/03/21 16:27 Last Admin: 12/03/21 16:52 Dose: 40 mg Documented by: JUANPABLO Vital Signs Vital signs: Vital Signs - 8 hr 12/03/21 13:14 12/03/21 14:39 12/03/21 14:42 Temperature 99.5 F 98.9 F Pulse Rate 60 61 60 Respiratory Rate 15 Blood Pressure 112/55 L 108/80 Pulse Oximetry 95 93 94 12/03/21 15:00 12/03/21 15:30 12/03/21 15:31 Temperature Pulse Rate 60 59 L 59 L Respiratory Rate Blood Pressure 93/63 117/66 Pulse Oximetry 89 L 92 93 12/03/21 16:00 12/03/21 16:30 12/03/21 16:55 Temperature Pulse Rate 60 77 74 Respiratory Rate 21 21 Blood Pressure 115/58 L Pulse Oximetry 95 96 95 12/03/21 17:00 12/03/21 17:16 12/03/21 17:30 Temperature Pulse Rate 75 85 81 Respiratory Rate 23 26 H 26 H Blood Pressure 124/59 L Pulse Oximetry 92 93 94 12/03/21 17:31 12/03/21 18:00 Temperature Pulse Rate 82 81 Respiratory Rate 22 16 Blood Pressure 111/65 104/55 L Pulse Oximetry 94 98 <Juan Xie, - Last Filed: 12/03/21 20:10> Orders Ordered: Discontinued Medications Acetaminophen (Acetaminophen 325 Mg Tablet) 975 mg PO NOW ONE Stop: 12/03/21 15:18 Last Admin: 12/03/21 15:58 Dose: 975 mg Documented by: JUANPABLO Albuterol (Albuterol 2.5 Mg/3 Ml Neb (Adult)) 5 mg INH NOW ONE Stop: 12/03/21 16:27 Last Admin: 12/03/21 17:05 Dose: 2.5 mg Documented by: ROHAN Albuterol (Albuterol 2.5 Mg/3 Ml Neb (Adult)) 2.5 mg INH NOW ONE Stop: 12/03/21 17:10 Last Admin: 12/03/21 17:16 Dose: 2.5 mg Documented by: ROHAN Furosemide (Furosemide 40 Mg/4 Ml Vial) 40 mg IV NOW ONE Stop: 12/03/21 16:27 Last Admin: 12/03/21 16:52 Dose: 40 mg Documented by: JUANPABLO Vital Signs Vital signs: Vital Signs - 8 hr 12/03/21 13:14 12/03/21 14:39 12/03/21 14:42 Temperature 99.5 F 98.9 F Pulse Rate 60 61 60 Respiratory Rate 15 Blood Pressure 112/55 L 108/80 Pulse Oximetry 95 93 94 12/03/21 15:00 12/03/21 15:30 12/03/21 15:31 Temperature Pulse Rate 60 59 L 59 L Respiratory Rate Blood Pressure 93/63 117/66 Pulse Oximetry 89 L 92 93 12/03/21 16:00 12/03/21 16:30 12/03/21 16:55 Temperature Pulse Rate 60 77 74 Respiratory Rate 21 21 Blood Pressure 115/58 L Pulse Oximetry 95 96 95 12/03/21 17:00 12/03/21 17:16 12/03/21 17:30 Temperature Pulse Rate 75 85 81 Respiratory Rate 23 26 H 26 H Blood Pressure 124/59 L Pulse Oximetry 92 93 94 12/03/21 17:31 12/03/21 18:00 Temperature Pulse Rate 82 81 Respiratory Rate 22 16 Blood Pressure 111/65 104/55 L Pulse Oximetry 94 98 MDM - Fall <Jaime Armando DO - Last Filed: 12/04/21 07:01> Lab Data Attestation: I reviewed the patient's lab results. Result diagrams: 12/03/21 15:30 12/03/21 19:00 Labs: Lab Results 12/03/21 12/03/21 12/03/21 Range/Units 15:30 15:30 16:36 WBC 5.6 (4.5-11.0) X10^3/uL RBC 3.19 L (4.5-5.9) X10^6/uL Hgb 9.5 L (13.5-17.5) g/dL Hct 29.3 L (41-53) % MCV 92.1 (80-100) fL MCH 29.9 (26-34) PG MCHC 32.4 (30-36) % RDW 16.5 H (11.6-14.8) % Plt Count 171 (150-400) X10^3/uL Neut % (Auto) 78.5 H (50-75) % Lymph % (Auto) 8.3 L (25-40) % [place] % (Auto) 12.3 (3-14) % Eos % (Auto) 0.4 L (2-4) % Baso % (Auto) 0.5 (0-2) % Neut # (Auto) 4400 (7951-1332) /uL Lymph # (Auto) 500 L (4078-6106) /uL [place] # (Auto) 700 (0-900) /uL Eos # (Auto) 0 (0-450) /uL Baso # (Auto) 0 (0-100) /uL Sodium 132 L (137-145) mmol/L Potassium 6.4 H* (3.4-5.1) mmol/L Chloride 107 (98-107) mmol/L Carbon Dioxide 15 L (22-32) mmol/L BUN 36 H (9-20) mg/dL Creatinine 1.69 H (0.66-1.25) mg/dL Estimated GFR 40 L (>60) mL/min BUN/Creatinine Ratio 21.3 (6-22) Glucose 117 H (80-110) mg/dL Calcium 8.2 L (8.4-10.2) mg/dL Magnesium 2.1 (1.6-2.3) mg/dL Total Bilirubin 0.3 (0.2-1.3) mg/dL AST 24 (17-59) IU/L ALT 13 (<50) IU/L Alkaline Phosphatase 138 H (38-126) U/L Total Protein 7.6 (6.3-8.2) g/dL Albumin 3.7 (3.5-5.0) g/dL Globulin 3.9 (1.7-4.1) g/dL Albumin/Globulin Ratio 0.9 L (1.0-2.8) SARS-CoV-2 (PCR) Negative (Negative) 12/03/21 Range/Units 19:00 WBC (4.5-11.0) X10^3/uL RBC (4.5-5.9) X10^6/uL Hgb (13.5-17.5) g/dL Hct (41-53) % MCV (80-100) fL MCH (26-34) PG MCHC (30-36) % RDW (11.6-14.8) % Plt Count (150-400) X10^3/uL Neut % (Auto) (50-75) % Lymph % (Auto) (25-40) % [place] % (Auto) (3-14) % Eos % (Auto) (2-4) % Baso % (Auto) (0-2) % Neut # (Auto) (8746-9633) /uL Lymph # (Auto) (3169-1573) /uL [place] # (Auto) (0-900) /uL Eos # (Auto) (0-450) /uL Baso # (Auto) (0-100) /uL Sodium 133 L (137-145) mmol/L Potassium 5.6 H (3.4-5.1) mmol/L Chloride 109 H (98-107) mmol/L Carbon Dioxide 15 L (22-32) mmol/L BUN 37 H (9-20) mg/dL Creatinine 1.69 H (0.66-1.25) mg/dL Estimated GFR 40 L (>60) mL/min BUN/Creatinine Ratio 21.9 (6-22) Glucose 110 (80-110) mg/dL Calcium 8.0 L (8.4-10.2) mg/dL Magnesium (1.6-2.3) mg/dL Total Bilirubin (0.2-1.3) mg/dL AST (17-59) IU/L ALT (<50) IU/L Alkaline Phosphatase (38-126) U/L Total Protein (6.3-8.2) g/dL Albumin (3.5-5.0) g/dL Globulin (1.7-4.1) g/dL Albumin/Globulin Ratio (1.0-2.8) SARS-CoV-2 (PCR) (Negative) Imaging Data CT - cervical spine: Radiologist's Impression: [address] [address] [address] Scan Report Signed Patient: Maksim Eason MR#: [id number] : 1935 Acct:[id number] Age/Sex: 86 / M Date of Service: 12/03/21 Loc: ED Accession Number: [id number] ?? Procedure: CT cervical spine wo con Ordering Provider: Maria Esther Charles PROCEDURE:? CT CERVICAL SPINE WO CON ? INDICATIONS:? fall ? TECHNIQUE:? Noncontrast 3 mm thick sections acquired from the skull base to the T4 level.? Sagittal and coronal reformats were then constructed.? For radiation dose reduction, the following was used:? automated exposure control, adjustment of mA and/or kV according to patient size.? ? COMPARISON:? [facility], CT, CT CHEST ABD PEL W CON, 09/17/2020, 13:14. ? FINDINGS:? Image quality:? Excellent.? ? Bones:? No fractures or dislocations.? Visualized superior ribs are intact.? Multilevel degenerative changes are present. ? Soft tissues:? Prevertebral soft tissues are normal in thickness.? No paravertebral hematomas.? No apical pneumothoraces.? Multiple bilateral subcentimeter pulmonary nodules are present within the apices, unchanged compared to prior exam. ? ? IMPRESSION:? ? Multilevel degenerative changes without visualized fracture. ? Multiple bilateral pulmonary nodules, unchanged. ? Dictated by: Lissett Ortiz M.D. on 12/03/2021 at 16:05 ? ? Approved by: Lissett Ortiz M.D. on 12/03/2021 at 16:08? CT scan - head: Radiologist's Impression: [place] [address] CT Scan Report Signed Patient: Maksim Eason MR#: [id number] : 1935 Acct:[id number] Age/Sex: 86 / M Date of Service: 12/03/21 Loc: ED Accession Number: [id number] ?? Procedure: CT head/brain wo con Ordering Provider: Maria Esther Charles PROCEDURE:? CT HEAD/BRAIN WO CON ? INDICATIONS:? fall ? TECHNIQUE:? Noncontrast 4.5 mm thick angled axial sections acquired from the foramen magnum to the vertex, with coronal and sagittal reformats.? For radiation dose reduction, the following was used:? automated exposure control, adjustment of mA and/or kV according to patient size.? ? COMPARISON:? [facility], CT, HEAD WITHOUT CONTRAST, 11/07/2014, 15:36.? [facility], CT, HEAD WITHOUT CONTRAST, 11/10/2014, 2:18.? [facility], CT, HEAD WITHOUT CONTRAST, 03/06/2015, 22:41.? [facility], CT, HEAD WITHOUT CONTRAST, 08/28/2017, 18:58. ? FINDINGS:? Image quality:? Excellent.? ? CSF spaces:? Basal cisterns are patent.? No extra-axial fluid collections.? The ventricles are symmetric in size and shape.? ? Brain:? No intracranial bleeds or masses.? There is cerebral volume loss for age, with resultant ventricular and sulcal prominence.? There are periventricular and deep white matter chronic small vessel ischemic changes.? Remote infarctions are seen, including involving both occipital lobes and the right anterior frontal lobe.? There is intracranial internal carotid artery atherosclerosis.? ? Skull and face:? Calvarium and visualized facial bones appear intact, without suspicious lesions.? ? Sinuses:? Visualized sinuses and mastoids are clear.? ? ? IMPRESSION:? No acute intracranial hemorrhage is seen.? ? No acute intracranial process is seen.? ? 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 ? ? Dictated by: Javon Craft M.D. on 12/03/2021 at 14:49 ? ? Approved by: Javon Craft M.D. on 12/03/2021 at 14:50?? Extremity x-ray #1: Radiologist's Impression: [place] [address] XRay Report Signed Patient: Maksim Eason MR#: [id number] : 1935 Acct:[id number] Age/Sex: 86 / M Date of Service: 12/03/21 Loc: ED Accession Number: [id number] ?? Procedure: XR knee LT 3V Ordering Provider: Maria Esther Charles PROCEDURE:? XR KNEE LT 3V ? INDICATIONS:? fall ? TECHNIQUE:? 3 views of the knee were acquired.? ? COMPARISON:? None. ? FINDINGS:? ? Bones:? No fractures or dislocations.? No suspicious bony lesions.? Moderate medial and mild to moderate lateral patellofemoral compartment arthritic narrowing.? Chondrocalcinosis is present. ? Soft tissues:? Mild joint effusion.? No suspicious soft tissue calcifications.? ? ? IMPRESSION:? No visualized acute fracture or dislocation. However, if clinical concern and/or pain persist, short interval imaging followup in 7-10 days is recommended, as occult injury cannot be definitively excluded. ? ? Dictated by: Lissett Ortiz M.D. on 12/03/2021 at 16:08 ? ? Approved by: Lissett Ortiz M.D. on 12/03/2021 at 16:08?? Extremity x-ray #2: Radiologist's Impression: [address] [address] XRay Report Signed Patient: Maksim Eason MR#: [id number] : 1935 Acct:[id number] Age/Sex: 86 / M Date of Service: 12/03/21 Loc: ED Accession Number: [id number] ?? Procedure: XR knee RT 3V Ordering Provider: Maria Esther Charles PROCEDURE:? XR KNEE RT 3V ? INDICATIONS:? NON TRAUMATIC KNEE PAIN ? TECHNIQUE:? 3 views of the knee were acquired.? ? COMPARISON:? None. ? FINDINGS:? ? Bones:? No fractures or dislocations.? No suspicious bony lesions.? [id number] medial and mild lateral patellofemoral compartment narrowing.? Periarticular osteophytes are present without erosions.? Chondrocalcinosis is noted. ? Soft tissues:? Mild joint effusion.? No suspicious soft tissue calcifications.? ? ? IMPRESSION:? Tricompartmental arthritic change. No visualized acute fracture or dislocation. However, if clinical concern and/or pain persist, short interval imaging followup in 7-10 days is recommended, as occult injury cannot be definitively excluded.? ? ? Dictated by: Lissett Ortiz M.D. on 12/03/2021 at 16:08 ? ? Approved by: Lissett Ortiz M.D. on 12/03/2021 at 16:09?? ECG Data Attestation: I personally reviewed and interpreted this ECG as follows: Interpretation: Sinus rhythm Ventricular rate is 78 Normal axis Normal QRS Normal QTC ST T wave changes MDM Narrative Medical decision making narrative: Patient's head CT and cervical spine CT and bilateral knee x-rays are unremarkable. Labs were ordered in triage and a does show an elevation in the potassium. Patient is asymptomatic from this. His EKG is unremarkable. He states he has had elevation in his potassium in the past and has been on and off of potassium supplementation. He is unsure whether not he is taking this currently. I did inform him of the findings of the head CT in the x-rays. Does not appear to be any acute pathology from his fall this was certainly a mechanical fall per his report. Patient was given Lasix and albuterol to try to help bring down his potassium. Care turned over to Dr. Xie to follow-up on lab results and disposition. <Juan Xie, DO - Last Filed: 12/03/21 20:10> Lab Data Labs: Lab Results 12/03/21 12/03/21 12/03/21 Range/Units 15:30 15:30 16:36 WBC 5.6 (4.5-11.0) X10^3/uL RBC 3.19 L (4.5-5.9) X10^6/uL Hgb 9.5 L (13.5-17.5) g/dL Hct 29.3 L (41-53) % MCV 92.1 (80-100) fL MCH 29.9 (26-34) PG MCHC 32.4 (30-36) % RDW 16.5 H (11.6-14.8) % Plt Count 171 (150-400) X10^3/uL Neut % (Auto) 78.5 H (50-75) % Lymph % (Auto) 8.3 L (25-40) % [place] % (Auto) 12.3 (3-14) % Eos % (Auto) 0.4 L (2-4) % Baso % (Auto) 0.5 (0-2) % Neut # (Auto) 4400 (1711-2279) /uL Lymph # (Auto) 500 L (5923-3746) /uL [place] # (Auto) 700 (0-900) /uL Eos # (Auto) 0 (0-450) /uL Baso # (Auto) 0 (0-100) /uL Sodium 132 L (137-145) mmol/L Potassium 6.4 H* (3.4-5.1) mmol/L Chloride 107 (98-107) mmol/L Carbon Dioxide 15 L (22-32) mmol/L BUN 36 H (9-20) mg/dL Creatinine 1.69 H (0.66-1.25) mg/dL Estimated GFR 40 L (>60) mL/min BUN/Creatinine Ratio 21.3 (6-22) Glucose 117 H (80-110) mg/dL Calcium 8.2 L (8.4-10.2) mg/dL Magnesium 2.1 (1.6-2.3) mg/dL Total Bilirubin 0.3 (0.2-1.3) mg/dL AST 24 (17-59) IU/L ALT 13 (<50) IU/L Alkaline Phosphatase 138 H (38-126) U/L Total Protein 7.6 (6.3-8.2) g/dL Albumin 3.7 (3.5-5.0) g/dL Globulin 3.9 (1.7-4.1) g/dL Albumin/Globulin Ratio 0.9 L (1.0-2.8) SARS-CoV-2 (PCR) Negative (Negative) 12/03/21 Range/Units 19:00 WBC (4.5-11.0) X10^3/uL RBC (4.5-5.9) X10^6/uL Hgb (13.5-17.5) g/dL Hct (41-53) % MCV (80-100) fL MCH (26-34) PG MCHC (30-36) % RDW (11.6-14.8) % Plt Count (150-400) X10^3/uL Neut % (Auto) (50-75) % Lymph % (Auto) (25-40) % [place] % (Auto) (3-14) % Eos % (Auto) (2-4) % Baso % (Auto) (0-2) % Neut # (Auto) (8860-6843) /uL Lymph # (Auto) (4712-7535) /uL [place] # (Auto) (0-900) /uL Eos # (Auto) (0-450) /uL Baso # (Auto) (0-100) /uL Sodium 133 L (137-145) mmol/L Potassium 5.6 H (3.4-5.1) mmol/L Chloride 109 H (98-107) mmol/L Carbon Dioxide 15 L (22-32) mmol/L BUN 37 H (9-20) mg/dL Creatinine 1.69 H (0.66-1.25) mg/dL Estimated GFR 40 L (>60) mL/min BUN/Creatinine Ratio 21.9 (6-22) Glucose 110 (80-110) mg/dL Calcium 8.0 L (8.4-10.2) mg/dL Magnesium (1.6-2.3) mg/dL Total Bilirubin (0.2-1.3) mg/dL AST (17-59) IU/L ALT (<50) IU/L Alkaline Phosphatase (38-126) U/L Total Protein (6.3-8.2) g/dL Albumin (3.5-5.0) g/dL Globulin (1.7-4.1) g/dL Albumin/Globulin Ratio (1.0-2.8) SARS-CoV-2 (PCR) (Negative) MDM Narrative Medical decision making narrative: Patient's head CT and cervical spine CT and bilateral knee x-rays are unremarkable. Labs were ordered in triage and a does show an elevation in the potassium. Patient is asymptomatic from this. His EKG is unremarkable. He states he has had elevation in his potassium in the past and has been on and off of potassium supplementation. He is unsure whether not he is taking this currently. I did inform him of the findings of the head CT in the x-rays. Does not appear to be any acute pathology from his fall this was certainly a mechanical fall per his report. Patient was given Lasix and albuterol to try to help bring down his potassium. Care turned over to Dr. Xie to follow-up on lab results and disposition. [1900] (Rojas) Patient received in sign out from [Prabha]. I have reviewed the clinical course and performed an independent history and physical exam. Imaging and labs have been reviewed with patient and his . He would prefer nothing more than Tylenol for pain, this is appropriate given his aging and unsteady gait at baseline. His potassium is improved to 5.6, he has chronically elevated. He has an appointment next week with his primary care provider, he has been given extensive return precautions and questions answered to his apparent satisfaction Discharge Plan Departure Patient Disposition: Home Clinical Impression: Acute hyperkalemia, Knee contusion, Acute neck sprain Instructions: How to Prevent Falls Activity Restrictions/Additional Instructions: *You have been diagnosed with [minor injuries from fall. Additionally, your elevated potassium has resolved after typical therapies. *What to do: *Please continue to take your regular medications as directed. [ ] New medication prescriptions sent to your pharmacy: [ ] [ ] New medication written as a paper prescription [x ] No new medications given *Please follow up with your primary care provider in 2-3 days, call for an appointment. Let them know you were seen in the Emergency Department and that we ask that you be seen in follow up. We will electronically transmit a record of today's note if your PCP is in our system *If you do not have a primary care provider please contact the [facility] Resource line at [phone]. They will ask some questions about your medical history and help get you set up with a doctor in the community. *Return to Emergency Department if you should have any new, worsening or concerning symptoms, such as [fever greater than 101 F, shaking chills, worsening pain, persistent vomiting or other bothersome symptoms] Prescriptions: No Action aspirin 81 MG tablet,delayed release (DR/EC) 81 mg PO QDAY Qty: 0 0RF levothyroxine 75 mcg tablet 75 mcg PO QAM Qty: 90 0RF spironolactone 25 mg tablet 50 mg PO BID Qty: 360 3RF losartan 25 mg tablet See Rx Instructions .ROUTE .COMPLEX Qty: 90 3RF Dose Instruction: TAKE 1 TABLET BY MOUTH EVERY DAY Rx Instructions: TAKE 1 TABLET BY MOUTH EVERY DAY bumetanide 2 mg tablet See Rx Instructions .ROUTE .COMPLEX Qty: 360 0RF Dose Instruction: TAKE 1 TABLET BY MOUTH TWICE DAILY Rx Instructions: TAKE 1 TABLET BY MOUTH TWICE DAILY lovastatin 40 mg tablet 40 mg PO BEDTIME Qty: 90 3RF phenytoin sodium extended [Dilantin Extended] 100 mg capsule See Rx Instructions PO BID Qty: 450 3RF Rx Instructions: 3 in am and 2 in pm PO twice a day; ascorbic acid (vitamin C) PO 0RF multivitamin tablet 1 tab PO DAILY 0RF triamcinolone acetonide 0.1 % cream 1 applic topical BID PRN (Reason: skin irritation, redness) Qty: 80 2RF cephalexin 500 mg capsule 500 mg PO QID Qty: 40 0RF Entresto 24-26 mg Tablet 1 tab PO BID 0RF acetaminophen [Tylenol] 325 mg capsule 650 mg PO QID PRN (Reason: pain) Qty: 60 0RF ferrous sulfate 134 mg (27 mg iron) Tablet 134 mg PO DAILY 0RF Referrals: Mario Arizmendi MD [Primary Care Provider] -
[2021-12-03] MEDS: FUROSEMIDE 40 MG/4 ML VIAL IV (16:52)
[2021-12-03] MEDS: ALBUTEROL 2.5 MG/3 ML NEB (ADULT) 5 MG INH (17:05)
[2021-12-03 17:15] LABS: COVID19 -Nasal RAPID Negative (Negative)
[2021-12-03] MEDS: ALBUTEROL 2.5 MG/3 ML NEB (ADULT) INH (17:16)
[2021-12-03 19:29] LABS: BUN Creatinine Ratio 21.9 (6-22); Blood Urea Nitrogen 37 mg/dL (9-20); Carbon Dioxide 15 mmol/L (22-32); Chloride 109 mmol/L (98-107); Estimated Glomerular Filt Rate 40 mL/min (>60); Glucose 110 mg/dL (80-110); HEMOLYSIS < 15 (0-50); Sodium 133 mmol/L (137-145)
[2021-12-03 19:42] LABS: Potassium 5.6 mmol/L (3.4-5.1)
== END 2021-12-03 20:20 | disposition home or self-care (01) ==
PROVIDERS: Emergency Medicine; Nurse Practitioner Critical Care Medicine; Emergency Provider Emergency Medicine; PCP Family Medicine
DX: E87.5 Hyperkalemia (principal); S80.01XA Contusion of right knee, initial encounter; S13.9XXA Sprain of joints and ligaments of unspecified parts of neck, initial encounter; W19.XXXA Unspecified fall, initial encounter; Z20.822 Contact with and (suspected) exposure to COVID-19
CPT/HCPCS: 36415; 70450; 72125; 73562; 80048; 80053; 83735; 85025; 87635; 93005; 94640; 96374; 99285; C9803; J1940; J7613

== ENCOUNTER 2022-01-03 17:04 | Emergency (ER) | payer MEDICARE, SELFPAY ==
[2022-01-03 17:09] VITALS: BP 122/58; PULSE 88; RESP 22; TEMP 37.6; O2SAT 89
--- NOTE | 2022-01-03 17:15 | DI.RAD.S_ITS ---
PROCEDURE: XR CHEST 2V INDICATIONS: Cough, fever, COVID. TECHNIQUE: 2 views of the chest were acquired. COMPARISON: [facility] [place] [facility], [place], [place] FUSION SKULL 2 THIGH, 12/30/2020, 9:17. [facility], [place], XR CHEST 1V, 02/15/2020, 11:53. FINDINGS: Left chest wall 2 lead cardiac pacing device and median sternotomy changes for CABG. Heart size is within normal limits. Diffuse patchy mixed increased interstitial and airspace opacities in both lungs, similar in appearance to multiple prior studies including 02/15/2020 chest radiograph and 09/17/2020 CT chest/abdomen/pelvis. There is suggestion of at least a few discrete nodules, and in a patient with prior history of extensive pulmonary metastatic disease these concerning for disease recurrence. IMPRESSION: Diffuse patchy interstitial and airspace opacities in both lungs which are non-specific but would be consistent with infection including COVID-19 pneumonia. However, it should be noted that the patient has history of metastatic disease including a PET-CT performed 12/30/2020 with innumerable pulmonary metastases. The suggestion of numerous pulmonary nodules on this study raises concern for pulmonary metastatic disease including lymphangitic spread accounting for some of the interstitial opacity demonstrated currently. Dictated by: Sadiq Castillo M.D. on 01/03/2022 at 18:16 Approved by: Sadiq Castillo M.D. on 01/03/2022 at 18:19
[2022-01-03 17:38] LABS: COVID19 -Nasal RAPID POSITIVE (Negative)
[2022-01-03 20:33] VITALS: O2SAT 94
[2022-01-03 20:34] VITALS: BP 101/49; PULSE 67; O2SAT 93
[2022-01-03 21:00] VITALS: PULSE 66; O2SAT 92
--- NOTE | 2022-01-03 21:09 | ED_ITS ---
HPI - General Adult General Chief complaint: Upper Respiratory Symptoms Stated complaint: COUGH SORE THROAT HARD TIME WALKING Time Seen by Provider: 01/03/22 20:40 Source: patient and family Mode of arrival: Wheelchair Limitations: no limitations History of Present Illness HPI narrative: Patient is an 86-year-old male who has been vaccinated against COVID who had a positive COVID test a couple days ago who is here for evaluation of a cough and a sore throat. Patient does have underlying lung pathology. He has oxygen at home. He states that frequently his oxygen saturations are in the mid 80s sometimes even lower than that. He uses his oxygen is needed. He states he is here because his wanted him to come in to be evaluated because he has been coughing especially at night. He denies chest pain. No fevers. He does state that he takes longer to recover from his shortness of breath when he gets up and moves around from his baseline. His had similar symptoms but she is improved. Related Data Home Medications Medication Instructions Recorded Confirmed aspirin 81 mg tablet,delayed 81 mg PO QDAY ##0 03/31/17 12/14/21 release multivitamin 1 tab PO DAILY 12/19/18 12/14/21 ferrous sulfate 134 mg (27 mg 134 mg PO DAILY 02/15/20 12/14/21 iron) tablet ascorbic acid (vitamin C) PO 04/01/21 12/14/21 sacubitril 24 mg-valsartan 26 mg 1 tab PO BID 09/15/21 12/14/21 tablet (Entresto) Previous Rx's Medication Instructions Recorded levothyroxine 75 mcg tablet 75 mcg PO QAM #90 tabs 08/17/20 acetaminophen 325 mg capsule 650 mg PO QID PRN pain #60 caps 11/17/20 (Tylenol) bumetanide 2 mg tablet See Rx Instructions .Route 03/09/21 .COMPLEX #360 tabs lovastatin 40 mg tablet 40 mg PO BEDTIME #90 tabs 08/16/21 phenytoin sodium extended 100 mg See Rx Instructions PO BID #450 09/21/21 capsule (Dilantin Extended) caplets triamcinolone acetonide 0.1 % 1 applic topical BID PRN skin 11/12/21 topical cream irritation, redness #80 grams spironolactone 25 mg tablet 50 mg PO BID #360 tabs 12/20/21 benzonatate 100 mg capsule 100 mg PO TID PRN cough #20 caps 01/03/22 Allergies Allergy/AdvReac Type Severity Reaction Status Date / Time Beta-Blockers Allergy Severe can't Verified 12/03/21 13:14 (Beta-Adrenergic Bloc breathe [BETA-BLOCKERS (BETA-ADRENERGIC BLOC] doxycycline [DOXYCYCLINE] Allergy Intermediate CHEST PAIN Verified 12/03/21 13:14 codeine [CODEINE] AdvReac Mild VERTIGO, Verified 12/03/21 13:14 GI UPSET Review of Systems Constitutional Constitutional: Reports system reviewed and no additional complaints, except as documented Cardiovascular Cardiovascular: Reports system reviewed and no additional complaints, except as documented Respiratory Respiratory: Reports system reviewed and no additional complaints, except as documented Gastrointestinal Gastrointestinal: Reports system reviewed and no additional complaints, except as documented Integumentary/Breasts Skin/Breast: Reports system reviewed and no additional complaints, except as documented Hematologic/Lymphatic On Anticoagulants: No Patient History Medical History Amyloidosis COPD with exacerbation CVA (cerebral vascular accident) Diastolic dysfunction Grand mal seizure History of pacemaker Hx of ulcer disease ILD (interstitial lung disease) Iron deficiency anemia Ischemic cardiomyopathy Lymphoma Myocardial infarction (2004) Pulmonary mass Secondary pulmonary arterial hypertension Silicosis Surgical History AICD (automatic cardioverter/defibrillator) present History of mitral valve repair (2006) Hx of cholecystectomy Hx of heart bypass surgery S/P CABG x 4 (2006) Social History marital status: unknown household members: spouse and none occupational status: previously employed Smoking Status: Former smoker Tobacco: How many years used: 35 alcohol intake: current (1 drink per 3-4 months ) substance use type: does not use Smoking Status: Former smoker alcohol intake frequency: holidays/special occasions only Substance Use Type: does not use Exam Initial Vital Signs Initial Vital Signs: Vital Signs Temperature 99.7 F H 01/03/22 17:09 Pulse Rate 88 01/03/22 17:09 Respiratory Rate 22 01/03/22 17:09 Blood Pressure 122/58 L 01/03/22 17:09 Pulse Oximetry 89 L 01/03/22 17:09 Oxygen Delivery Method 01/03/22 17:09 Const General: cooperative and healthy appearing [facility] Head: normal to inspection Resp Effort & Inspection: not labored and tachypneic Auscultation: clear to auscultation bilaterally Cardio Rate: regular rate Rhythm: regular rhythm Skin General: no rashes or lesions noted Neuro General: patient alert, patient awake and moves all extremities Extrem General: normal to inspection Course Orders Ordered: ED Orders 01/03/22 17:15 XR chest 2V Stat COVID19 -Nasal RAPID/Pre-Proc Stat Vital Signs Vital signs: Vital Signs - 8 hr 01/03/22 20:33 01/03/22 20:34 01/03/22 20:34 Pulse Rate 67 Blood Pressure 101/49 L Pulse Oximetry 94 93 Oxygen Delivery Method Room Air 01/03/22 21:00 Pulse Rate 66 Blood Pressure Pulse Oximetry 92 Oxygen Delivery Method Room Air Medical Decision Making Lab Data Lab results reviewed: Yes I reviewed the patient's lab results. Labs: Lab Results 01/03/22 Range/Units 17:15 SARS-CoV-2 (PCR) Positive H (Negative) Imaging Data Chest x-ray: Radiologist's Impression: [address] [address] XRay Report Signed Patient: Maksim Eason MR#: [id number] : 1935 Acct:[id number] Age/Sex: 86 / M Date of Service: 01/03/22 Loc: ED Accession Number: [id number] ?? Procedure: XR chest 2V Ordering Provider: Mackenzie Peterson D.O. PROCEDURE:? XR CHEST 2V ? INDICATIONS:? Cough, fever, COVID. ? TECHNIQUE:? 2 views of the chest were acquired.? ? COMPARISON:? [facility], [place], [place] CT FUSION SKULL 2 THIGH, 12/30/2020, 9:17.? [facility], [place], XR CHEST 1V, 02/15/2020, 11:53. ? FINDINGS:? ? Left chest wall 2 lead cardiac pacing device and median sternotomy changes for CABG.? Heart size is within normal limits.? Diffuse patchy mixed increased interstitial and airspace opacities in both lungs, similar in appearance to multiple prior studies including 02/15/2020 chest radiograph and 09/17/2020 CT chest/abdomen/pelvis.? There is suggestion of at least a few discrete nodules, and in a patient with prior history of extensive pulmonary metastatic disease these concerning for disease recurrence. ? IMPRESSION:? ? Diffuse patchy interstitial and airspace opacities in both lungs which are non- specific but would be consistent with infection including COVID-19 pneumonia.? However, it should be noted that the patient has history of metastatic disease including a PET-CT performed 12/30/2020 with innumerable pulmonary metastases.? The suggestion of numerous pulmonary nodules on this study raises concern for pulmonary metastatic disease including lymphangitic spread accounting for some of the interstitial opacity demonstrated currently.? ? Dictated by: Sadiq Castillo M.D. on 01/03/2022 at 18:16 ? ? Approved by: Sadiq Castillo M.D. on 01/03/2022 at 18:19?? MDM Narrative Medical decision making narrative: Other than taking longer to recover when he gets up and walks around he feels like he is at his baseline respiratory status. He has oxygen at home to use as needed when he become short of breath. Had a discussion with the patient regarding his COVID diagnosis in that this symptoms that he presents with her consistent with COVID. Will try Tessalon to see if this helps some of his cough and he understands that it may not do much for his symptoms. He was instructed that he needs to use his oxygen at home if he become short of breath and we did discuss strict return precautions. Given the fact that he has oxygen at home patient does not require admission to the hospital today. He expressed understanding agreement this plan. Discharge Plan Departure Patient Disposition: Home Clinical Impression: COVID-19 Instructions: DI for COVID-19 (Suspected or Confirmed ) Activity Restrictions/Additional Instructions: Recommend that you use your oxygen at home as needed. Continue to take all of your medications. Contact your primary doctor for follow-up to discuss the chest x-ray today and your other respiratory issues. Return to the emergency department for any new or worsening symptoms. Prescriptions: New benzonatate 100 mg capsule 100 mg PO TID PRN (Reason: cough) Qty: 20 0RF No Action aspirin 81 MG tablet,delayed release (DR/EC) 81 mg PO QDAY Qty: 0 levothyroxine 75 mcg tablet 75 mcg PO QAM Qty: 90 0RF bumetanide 2 mg tablet See Rx Instructions .ROUTE .COMPLEX Qty: 360 0RF Dose Instruction: TAKE 1 TABLET BY MOUTH TWICE DAILY Rx Instructions: TAKE 1 TABLET BY MOUTH TWICE DAILY lovastatin 40 mg tablet 40 mg PO BEDTIME Qty: 90 3RF phenytoin sodium extended [Dilantin Extended] 100 mg capsule See Rx Instructions PO BID Qty: 450 3RF Rx Instructions: 3 in am and 2 in pm PO twice a day; spironolactone 25 mg tablet 50 mg PO BID Qty: 360 3RF ascorbic acid (vitamin C) PO multivitamin tablet 1 tab PO DAILY triamcinolone acetonide 0.1 % cream 1 applic topical BID PRN (Reason: skin irritation, redness) Qty: 80 2RF Entresto 24-26 mg Tablet 1 tab PO BID acetaminophen [Tylenol] 325 mg capsule 650 mg PO QID PRN (Reason: pain) Qty: 60 0RF ferrous sulfate 134 mg (27 mg iron) Tablet 134 mg PO DAILY Referrals: Mario Arizmendi MD [Primary Care Provider] - Visit Report Forms: Patient Portal/API
== END 2022-01-03 21:25 | disposition home or self-care (01) ==
PROVIDERS: Emergency Medicine; Emergency Provider Emergency Medicine; PCP Family Medicine
DX: U07.1 COVID-19 (principal)
CPT/HCPCS: 71046; 87635; 99281; 99283; C9803

== ENCOUNTER 2022-01-05 16:33 | Inpatient (IN) | payer MEDICARE, SELFPAY ==
[2022-01-05] VITALS (15 sets, daily range): BP systolic 114–140; BP diastolic 55–90; PULSE 73–139; RESP 18–26; TEMP 36.6–36.9; O2SAT 89–99; BMI 21.6
--- NOTE | 2022-01-05 | DI.US.S_ITS ---
PROCEDURE: US RENAL COMPLETE INDICATIONS: ACUTE KIDNEY INFECTION TECHNIQUE: Real-time scanning was performed of the kidneys and bladder, with image documentation. COMPARISON: [facility], [place], XR CHEST 1V, 01/05/2022, 17:48. FINDINGS: Kidneys: Kidneys are normal in size. Right kidney measures 8.9 cm long; left kidney measures 10.5 cm long. Right renal cortical thickness is 1.4 cm; left renal cortical thickness is 1.4 cm. Renal cortical echotexture is normal. No hydronephrosis or nephrolithiasis. No suspicious solid mass lesions. Bladder: The bladder is not distended its evaluation is poor. Miscellaneous: No free pelvic fluid. IMPRESSION: Normal appearing kidneys, without hydronephrosis. Poor evaluation of the bladder, which is not distended. Dictated by: Javon Craft M.D. on 01/06/2022 at 10:20 Approved by: Javon Craft M.D. on 01/06/2022 at 10:22
--- NOTE | 2022-01-05 17:37 | DI.RAD.S_ITS ---
PROCEDURE: XR CHEST 1V INDICATIONS: covid +, cough, weakness TECHNIQUE: One view of the chest was acquired. COMPARISON: [facility], CR, XR CHEST 2V, 01/03/2022, 17:33. FINDINGS: Surgical changes and devices: Left-sided dual-chamber pacemaker/defibrillator remains unchanged. Midline sternal wires present. Lungs and pleura: Patchy bilateral pulmonary infiltrates are similar to the prior exam. Pleural spaces are clear. Mediastinum: Heart size pulmonary vascular normal. Atherosclerotic vascular calcification noted in the aortic arch. Bones and chest wall: No suspicious bony lesions. Overlying soft tissues appear unremarkable. IMPRESSION: Patchy bilateral pulmonary infiltrates, similar prior exam Approved by: Terrell Rosales M.D. on 01/05/2022 at 17:27
[2022-01-05] MEDS: ACETAMINOPHEN 325 MG TABLET 650 MG PO (17:49)
[2022-01-05] MEDS: guaiFENesin Solution 100 MG/5 ML UDC PO (17:50)
--- NOTE | 2022-01-05 18:18 | ED_ITS ---
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 Patient tested positive in the emergency department for COVID on 01/03/2022. He was unable to be treated with Paxlovid due to his Dilantin dosing at home. Patient has been ill for the last 4-5 days with COVID symptoms. States that his throat is very sore and he has been unable to swallow his medications so he has not been taking his medications the last couple days. Patient states that when he wakes up in the morning, his oxygen level is usually in the low 70s to 80s on that is why he wears the oxygen and time. He states that he has been wearing it more frequently since he got COVID. Patient is satting 89% currently in the emergency department on 3 L nasal cannula, he has tachypnea, increased work of breathing, and complains of a sore throat with a productive cough. Related Data Home Medications Medication Instructions Recorded Confirmed aspirin 81 mg tablet,delayed 81 mg PO QDAY ##0 03/31/17 12/14/21 release multivitamin 1 tab PO DAILY 12/19/18 12/14/21 ferrous sulfate 134 mg (27 mg 134 mg PO DAILY 02/15/20 12/14/21 iron) tablet ascorbic acid (vitamin C) PO 04/01/21 12/14/21 sacubitril 24 mg-valsartan 26 mg 1 tab PO BID 09/15/21 12/14/21 tablet (Entresto) Previous Rx's Medication Instructions Recorded levothyroxine 75 mcg tablet 75 mcg PO QAM #90 tabs 08/17/20 acetaminophen 325 mg capsule 650 mg PO QID PRN pain #60 caps 04/27/21 (Tylenol) bumetanide 2 mg tablet See Rx Instructions .Route 03/09/21 .COMPLEX #360 tabs lovastatin 40 mg tablet 40 mg PO BEDTIME #90 tabs 08/16/21 phenytoin sodium extended 100 mg See Rx Instructions PO BID #450 09/21/21 capsule (Dilantin Extended) caplets triamcinolone acetonide 0.1 % 1 applic topical BID PRN skin 11/12/21 topical cream irritation, redness #80 grams spironolactone 25 mg tablet 50 mg PO BID #360 tabs 12/20/21 benzonatate 100 mg capsule 100 mg PO TID PRN cough #20 caps 01/03/22 Allergies Allergy/AdvReac Type Severity Reaction Status Date / Time Beta-Blockers Allergy Severe can't Verified 12/03/21 13:14 (Beta-Adrenergic Bloc breathe [BETA-BLOCKERS (BETA-ADRENERGIC BLOC] doxycycline [DOXYCYCLINE] Allergy Intermediate CHEST PAIN Verified 12/03/21 13:14 codeine [CODEINE] AdvReac Mild VERTIGO, Verified 12/03/21 13:14 GI UPSET Review of Systems <KEN Vincent - Last Filed: 01/05/22 20:38> Review of Systems Narrative: General: denies fever, chills, endorses significant fatigue, does not have energy to stand, weakness Head/Neck: denies headache, neck pain, endorses sore throat Eyes: denies visual changes, eye pain Cardio: denies chest pain, palpitations Respiratory: Endorses shortness of breath, frequent cough GI: denies abdominal pain, nausea, vomiting, or diarrhea : Endorses incontinence because unable to get up to go to the bathroom MSK: denies new joint pain, muscle weakness or swelling Skin: denies rash, itching or wound Neuro: denies numbness, tingling, dizziness Patient History <KEN Vincent - Last Filed: 01/05/22 20:38> Medical History Amyloidosis COPD with exacerbation CVA (cerebral vascular accident) Diastolic dysfunction Grand mal seizure History of pacemaker Hx of ulcer disease ILD (interstitial lung disease) Iron deficiency anemia Ischemic cardiomyopathy Lymphoma Myocardial infarction (2004) Pulmonary mass Secondary pulmonary arterial hypertension Silicosis Surgical History AICD (automatic cardioverter/defibrillator) present History of mitral valve repair (2006) Hx of cholecystectomy Hx of heart bypass surgery S/P CABG x 4 (2006) Social History marital status: unknown household members: spouse and none occupational status: previously employed Smoking Status: Former smoker Tobacco: How many years used: 35 alcohol intake: current (1 drink per 3-4 months ) substance use type: does not use Smoking Status: Former smoker alcohol intake frequency: holidays/special occasions only Substance Use Type: does not use Exam <KEN Vincent - Last Filed: 01/05/22 20:38> Narrative Exam Narrative: Independently reviewed vitals signs and nursing notes. General: cooperative, comfortable, appears fatigued, states that he feels miserable, appears weak, unable to scoot self up in bed Head: atraumatic, symmetrical facial expressions Neck: supple, mildly erythematous posterior pharynx Eyes: equal round and reactive, EOMI, conjunctiva normal Nose: nares patent, no rhinorrhea Mouth/Throat: moist mucus membranes Cardiovascular: regular rate and rhythm, pitting edema bilateral lower extremities, warm extremities Respiratory: Increased respiratory effort, on 3 L nasal cannula, able to speak in short sentences, no audible wheezing, stridor, or rales. Diminished breath sounds in bases, tachypneic. GI: abdomen soft, nontender to palpation, nondistended, no masses, no exquisite tenderness with exam, without guarding or rebound. MSK: moves all extremities, neurovascularly intact, no weakness, normal tone Skin: brisk capillary refill, no rash, no erythema Neuro: normal speech and cognition, A&O x3 Psych: mental status is grossly normal, congruent mood, normal affect, pleasant and cooperative Initial Vital Signs Initial Vital Signs: Vital Signs Temperature 98.4 F 01/05/22 16:38 Pulse Rate 86 01/05/22 16:38 Respiratory Rate 24 01/05/22 16:38 Blood Pressure 114/55 L 01/05/22 16:38 Pulse Oximetry 89 L 01/05/22 16:38 Oxygen Delivery Method 01/05/22 16:38 Oxygen Flow Rate 3 01/05/22 16:38 <Jaime Armando DO - Last Filed: 01/05/22 22:03> Initial Vital Signs Initial Vital Signs: Vital Signs Temperature 98.4 F 01/05/22 16:38 Pulse Rate 86 01/05/22 16:38 Respiratory Rate 24 01/05/22 16:38 Blood Pressure 114/55 L 01/05/22 16:38 Pulse Oximetry 89 L 01/05/22 16:38 Oxygen Delivery Method 01/05/22 16:38 Oxygen Flow Rate 3 01/05/22 16:38 Course <KEN Vincent - Last Filed: 01/05/22 20:38> Orders Ordered: ED Orders 01/05/22 17:37 XR chest 1V Stat 01/05/22 18:52 COVID19 -Nasal RAPID/Pre-Proc Stat 01/05/22 18:55 BNP [NT-proBNP (BNP-Adult 18+)] Stat CBC Auto Diff [Complete Blood Count AUTO DIFF] Stat CMP [Comprehensive Metabolic Panel] Stat Magnesium Stat Troponin & CK Cardiac Panel Stat 01/06/22 05:00 Basic Metabolic Panel Routine Complete Blood Count AUTO DIFF Routine Magnesium Routine Phosphorous Routine Acetaminophen (Acetaminophen 325 Mg Tablet) 650 mg PO Q6HR PRN PRN Reason: pain Dexamethasone (Dexamethasone 10 Mg/Ml Vial) 6 mg IV DAILY [facility] Furosemide (Furosemide 100 Mg/10 Ml Vial) 80 mg IV Q12H [facility] Heparin Sodium (Porcine) (Heparin 5,000 Unit/Ml Vial) 5,000 unit SUBCUT BID [facility] Azithromycin 500 mg/ Dextrose 250 mls @ 250 mls/hr IV Q24H [facility] Levothyroxine Sodium (Levothyroxine 75 Mcg Tablet) 75 mcg PO QACBREAK [facility] Naloxone HCl (Naloxone 0.4 Mg/Ml Vial) 0.2 mg IV Q2MIN PRN PRN Reason: Opiate Reversal Ondansetron HCl (Ondansetron 4 Mg/2 Ml Inj) 4 mg IV Q8HR PRN PRN Reason: Nausea And Vomiting Phenytoin Sodium (Phenytoin Er 100 Mg Capsule) 300 mg PO DAILY [facility] Phenytoin Sodium (Phenytoin Er 100 Mg Capsule) 200 mg PO BEDTIME [facility] Discontinued Medications Acetaminophen (Acetaminophen 325 Mg Tablet) 650 mg PO NOW ONE Stop: 01/05/22 17:40 Last Admin: 01/05/22 17:49 Dose: 650 mg Documented By: TANIA Benzocaine (Benzocaine/Menthol 1 Bere Pkt) 1 each PO NOW ONE Stop: 01/05/22 17:40 Last Admin: 01/05/22 17:59 Dose: Not Given Documented By: TANIA Dextrose (Dextrose 50 % In Water 25 Gm/50 Ml Syringe) 25 gm IV NOW ONE Stop: 01/05/22 21:35 Guaifenesin (Guaifenesin Solution 100 Mg/5 Ml Udc) 100 mg PO NOW ONE Stop: 01/05/22 17:40 Last Admin: 01/05/22 17:50 Dose: 100 mg Documented By: TANIA Insulin Human Regular (Insulin Regular 100 Unit/Ml 3 Ml Vial) 10 unit IV NOW ONE Stop: 01/05/22 21:35 Vital Signs Vital signs: Vital Signs - 8 hr 01/05/22 16:38 01/05/22 16:54 01/05/22 16:56 Temperature 98.4 F Pulse Rate 86 100 H 83 Respiratory Rate 24 24 Blood Pressure 114/55 L Pulse Oximetry 89 L 91 89 L Oxygen Delivery Method Nasal Cannula Nasal Cannula Oxygen Flow Rate 3 3 01/05/22 16:56 01/05/22 17:00 01/05/22 17:00 Temperature Pulse Rate 80 Respiratory Rate 22 Blood Pressure 122/59 L 122/58 L Pulse Oximetry 91 Oxygen Delivery Method Nasal Cannula Oxygen Flow Rate 3 01/05/22 17:30 01/05/22 17:30 01/05/22 18:00 Temperature Pulse Rate 82 Respiratory Rate 21 Blood Pressure 140/60 135/64 Pulse Oximetry 95 Oxygen Delivery Method Oxygen Flow Rate 3 01/05/22 18:00 01/05/22 18:30 01/05/22 18:30 Temperature Pulse Rate 84 73 Respiratory Rate 22 18 Blood Pressure 116/55 L Pulse Oximetry 91 96 Oxygen Delivery Method Nasal Cannula Oxygen Flow Rate 3 3 01/05/22 19:00 Temperature Pulse Rate 78 Respiratory Rate 21 Blood Pressure Pulse Oximetry 95 Oxygen Delivery Method Oxygen Flow Rate <Jaime Armando DO - Last Filed: 01/05/22 22:03> Orders Ordered: ED Orders 01/05/22 17:37 XR chest 1V Stat 01/05/22 18:52 COVID19 -Nasal RAPID/Pre-Proc Stat 01/05/22 18:55 BNP [NT-proBNP (BNP-Adult 18+)] Stat CBC Auto Diff [Complete Blood Count AUTO DIFF] Stat CMP [Comprehensive Metabolic Panel] Stat Magnesium Stat Troponin & CK Cardiac Panel Stat 01/06/22 05:00 Basic Metabolic Panel Routine Complete Blood Count AUTO DIFF Routine Magnesium Routine Phosphorous Routine Acetaminophen (Acetaminophen 325 Mg Tablet) 650 mg PO Q6HR PRN PRN Reason: pain Dexamethasone (Dexamethasone 10 Mg/Ml Vial) 6 mg IV DAILY [facility] Furosemide (Furosemide 100 Mg/10 Ml Vial) 80 mg IV Q12H [facility] Heparin Sodium (Porcine) (Heparin 5,000 Unit/Ml Vial) 5,000 unit SUBCUT BID [facility] Azithromycin 500 mg/ Dextrose 250 mls @ 250 mls/hr IV Q24H [facility] Levothyroxine Sodium (Levothyroxine 75 Mcg Tablet) 75 mcg PO QACBREAK [facility] Naloxone HCl (Naloxone 0.4 Mg/Ml Vial) 0.2 mg IV Q2MIN PRN PRN Reason: Opiate Reversal Ondansetron HCl (Ondansetron 4 Mg/2 Ml Inj) 4 mg IV Q8HR PRN PRN Reason: Nausea And Vomiting Phenytoin Sodium (Phenytoin Er 100 Mg Capsule) 300 mg PO DAILY [facility] Phenytoin Sodium (Phenytoin Er 100 Mg Capsule) 200 mg PO BEDTIME [facility] Discontinued Medications Acetaminophen (Acetaminophen 325 Mg Tablet) 650 mg PO NOW ONE Stop: 01/05/22 17:40 Last Admin: 01/05/22 17:49 Dose: 650 mg Documented By: TANIA Benzocaine (Benzocaine/Menthol 1 Bere Pkt) 1 each PO NOW ONE Stop: 01/05/22 17:40 Last Admin: 01/05/22 17:59 Dose: Not Given Documented By: TANIA Dextrose (Dextrose 50 % In Water 25 Gm/50 Ml Syringe) 25 gm IV NOW ONE Stop: 01/05/22 21:35 Guaifenesin (Guaifenesin Solution 100 Mg/5 Ml Udc) 100 mg PO NOW ONE Stop: 01/05/22 17:40 Last Admin: 01/05/22 17:50 Dose: 100 mg Documented By: TANIA Insulin Human Regular (Insulin Regular 100 Unit/Ml 3 Ml Vial) 10 unit IV NOW ONE Stop: 01/05/22 21:35 Vital Signs Vital signs: Vital Signs - 8 hr 01/05/22 16:38 01/05/22 16:54 01/05/22 16:56 Temperature 98.4 F Pulse Rate 86 100 H 83 Respiratory Rate 24 24 Blood Pressure 114/55 L Pulse Oximetry 89 L 91 89 L Oxygen Delivery Method Nasal Cannula Nasal Cannula Oxygen Flow Rate 3 3 01/05/22 16:56 01/05/22 17:00 01/05/22 17:00 Temperature Pulse Rate 80 Respiratory Rate 22 Blood Pressure 122/59 L 122/58 L Pulse Oximetry 91 Oxygen Delivery Method Nasal Cannula Oxygen Flow Rate 3 01/05/22 17:30 01/05/22 17:30 01/05/22 18:00 Temperature Pulse Rate 82 Respiratory Rate 21 Blood Pressure 140/60 135/64 Pulse Oximetry 95 Oxygen Delivery Method Oxygen Flow Rate 3 01/05/22 18:00 01/05/22 18:30 01/05/22 18:30 Temperature Pulse Rate 84 73 Respiratory Rate 22 18 Blood Pressure 116/55 L Pulse Oximetry 91 96 Oxygen Delivery Method Nasal Cannula Oxygen Flow Rate 3 3 01/05/22 19:00 Temperature Pulse Rate 78 Respiratory Rate 21 Blood Pressure Pulse Oximetry 95 Oxygen Delivery Method Oxygen Flow Rate MDM - SOB/Dyspnea <Maria Esther Charles [facility] - Last Filed: 01/05/22 20:38> Lab Data Result diagrams: 01/05/22 18:55 01/05/22 18:55 Labs: Lab Results 01/05/22 01/05/22 01/05/22 Range/Units 18:52 18:55 18:55 WBC 2.9 L (4.5-11.0) X10^3/uL RBC 3.60 L (4.5-5.9) X10^6/uL Hgb 10.6 L (13.5-17.5) g/dL Hct 32.5 L (41-53) % MCV 90.3 (80-100) fL MCH 29.6 (26-34) PG MCHC 32.7 (30-36) % RDW 17.4 H (11.6-14.8) % Plt Count 168 (150-400) X10^3/uL Neut % (Auto) 70.9 (50-75) % Lymph % (Auto) 12.3 L (25-40) % [place] % (Auto) 16.2 H (3-14) % Eos % (Auto) 0.0 L (2-4) % Baso % (Auto) 0.6 (0-2) % Neut # (Auto) 2100 (2980-8841) /uL Lymph # (Auto) 400 L (2186-5481) /uL [place] # (Auto) 500 (0-900) /uL Eos # (Auto) 0 (0-450) /uL Baso # (Auto) 0 (0-100) /uL Sodium 133 L (137-145) mmol/L Potassium 5.7 H (3.4-5.1) mmol/L Chloride 110 H (98-107) mmol/L Carbon Dioxide 12 L (22-32) mmol/L BUN 49 H (9-20) mg/dL Creatinine 2.63 H (0.66-1.25) mg/dL Estimated GFR 23 L (>60) mL/min BUN/Creatinine Ratio 18.6 (6-22) Glucose 103 (80-110) mg/dL Calcium 7.8 L (8.4-10.2) mg/dL Magnesium 2.4 H (1.6-2.3) mg/dL Total Bilirubin 0.4 (0.2-1.3) mg/dL AST 25 (17-59) IU/L ALT 7 (<50) IU/L Alkaline Phosphatase 145 H (38-126) U/L Total Creatine Kinase 122 (55-170) U/L CK-MB (CK-2) 3.21 H (<2.37) ng/mL CK-MB (CK-2) Rel Index 2.6 (1.5-5.0) % Troponin I 0.078 H (0.01-0.034) ng/mL NT-Pro-B Natriuret Pep 4430 H (<450) pg/mL Total Protein 7.0 (6.3-8.2) g/dL Albumin 3.5 (3.5-5.0) g/dL Globulin 3.5 (1.7-4.1) g/dL Albumin/Globulin Ratio 1.0 (1.0-2.8) SARS-CoV-2 (PCR) Positive H (Negative) Imaging Data Chest x-ray: Radiologist's Impression: PROCEDURE:? XR CHEST 1V ? INDICATIONS:? covid +, cough, weakness ? TECHNIQUE:? One view of the chest was acquired.? ? COMPARISON:? [facility], CR, XR CHEST 2V, 01/03/2022, 17:33. ? FINDINGS:? ? Surgical changes and devices:? Left-sided dual-chamber pacemaker/defibrillator r emains unchanged.? Midline sternal wires present. ? Lungs and pleura:? Patchy bilateral pulmonary infiltrates are similar to the prior exam.? Pleural spaces are clear. ? Mediastinum:? Heart size pulmonary vascular normal. Atherosclerotic vascular calcification noted in the aortic arch. ? Bones and chest wall:? No suspicious bony lesions.? Overlying soft tissues appear unremarkable.? ? IMPRESSION:? ? Patchy bilateral pulmonary infiltrates, similar prior exam ? ? ? Approved by: Terrell Rosales M.D. on 01/05/2022 at 17:27? ECG Data Interpretation: EKG independently reviewed by myself and reveals normal sinus rhythm at 78 bpm with regular axis and intervals, right bundle-branch block. No STEMI, ST segment changes, arrhythmia, or acute ischemic changes. MDM Narrative Medical decision making narrative: This is an 86-year-old male who presents to the emergency department with COVID, two days after testing positive in the emergency department. He has a history of silicosis from sandblasting in his youth, ischemic cardiomyopathy, AICD, hyperlipidemia, CABG, CVA, CKD, history of MRSA, lymphoma, COPD, wears 3 L O2 at night at baseline. Patient was not treated with Paxlovid due to his seizure disorder on Dilantin. For the last two days, patient reports he has not been able to take his medications due to his throat. His lab work today is con cerning for potassium of 5.7, BUN of 49, creatinine of 2.63 above his baseline of 1.6, GFR 23 below his baseline 40, hyper magnesium 2.4 CK-MB of 3.21, troponin of 0.078, BNP of 4430. EKG shows normal sinus rhythm with a right bundle with a rate of 78 beats per minute, no ST changes, arrhythmia, or acute ischemic changes. Chest x-ray shows patchy bilateral pulmonary infiltrates similar to his prior exam on 01/03/2022. Breath sounds are diminished bilaterally in the lower lobes, patient is short of breath with any exertion, he has been on 3 L nasal cannula since arrived with O2 sats in the low to mid 90s. He normally only wears supplemental O2 at night. Discussing about code status with patient, he mentioned DNR but after discussing this at length in using a scenario, patient and his wish to be a full code at this time. Patient understands that this also means potential dialysis if his kidney function gets much worse or if it does not respond to diuresis. On exam, patient is nontoxic appearing although he does look quite ill, he is interactive, uses clear appropriate speech and is a good historian of his symptoms. Discussed patient's case with Dr. Judge who agrees to come and see the patient for admission. <Jaime Armando, DO - Last Filed: 01/05/22 22:03> Lab Data Labs: Lab Results 01/05/22 01/05/22 01/05/22 Range/Units 18:52 18:55 18:55 WBC 2.9 L (4.5-11.0) X10^3/uL RBC 3.60 L (4.5-5.9) X10^6/uL Hgb 10.6 L (13.5-17.5) g/dL Hct 32.5 L (41-53) % MCV 90.3 (80-100) fL MCH 29.6 (26-34) PG MCHC 32.7 (30-36) % RDW 17.4 H (11.6-14.8) % Plt Count 168 (150-400) X10^3/uL Neut % (Auto) 70.9 (50-75) % Lymph % (Auto) 12.3 L (25-40) % [place] % (Auto) 16.2 H (3-14) % Eos % (Auto) 0.0 L (2-4) % Baso % (Auto) 0.6 (0-2) % Neut # (Auto) 2100 (6748-1938) /uL Lymph # (Auto) 400 L (3305-8146) /uL [place] # (Auto) 500 (0-900) /uL Eos # (Auto) 0 (0-450) /uL Baso # (Auto) 0 (0-100) /uL Sodium 133 L (137-145) mmol/L Potassium 5.7 H (3.4-5.1) mmol/L Chloride 110 H (98-107) mmol/L Carbon Dioxide 12 L (22-32) mmol/L BUN 49 H (9-20) mg/dL Creatinine 2.63 H (0.66-1.25) mg/dL Estimated GFR 23 L (>60) mL/min BUN/Creatinine Ratio 18.6 (6-22) Glucose 103 (80-110) mg/dL Calcium 7.8 L (8.4-10.2) mg/dL Magnesium 2.4 H (1.6-2.3) mg/dL Total Bilirubin 0.4 (0.2-1.3) mg/dL AST 25 (17-59) IU/L ALT 7 (<50) IU/L Alkaline Phosphatase 145 H (38-126) U/L Total Creatine Kinase 122 (55-170) U/L CK-MB (CK-2) 3.21 H (<2.37) ng/mL CK-MB (CK-2) Rel Index 2.6 (1.5-5.0) % Troponin I 0.078 H (0.01-0.034) ng/mL NT-Pro-B Natriuret Pep 4430 H (<450) pg/mL Total Protein 7.0 (6.3-8.2) g/dL Albumin 3.5 (3.5-5.0) g/dL Globulin 3.5 (1.7-4.1) g/dL Albumin/Globulin Ratio 1.0 (1.0-2.8) SARS-CoV-2 (PCR) Positive H (Negative) Discharge Plan Departure Patient Disposition: Admitted As Inpatient Clinical Impression: COVID-19, Requires supplemental oxygen, Acute kidney injury superimposed on chronic kidney disease, Acute hyperkalemia, Hypermagnesemia, Congestive heart failure Leukopenia Qualifiers: Leukopenia type: unspecified Qualified Code(s): D72.819 - Decreased white blood cell count, unspecified Acute exacerbation of CHF (congestive heart failure) Qualifiers: Heart failure type: unspecified Qualified Code(s): I50.9 - Heart failure, unspecified Admit Date/Time: 01/05/22 20:56 Admit Provider: Abdon Judge <Jaime Armando DO - Last Filed: 01/05/22 22:03> Cosign ED Attending Cosignature Attestation: Dr Armando Co-Sign Statement: I was available for consultation during this patient's emergency department visit. This chart is signed by myself for administrative purposes only. I did not have direct contact with this patient during this visit. They were seen independently by the APC.
[2022-01-05 19:16] LABS: Add Manual Diff / Slide Review NO; Basophils Absolute Auto 0 /uL (0-100); Basophils Percent Auto 0.6 % (0-2); Eosinophils Absolute Auto 0 /uL (0-450); Hematocrit 32.5 % (41-53); Hemoglobin 10.6 g/dL (13.5-17.5); Lymphocytes Absolute Auto 400 /uL (1100-4500); Lymphocytes Percent Auto 12.3 % (25-40); Mean Corpuscular HGB Conc 32.7 % (30-36); Mean Corpuscular Hemoglobin 29.6 PG (26-34); Mean Corpuscular Volume 90.3 fL (80-100); Monocytes Absolute Auto 500 /uL (0-900); Monocytes Percent Auto 16.2 % (3-14); Neutrophils Absolute Auto 2100 /uL (1500-7000); Neutrophils Percent Auto 70.9 % (50-75); Platelet Count 168 X10^3/uL (150-400); Red Cell Distribution Width 17.4 % (11.6-14.8); White Blood Cell Count 2.9 X10^3/uL (4.5-11.0)
[2022-01-05 19:17] LABS: COVID19 -Nasal RAPID POSITIVE (Negative)
[2022-01-05 19:37] LABS: Alanine Aminotransferase 7 IU/L (<50); Albumin 3.5 g/dL (3.5-5.0); Alkaline Phosphatase 145 U/L (38-126); Aspartate Aminotransferase 25 IU/L (17-59); BUN Creatinine Ratio 18.6 (6-22); Bilirubin Total 0.4 mg/dL (0.2-1.3); Blood Urea Nitrogen 49 mg/dL (9-20); Calcium 7.8 mg/dL (8.4-10.2); Carbon Dioxide 12 mmol/L (22-32); Chloride 110 mmol/L (98-107); Creatine Kinase 122 U/L (55-170); Estimated Glomerular Filt Rate 23 mL/min (>60); Globulin 3.5 g/dL (1.7-4.1); Glucose 103 mg/dL (80-110); HEMOLYSIS < 15 (0-50); Magnesium 2.4 mg/dL (1.6-2.3); Sodium 133 mmol/L (137-145)
[2022-01-05 19:50] LABS: NT-proBNP (BNP-Adult 18+) 4430 pg/mL (<450); Troponin I 0.078 ng/mL (0.01-0.034)
[2022-01-05 19:52] LABS: CKMB % Relative Index 2.6 % (1.5-5.0); Creatine Kinase MB 3.21 ng/mL (<2.37)
[2022-01-05 19:53] LABS: Potassium 5.7 mmol/L (3.4-5.1)
[2022-01-05] MEDS: HEPARIN 5,000 UNIT/ML VIAL 5000 UNIT SUBCUT (22:16)
[2022-01-05] MEDS: DEXAMETHASONE 10 MG/ML VIAL 6 MG IV (22:16)
[2022-01-05] MEDS: FUROSEMIDE 100 MG/10 ML VIAL 80 MG IV (22:17)
[2022-01-05] MEDS: AZITHROMYCIN 500 MG in DEXTROSE 5% IN WATER 250 ML 250 MG IV (22:18)
--- NOTE | 2022-01-05 23:00 | PC.NURSE ---
Insulin and D50 (250mL D10) not given per Dr. Judge. Patient is on a fluid restriction, substitute for 10mL d50 is a 250mL bolus of D10. Holding administration pending new potassium draws.
--- NOTE | 2022-01-05 23:27 | PM.HP.1 ---
History of Present Illness History of Present Illness Date Patient Seen: 01/05/22 Time Patient Seen: 21:00 Chief complaint: SOB COVID+ Narrative: Mr. 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 He was unable to be treated with Paxlovid due to his Dilantin dosing at home.?He has cough, shortness of breath, weakness, and lack of appetite. His cough is not productive. He does not have chest pain, abdominal pain, and no fevers/chills. He states he has a sore throat and because of this has stopped taking all his medications for the last two days. He usually uses oxygen overnight only. He has known lymphoma with PET/CT last year concerning for mets in the lungs, and he is not on treatment for this. He has noted worsening swelling in his lower legs over the last few days. In the ED workup was done, vitals notable for normal temp, rr 24, sats of 89% on 3L. Labs notable for WBC 2.9, hgb 10.6. Na 133, K 5.7, co2 12, BUN 49, creatinine 2.63. Chest xray shows patchy bilateral pulmonary infiltrates. COVID was positive. He was ordered for dexamethasone, azithromycin and lasix and admitted for further treatment. Patient History Medical History Amyloidosis COPD with exacerbation CVA (cerebral vascular accident) Diastolic dysfunction Grand mal seizure History of pacemaker Hx of ulcer disease ILD (interstitial lung disease) Iron deficiency anemia Ischemic cardiomyopathy Lymphoma Myocardial infarction (2004) Pulmonary mass Secondary pulmonary arterial hypertension Silicosis Surgical History AICD (automatic cardioverter/defibrillator) present History of mitral valve repair (2006) Hx of cholecystectomy Hx of heart bypass surgery S/P CABG x 4 (2006) Family & Social History Social History: household members spouse,children,none Prior Living Arrangements Apartment/Condo Safety & Behavioral: Feels Safe in Current Yes Environment Been Physically Hurt or No Threatened By a Person Tobacco & Substance use: Smoking Status Former smoker alcohol intake current alcohol intake frequency holiday/special occasion Substance Use Type does not use Meds Home Medications and Allergies Home Medications Medication Instructions Recorded Confirmed Type acetaminophen 325 mg capsule 650 mg PO QID PRN pain #60 caps 11/17/20 01/05/22 Rx (Tylenol) lovastatin 40 mg tablet 40 mg PO BEDTIME #90 tabs 08/16/21 01/05/22 Rx sacubitril 24 mg-valsartan 26 mg 1 tab PO BID 09/15/21 01/05/22 History tablet (Entresto) phenytoin sodium extended 100 mg See Rx Instructions PO BID #450 09/21/21 01/05/22 Rx capsule (Dilantin Extended) caplets triamcinolone acetonide 0.1 % 1 applic topical BID PRN skin 11/12/21 01/05/22 Rx topical cream irritation, redness #80 grams spironolactone 25 mg tablet 50 mg PO BID #360 tabs 12/20/21 01/05/22 Rx benzonatate 100 mg capsule 100 mg PO TID PRN cough #20 caps 01/03/22 01/05/22 Rx bumetanide 2 mg tablet 2 mg PO BID 01/05/22 01/05/22 History Allergies Allergy/AdvReac Type Severity Reaction Status Date / Time Beta-Blockers Allergy Severe can't Verified 12/03/21 13:14 (Beta-Adrenergic Bloc breathe [BETA-BLOCKERS (BETA-ADRENERGIC BLOC] doxycycline [DOXYCYCLINE] Allergy Intermediate CHEST PAIN Verified 12/03/21 13:14 codeine [CODEINE] AdvReac Mild VERTIGO, Verified 12/03/21 13:14 GI UPSET Review of Systems Review of Systems Narrative: 14 systems reviewed and negative aside from what is noted in HPI Exam Vital Signs (past 8 hours): - 01/05/22 16:38 01/05/22 16:54 01/05/22 16:56 Temperature 98.4 F Pulse Rate 86 100 H 83 Respiratory Rate 24 24 Blood Pressure 114/55 L Pulse Oximetry 89 L 91 89 L Oxygen Delivery Method Nasal Cannula Nasal Cannula Oxygen Flow Rate 3 3 01/05/22 16:56 01/05/22 17:00 01/05/22 17:00 Temperature Pulse Rate 80 Respiratory Rate 22 Blood Pressure 122/59 L 122/58 L Pulse Oximetry 91 Oxygen Delivery Method Nasal Cannula Oxygen Flow Rate 3 01/05/22 17:30 01/05/22 17:30 01/05/22 18:00 Temperature Pulse Rate 82 Respiratory Rate 21 Blood Pressure 140/60 135/64 Pulse Oximetry 95 Oxygen Delivery Method Oxygen Flow Rate 3 01/05/22 18:00 01/05/22 18:30 01/05/22 18:30 Temperature Pulse Rate 84 73 Respiratory Rate 22 18 Blood Pressure 116/55 L Pulse Oximetry 91 96 Oxygen Delivery Method Nasal Cannula Oxygen Flow Rate 3 3 01/05/22 19:00 01/05/22 21:58 01/05/22 21:05 Temperature 97.9 F Pulse Rate 78 74 Respiratory Rate 21 20 Blood Pressure 124/65 Pulse Oximetry 95 91 Oxygen Delivery Method Nasal Cannula Oxygen Flow Rate Oxygen Delivery Method Nasal Cannula Oxygen Flow Rate 3 Narrative Exam Narrative: GEN: chronically ill appearing, noted respiratory distress HEENT: moist mucous membranes, PERRL NECK: trachea midline, no JVD CV: regular rate and rhythm, no murmurs PULM: coarse breath sounds and crackles bilaterally, unable to speak in full sentences ABD: soft, nontender, nondistended, no organomegaly EXT: warm and well perfused, 2+ pitting edema NEURO: awake, alert, no focal deficits Objective Labs Result Diagrams: 01/05/22 18:55 01/06/22 01:02 Labs: Laboratory Results - last 24 hr 01/05/22 01/05/22 01/05/22 18:52 18:55 18:55 WBC 2.9 L RBC 3.60 L Hgb 10.6 L Hct 32.5 L MCV 90.3 MCH 29.6 MCHC 32.7 RDW 17.4 H Plt Count 168 Neut % (Auto) 70.9 Lymph % (Auto) 12.3 L [place] % (Auto) 16.2 H Eos % (Auto) 0.0 L Baso % (Auto) 0.6 Neut # (Auto) 2100 Lymph # (Auto) 400 L [place] # (Auto) 500 Eos # (Auto) 0 Baso # (Auto) 0 Sodium 133 L Potassium 5.7 H Chloride 110 H Carbon Dioxide 12 L BUN 49 H Creatinine 2.63 H Estimated GFR 23 L BUN/Creatinine Ratio 18.6 Glucose 103 Calcium 7.8 L Magnesium 2.4 H Total Bilirubin 0.4 AST 25 ALT 7 Alkaline Phosphatase 145 H Total Creatine Kinase 122 CK-MB (CK-2) 3.21 H CK-MB (CK-2) Rel Index 2.6 Troponin I 0.078 H NT-Pro-B Natriuret Pep 4430 H Total Protein 7.0 Albumin 3.5 Globulin 3.5 Albumin/Globulin Ratio 1.0 SARS-CoV-2 (PCR) Positive H Assessment & Plan Assessment & Plan narrative: Mr. Eason is an 86M with PMH COPD, CHF, CAD, CKD, lymphoma, seizures, CVA who presents with weakness and worsening cough and shortness of breath. 1. Acute on chronic respiratory failure ---COVID pneumonia ---COPD with possible exacerbation ---CHFrEF with possible exacerbation -suspect symptoms are primarily caused by fluid overload from stopping medications and from COVID infection primarily, can not rule out COPD however -for now attempt to diuresed patient with 80IV lasix given renal dysfunction -low sodium diet, fluid restriction, and daily weight -has known depressed EF and followed closely by cardiology, do not think needs repeat echo currently as any exacerbation likely precipitated by stopping meds -will treat COVID infection with dexamethasone, no remdesivir given jerrell -ordered for nebs and azithromycin for possible COPD -patient with known lymphoma and previously has had lung imaging showing mets to lungs, which may be component of respiratory issue as well 2. JERRELL on CKD -hold entresto and spironolactone -monitor renal fucntion closely -check renal ultrasound -check urinalysis, and fena 3. Hyperkalemia -has had elevated potassium in the past -suspect could be related to spironolactone -other possible etiology is worsening renal failure, or possibly from cell turnover from lymphoma -recheck after lasix to see if potassium dropping from 5.7 -order low potassium diet -if potassium rising will need dextrose, insulin, calcium, and close monitoring for need for dialysis 4. CAD s/p CABG, severe MR, s/p AICD and pulmonary hypertension -asymptomatic -continue statin 5. Lymphoma -per onc diffuse large b-cell lymphoma, indolent -not currently on any treatment 7. Hypothyroid -continue synthroid 8. History of CVA -continue statin, does not appear to be on aspirin to due history of GI bleed 9. Seizure disorder -continue dilantin CODE: Full Proxy: Marci Eason, I have utilized all available resources to reconcile the patient's home medications. Time Spent With Patient Critical Care time: I spent a total of [] minutes of critical care time on this patient's care today; this time is exclusive of procedural time. Quality MIPS - Admit I confirm the patient?s Advance Care Plan is present, Code status is documented, Surrogate decision maker is in patient?s record [If Yes, STOP here]: Yes
[2022-01-06] VITALS (33 sets, daily range): BP systolic 117–139; BP diastolic 56–83; PULSE 85–108; RESP 15–35; TEMP 36.3–38.1; O2SAT 76–98
[2022-01-06 01:26] LABS: BUN Creatinine Ratio 18.5 (6-22); Blood Urea Nitrogen 50 mg/dL (9-20); Calcium 7.7 mg/dL (8.4-10.2); Carbon Dioxide 13 mmol/L (22-32); Chloride 111 mmol/L (98-107); Estimated Glomerular Filt Rate 23 mL/min (>60); Glucose 152 mg/dL (80-110); HEMOLYSIS < 15 (0-50); Sodium 135 mmol/L (137-145)
[2022-01-06 01:29] LABS: Potassium 5.6 mmol/L (3.4-5.1)
[2022-01-06] MEDS: ALBUTEROL/IPRATROPIUM 3 ML AMPUL INH (02:30)
--- NOTE | 2022-01-06 02:40 | PC.NURSE ---
RT contacted for breathing treatment. Patient removed care home through and didn't want it back on stating its not working.
[2022-01-06 05:46] LABS: Sodium Urine Random 77 mmol/L (30-90)
[2022-01-06 05:50] LABS: Creatinine Urine Random 59.4 mg/dL
[2022-01-06 06:45] LABS: Add Manual Diff / Slide Review NO; Basophils Absolute Auto 0 /uL (0-100); Basophils Percent Auto 0.4 % (0-2); Eosinophils Absolute Auto 0 /uL (0-450); Eosinophils Percent Auto 0.1 % (2-4); Hematocrit 34.6 % (41-53); Hemoglobin 11.1 g/dL (13.5-17.5); Lymphocytes Absolute Auto 200 /uL (1100-4500); Lymphocytes Percent Auto 3.5 % (25-40); Mean Corpuscular HGB Conc 32.2 % (30-36); Mean Corpuscular Hemoglobin 29.9 PG (26-34); Mean Corpuscular Volume 92.9 fL (80-100); Monocytes Absolute Auto 300 /uL (0-900); Monocytes Percent Auto 6.9 % (3-14); Neutrophils Absolute Auto 4200 /uL (1500-7000); Neutrophils Percent Auto 89.1 % (50-75); Platelet Count 198 X10^3/uL (150-400); Red Blood Cell Count 3.73 X10^6/uL (4.5-5.9); Red Cell Distribution Width 17.6 % (11.6-14.8); White Blood Cell Count 4.7 X10^3/uL (4.5-11.0)
[2022-01-06 06:57] LABS: BUN Creatinine Ratio 19.3 (6-22); Blood Urea Nitrogen 52 mg/dL (9-20); Calcium 7.9 mg/dL (8.4-10.2); Carbon Dioxide 12 mmol/L (22-32); Chloride 112 mmol/L (98-107); Estimated Glomerular Filt Rate 23 mL/min (>60); Glucose 154 mg/dL (80-110); HEMOLYSIS 18 (0-50); Magnesium 2.4 mg/dL (1.6-2.3); Phosphorous 5.2 mg/dL (2.3-3.7); Sodium 134 mmol/L (137-145)
[2022-01-06 07:03] LABS: Potassium 5.7 mmol/L (3.4-5.1)
--- NOTE | 2022-01-06 07:24 | P.PN_ITS ---
Exam Vital Signs (past 8 hours): - 01/06/22 00:00 01/06/22 02:30 01/06/22 04:00 Temperature 97.3 F L 98.1 F Pulse Rate 85 85 107 H Respiratory Rate 20 20 22 Blood Pressure 120/83 122/60 Pulse Oximetry 92 88 L 93 Oxygen Delivery Method Nasal Cannula Oxygen Flow Rate 3 Oxygen Delivery Method Nasal Cannula Oxygen Flow Rate 3 Narrative Exam Narrative: GEN: chronically ill appearing, noted respiratory distress HEENT: moist mucous membranes, PERRL NECK: trachea midline, no JVD CV: regular rate and rhythm, no murmurs PULM: coarse breath sounds and crackles bilaterally, unable to speak in full sentences ABD: soft, nontender, nondistended, no organomegaly EXT: warm and well perfused, 2+ pitting edema NEURO: awake, alert, no focal deficits Objective Labs Result Diagrams: 01/06/22 06:38 01/06/22 06:38 Labs: Laboratory Results - last 24 hr 01/05/22 01/05/22 01/05/22 18:52 18:55 18:55 WBC 2.9 L RBC 3.60 L Hgb 10.6 L Hct 32.5 L MCV 90.3 MCH 29.6 MCHC 32.7 RDW 17.4 H Plt Count 168 Neut % (Auto) 70.9 Lymph % (Auto) 12.3 L [place] % (Auto) 16.2 H Eos % (Auto) 0.0 L Baso % (Auto) 0.6 Neut # (Auto) 2100 Lymph # (Auto) 400 L [place] # (Auto) 500 Eos # (Auto) 0 Baso # (Auto) 0 Sodium 133 L Potassium 5.7 H Chloride 110 H Carbon Dioxide 12 L BUN 49 H Creatinine 2.63 H Estimated GFR 23 L BUN/Creatinine Ratio 18.6 Glucose 103 Calcium 7.8 L Phosphorus Magnesium 2.4 H Total Bilirubin 0.4 AST 25 ALT 7 Alkaline Phosphatase 145 H Total Creatine Kinase 122 CK-MB (CK-2) 3.21 H CK-MB (CK-2) Rel Index 2.6 Troponin I 0.078 H NT-Pro-B Natriuret Pep 4430 H Total Protein 7.0 Albumin 3.5 Globulin 3.5 Albumin/Globulin Ratio 1.0 Ur Random Sodium Urine Creatinine SARS-CoV-2 (PCR) Positive H 01/06/22 01/06/2201/06/22 01:02 05:15 05:15 WBC RBC Hgb Hct MCV MCH MCHC RDW Plt Count Neut % (Auto) Lymph % (Auto) [place] % (Auto) Eos % (Auto) Baso % (Auto) Neut # (Auto) Lymph # (Auto) [place] # (Auto) Eos # (Auto) Baso # (Auto) Sodium 135 L Potassium 5.6 H Chloride 111 H Carbon Dioxide 13 L BUN 50 H Creatinine 2.70 H Estimated GFR 23 L BUN/Creatinine Ratio 18.5 Glucose 152 H Calcium 7.7 L Phosphorus Magnesium Total Bilirubin AST ALT Alkaline Phosphatase Total Creatine Kinase CK-MB (CK-2) CK-MB (CK-2) Rel Index Troponin I NT-Pro-B Natriuret Pep Total Protein Albumin Globulin Albumin/Globulin Ratio Ur Random Sodium 77 Urine Creatinine 59.4 SARS-CoV-2 (PCR) 01/06/22 01/06/22 06:38 06:38 WBC 4.7 D RBC 3.73 L Hgb 11.1 L Hct 34.6 L MCV 92.9 MCH 29.9 MCHC 32.2 RDW 17.6 H Plt Count 198 Neut % (Auto) 89.1 H Lymph % (Auto) 3.5 L [place] % (Auto) 6.9 Eos % (Auto) 0.1 L Baso % (Auto) 0.4 Neut # (Auto) 4200 Lymph # (Auto) 200 L [place] # (Auto) 300 Eos # (Auto) 0 Baso # (Auto) 0 Sodium 134 L Potassium 5.7 H Chloride 112 H Carbon Dioxide 12 L BUN 52 H Creatinine 2.69 H Estimated GFR 23 L BUN/Creatinine Ratio 19.3 Glucose 154 H Calcium 7.9 L Phosphorus 5.2 H Magnesium 2.4 H Total Bilirubin AST ALT Alkaline Phosphatase Total Creatine Kinase CK-MB (CK-2) CK-MB (CK-2) Rel Index Troponin I NT-Pro-B Natriuret Pep Total Protein Albumin Globulin Albumin/Globulin Ratio Ur Random Sodium Urine Creatinine [facility]CoV-2 (PCR) [facility] History Amyloidosis COPD with exacerbation CVA (cerebral vascular accident) Diastolic dysfunction Grand mal seizure History of pacemaker Hx of ulcer disease ILD (interstitial lung disease) Iron deficiency anemia Ischemic cardiomyopathy Lymphoma Myocardial infarction (2004) Pulmonary mass Secondary pulmonary arterial hypertension Silicosis Surgical History AICD (automatic cardioverter/defibrillator) present History of mitral valve repair (2006) Hx of cholecystectomy Hx of heart bypass surgery S/P CABG x 4 (2006) Social History (Reviewed 01/05/22 @ 19:43 by Maria Esther Charles [facility]) marital status: unknown household members: spouse, children and none occupational status: previously employed Smoking Status: Former smoker Tobacco: How many years used: 35 alcohol intake: current substance use type: does not use Assessment & Plan Time Spent With Patient Critical Care time: I spent a total of [] minutes of critical care time on this patient's care today; this time is exclusive of procedural time.
[2022-01-06] MEDS: DEXAMETHASONE 10 MG/ML VIAL 6 MG IV (08:30)
[2022-01-06] MEDS: HEPARIN 5,000 UNIT/ML VIAL 5000 UNIT SUBCUT ×2 (08:31→20:22)
[2022-01-06] MEDS: FUROSEMIDE 100 MG/10 ML VIAL 80 MG IV ×2 (08:41→23:05)
[2022-01-06 09:33] LABS: HCO3 ABG 12 mmol/L (22-26); PCO2 ABG 32.9 mmHg (35-45); PO2 ABG 50 mmHg (80-100); TCO2 ABG 13 mmol/L (21-31); pH ABG 7.16 (7.35-7.45)
[2022-01-06 09:34] LABS: Fractionated Inspired Oxygen 40
--- NOTE | 2022-01-06 10:27 | PC.NURSE ---
RN went in to assess pt around 0900 today, pt was struggling to catch his breath, RT was called and came right in to work with pt and jennifer CBGs, pt was changed to HI-flow O2, provider was notified, pt was satting at low 80s on 4L, non productive cough, RN tried using suction, w/no results. Pt was running fever of 100.5, provider notified and provider ordered to hold Tylenol for now and to switch to IV Phenytoin 300mg and to start IV Ceftriaxone 1G Q24H along with current antibiotic, pt was to be moved to ICU and put on Bi-pap/Hi-Mark. Provider spoke with pt about possible intibation and pt requested to put on DNR status and not to be intibated. RN was in the room as well, pt alert and orientated x4. RN spoke with Pharmacy x3 to change phenytoin to IV ordered dose.
[2022-01-06] MEDS: cefTRIAXone 1,000 MG in SODIUM CHLORIDE 0.9% 100 ML 200 MG IV (10:41)
[2022-01-06] MEDS: FOSPHENYTOIN IV ×2 (12:04→20:23)
[2022-01-06] MEDS: SODIUM CHLORIDE 0.9% IV ×2 (12:04→20:23)
--- NOTE | 2022-01-06 12:35 | PC.RNWOUND ---
Patient attends changed of urine incontinence, turns to side with assist. Patient has notable bony prominences, high risk of skin breakdown. Gluteal skin is intact with blanchable erythema to the sacrum. Sacral dressing is applied for protection to this vulnerable area. Bilateral lower extremities with generalized edema, dry scaly skin to lower legs and feet where there is dried adherent crust noted to left lower leg abrasion. Plan is to utilize sacral dressing, barrier cream for protection of skin, moisturize lower extremities well, keeping elevated on pillows. Patient tolerates cares without complaint, clears own secretions with coughing.
--- NOTE | 2022-01-06 12:59 | CM.DANOTE ---
DCP: Case received, EMR reviewed. Have not been able to speak with patient at this time, and he is positive for COVID. Completed patient's DCP assessment based upon information currently available. Patient is an 86 year old male who admitted yesterday evening to the care of the hospitalist team. PCP: Dr. Arizmendi. Payer: confirmed: [employer]. Patient came to the hospital via private vehicle secondary to COVID symptoms which have not improved. Patient has history of sick sinus syndrome, ischemic cardiomyopathy, CVA, lymphoma. He uses home oxygen at 3 liters at night, according to notes. Patient also has a pacemaker and defibrillator. According to notes, patient tested positive for COVID on 01/03, and was unable to be treated with Paxlovid due to his Dilantin dosing at home. Notes also indicate that patient has been ill for the last 4-5 days with COVID symptoms, and his throat has been sore to the point that he can't swallow his pills. Patient holds diagnosis if acute on chronic respiratory failure, and COVID Pneumonia. He was just moved to the ICU due to deterioration of his condition. Attempted to call patient's room earlier before moving to ICU, but no answer. Have not yet reached out to spouse until permission is obtained from patient to do so. Patient does reside here in [place] with his spouse, Marci. At this time, is unclear as to patient's baseline activity level. According to SCHOOL CHILD CARE ATTENDANT, patient is weak. He is currently laying in bed, and is awake. P: DCP to continue to monitor closely. Patient is currently not medically stable. DC needs at this time are unclear, but if he does need rehab, the barrier will be his COVID. Tara Elmore RN/Heel Seam [employer]ber Discharge Planning/Care Management CM Discharge Assessment Start: 01/06/22 12:56 Freq: Status: Active Protocol: Document 01/06/22 12:57 (Rec: 01/06/22 12:59 [id number]) Discharge Planning Assessment Assigned Knitting Machine Operator Helper Tara Elmore RN/Heel Se[employer]ber Advance Directives? No History Provided By Patient,Medical Record Prior Living Arrangements Apartment/Condo Household Members spouse,children,none Type of transporation used prior to Relies on Others admit Independent with ADL's Unknown at this time Is patient alert and oriented? Yes Caregiver for Another No DME Already Rented / Owned FWW / Walker,Cane Comment Have not yet been able to speak to patient or spouse regarding patient's baseline activity status. Comment Weakness, patient is positive for COVID, and if he needs prison services, will be a barrier. Discharge Plan Home Transportation Arrangement Family Referrals Initiated Other Additional Comment Patient is currently not medically stable, and now in ICU. Will see how patient does while here in the hospital to determine needs. Whiteboard Updated in Patient Room with No name and ext. # of Knitting Machine Operator Helper Comment Patient is COVID positive. Review Status In Process Next Review Type Continued Stay Review
--- NOTE | 2022-01-06 14:11 | PC.NURSE ---
1315 - Pt called on the phone. Assisted patient with the phone. Pt fatigued following conversation. Mildly tearful. Follow this call, pt [id number] Vika called, want to speak to patient and asking about visiting. She was frustrated with visiting policy. Discussed the option of face time, but encouraged her to let patient rest and recover from prior call with Fatou. Pt inc of urine, able to void some in urinal. Brief changed and reposition. SOB with miinimal exertion, moist, non-productive cough. Call light in reach.
--- NOTE | 2022-01-06 14:54 | PM.PN.1 ---
Subjective Subjective Interval history: pt is fully awake, alert and oriented x3, he is c/o dry mouth and weakness, mentation as baseline Exam Vital Signs (past 8 hours): - 01/06/22 08:05 01/06/22 10:21 01/06/22 09:30 Temperature 100.5 F H Pulse Rate 105 H 108 H Respiratory Rate 24 20 Blood Pressure 118/67 118/67 Pulse Oximetry 90 L 96 88 L Oxygen Delivery Method Nasal Cannula Oxygen Flow Rate 4 4 Fraction of Inspired Oxygen 01/06/22 11:42 01/06/22 12:00 01/06/22 13:30 Temperature 98.6 F Pulse Rate 93 H 87 Respiratory Rate 19 20 Blood Pressure 119/76 117/59 L Pulse Oximetry 98 96 Oxygen Delivery Method Heated High Flow Oxygen Flow Rate 45 Fraction of Inspired Oxygen 65 Fraction of Inspired Oxygen 65 Oxygen Delivery Method Heated High Flow Oxygen Flow Rate 45 Const General: cooperative and well developed Orientation: alert, awake and oriented x3 HENMT Head: normal to inspection Ears: external ears normal Mouth: oral mucosae normal Eyes Pupils: PERRL EOM: EOM intact bilaterally Neck Neck: normal visual inspection and full ROM Resp Auscultation: diminished lung sounds and wheezes Cardio Rate: regular rate Rhythm: regular rhythm GI Palpation: soft and no hepatosplenomegaly Auscultation: normal bowel sounds Skin General: no rashes or lesions noted Neuro General: patient alert, patient awake, patient oriented x3, moves all extremities and no focal motor deficits Speech: speech normal Extrem General: normal to inspection, full ROM and no pedal edema Psych Appearance: grossly normal Objective Labs Result Diagrams: 01/06/22 06:38 01/06/22 06:38 Labs: Laboratory Results - last 24 hr 01/05/22 01/05/22 01/05/22 18:52 18:55 18:55 WBC 2.9 L RBC 3.60 L Hgb 10.6 L Hct 32.5 L MCV 90.3 MCH 29.6 MCHC 32.7 RDW 17.4 H Plt Count 168 Neut % (Auto) 70.9 Lymph % (Auto) 12.3 L [place] % (Auto) 16.2 H Eos % (Auto) 0.0 L Baso % (Auto) 0.6 Neut # (Auto) 2100 Lymph # (Auto) 400 L [place] # (Auto) 500 Eos # (Auto) 0 Baso # (Auto) 0 ABG pH ABG pCO2 ABG pO2 ABG HCO3 ABG Total CO2 ABG O2 Saturation ABG Base Excess FiO2 Sodium 133 L Potassium 5.7 H Chloride 110 H Carbon Dioxide 12 L BUN 49 H Creatinine 2.63 H Estimated GFR 23 L BUN/Creatinine Ratio 18.6 Glucose 103 Calcium 7.8 L Phosphorus Magnesium 2.4 H Total Bilirubin 0.4 AST 25 ALT 7 Alkaline Phosphatase 145 H Total Creatine Kinase 122 CK-MB (CK-2) 3.21 H CK-MB (CK-2) Rel Index 2.6 Troponin I 0.078 H NT-Pro-B Natriuret Pep 4430 H Total Protein 7.0 Albumin 3.5 Globulin 3.5 Albumin/Globulin Ratio 1.0 Ur Random Sodium Urine Creatinine SARS-CoV-2 (PCR) Positive H 01/06/22 01/06/22 01/06/22 01:02 05:15 05:15 WBC RBC Hgb Hct MCV MCH MCHC RDW Plt Count Neut % (Auto) Lymph % (Auto) [place] % (Auto) Eos % (Auto) Baso % (Auto) Neut # (Auto) Lymph # (Auto) [place] # (Auto) Eos # (Auto) Baso # (Auto) ABG pH ABG pCO2 ABG pO2 ABG HCO3 ABG Total CO2 ABG O2 Saturation ABG Base Excess FiO2 Sodium 135 L Potassium 5.6 H Chloride 111 H Carbon Dioxide 13 L BUN 50 H Creatinine 2.70 H Estimated GFR 23 L BUN/Creatinine Ratio 18.5 Glucose 152 H Calcium 7.7 L Phosphorus Magnesium Total Bilirubin AST ALT Alkaline Phosphatase Total Creatine Kinase CK-MB (CK-2) CK-MB (CK-2) Rel Index Troponin I NT-Pro-B Natriuret Pep Total Protein Albumin Globulin Albumin/Globulin Ratio Ur Random Sodium 77 Urine Creatinine 59.4 SARS-CoV-2 (PCR) 01/06/22 01/06/22 01/06/22 06:38 06:38 09:15 WBC 4.7 D RBC 3.73 L Hgb 11.1 L Hct 34.6 L MCV 92.9 MCH 29.9 MCHC 32.2 RDW 17.6 H Plt Count 198 Neut % (Auto) 89.1 H Lymph % (Auto) 3.5 L [place] % (Auto) 6.9 Eos % (Auto) 0.1 L Baso % (Auto) 0.4 Neut # (Auto) 4200 Lymph # (Auto) 200 L [place] # (Auto) 300 Eos # (Auto) 0 Baso # (Auto) 0 ABG pH 7.16 L* ABG pCO2 32.9 L ABG pO2 50 L ABG HCO3 12 L ABG Total CO2 13 L ABG O2 Saturation 75 L* ABG Base Excess -17.0 L FiO2 40 Sodium 134 L Potassium 5.7 H Chloride 112 H Carbon Dioxide 12 L BUN 52 H Creatinine 2.69 H Estimated GFR 23 L BUN/Creatinine Ratio 19.3 Glucose 154 H Calcium 7.9 L Phosphorus 5.2 H Magnesium 2.4 H Total Bilirubin AST ALT Alkaline Phosphatase Total Creatine Kinase CK-MB (CK-2) CK-MB (CK-2) Rel Index Troponin I NT-Pro-B Natriuret Pep Total Protein Albumin Globulin Albumin/Globulin Ratio Ur Random Sodium Urine Creatinine SARS-CoV-2 (PCR) PFSH Medical History Amyloidosis COPD with exacerbation CVA (cerebral vascular accident) Diastolic dysfunction Grand mal seizure History of pacemaker Hx of ulcer disease ILD (interstitial lung disease) Iron deficiency anemia Ischemic cardiomyopathy Lymphoma Myocardial infarction (2004) Pulmonary mass Secondary pulmonary arterial hypertension Silicosis Surgical History AICD (automatic cardioverter/defibrillator) present History of mitral valve repair (2006) Hx of cholecystectomy Hx of heart bypass surgery S/P CABG x 4 (2006) Social History marital status: unknown household members: spouse, children and none occupational status: previously employed Smoking Status: Former smoker Tobacco: How many years used: 35 alcohol intake: current substance use type: does not use Assessment & Plan Assessment & Plan narrative: Acute hypoxic respiratory failure likely multifactorial _ - CHF and COPD exacerbation and COVID pneumonia ( of note, pt is fully vaccinated and boosted) and now with COVID infection his ABG worsened , pt has been changing hsi code status and placed him on BIPAP - continue BIPAP - repeat ABG - continue abx JERRELL CKD stage 3 cr 2.63 - vs 1.8 in 12/28/21 got worse due to to non-compliance with meds? 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
[2022-01-06] MEDS: ACETAMINOPHEN 650 MG SUPP PR (16:25)
[2022-01-06] MEDS: MORPHINE 4 MG/ML INJ (18:19)
[2022-01-06 18:34] LABS: BUN Creatinine Ratio 24.6 (6-22); Blood Urea Nitrogen 31 mg/dL (9-20); Calcium 8.7 mg/dL (8.4-10.2); Carbon Dioxide 21 mmol/L (22-32); Chloride 103 mmol/L (98-107); Estimated Glomerular Filt Rate 56 mL/min (>60); Glucose 110 mg/dL (80-110); HEMOLYSIS < 15 (0-50); Potassium 4.3 mmol/L (3.4-5.1); Sodium 133 mmol/L (137-145)
--- NOTE | 2022-01-06 19:43 | PM.CN.EICU ---
History of Present Illness Consult details If camera was activated, add TeleICU A-V Statement: established connecton camera used to assess patient Chief complaint: SOB COVID+ PFSH Medical History Amyloidosis COPD with exacerbation CVA (cerebral vascular accident) Diastolic dysfunction Grand mal seizure History of pacemaker Hx of ulcer disease ILD (interstitial lung disease) Iron deficiency anemia Ischemic cardiomyopathy Lymphoma Myocardial infarction (2004) Pulmonary mass Secondary pulmonary arterial hypertension Silicosis Surgical History AICD (automatic cardioverter/defibrillator) present History of mitral valve repair (2006) Hx of cholecystectomy Hx of heart bypass surgery S/P CABG x 4 (2006) Social History marital status: unknown household members: spouse, children and none occupational status: previously employed Smoking Status: Former smoker Tobacco: How many years used: 35 alcohol intake: current substance use type: does not use Current Medications Current Medications Medications: Home Medications acetaminophen 325 mg capsule (Tylenol) 650 mg PO QID PRN pain #60 caps 11/17/20 [Rx Confirmed 01/05/22] lovastatin 40 mg tablet 40 mg PO BEDTIME #90 tabs 08/16/21 [Rx Confirmed 01/05/22] sacubitril 24 mg-valsartan 26 mg tablet (Entresto) 1 tab PO BID 09/15/21 [History Confirmed 01/05/22] phenytoin sodium extended 100 mg capsule (Dilantin Extended) See Rx Instructions PO BID #450 caplets 09/21/21 [Rx Confirmed 01/05/22] triamcinolone acetonide 0.1 % topical cream 1 applic topical BID PRN skin irritation, redness #80 grams 11/12/21 [Rx Confirmed 01/05/22] spironolactone 25 mg tablet 50 mg PO BID #360 tabs 12/20/21 [Rx Confirmed 01/05/22] benzonatate 100 mg capsule 100 mg PO TID PRN cough #20 caps 01/03/22 [Rx Confirmed 01/05/22] bumetanide 2 mg tablet 2 mg PO BID 01/05/22 [History Confirmed 01/05/22] Visit Medications (administered) Generic Name Dose Route Start Last Admin Trade Name Freq PRN Reason Stop Dose Admin Acetaminophen 650 mg 01/06/22 10:46 01/06/22 16:25 Acetaminophen 650 Mg Supp [place] 650 mg Q6HR PRN Administration pain Albuterol/Ipratropium 3 ml 01/05/22 23:40 01/06/22 02:30 Albuterol/Ipratropium 3 Ml Ampul INH 3 ml [id number] PRN Administration Shortness Of Breath Dexamethasone 6 mg 01/05/22 21:34 01/06/22 08:30 Dexamethasone 10 Mg/Ml Vial IV 6 mg DAILY MAGDA Administration Furosemide 80 mg 01/05/22 21:34 01/06/22 08:41 Furosemide 100 Mg/10 Ml Vial IV 80 mg Q12H MAGDA Administration Heparin Sodium (Porcine) 5,000 unit 01/05/22 21:34 01/06/22 08:31 Heparin 5,000 Unit/Ml Vial SUBCUT 5,000 unit BID MAGDA Administration Azithromycin 500 mg/ Dextrose 250 mls @ 250 mls/hr 01/05/22 22:00 01/06/22 12:02 IV Infused Q24H MAGDA Infusion Ceftriaxone Sodium 1,000 mg/ 100 mls @ 200 mls/hr 01/06/22 10:00 01/06/22 12:04 Sodium Chloride IV Infused Q24H MAGDA Infusion Fosphenytoin Sodium 300 mg/ 106 mls @ 212 mls/hr 01/06/22 11:00 01/06/22 18:51 Sodium Chloride IV Infused DAILY MAGDA Infusion Levothyroxine Sodium 75 mcg 01/06/22 07:00 01/06/22 06:27 Levothyroxine 75 Mcg Tablet PO Not Given [facility] Exam Vital Signs (past 8 hours): - 01/06/22 12:00 01/06/22 13:30 01/06/22 12:00 Temperature Pulse Rate 87 Respiratory Rate 20 Blood Pressure 117/59 L 117/59 L Pulse Oximetry 96 Oxygen Delivery Method Heated High Flow Oxygen Flow Rate 01/06/22 12:00 01/06/22 12:30 01/06/22 13:00 Temperature Pulse Rate 102 H 101 H 92 H Respiratory Rate 28 H 31 H 25 H Blood Pressure Pulse Oximetry 76 L 89 L 95 Oxygen Delivery Method Oxygen Flow Rate 01/06/22 13:30 01/06/22 14:00 01/06/22 14:30 Temperature Pulse Rate 91 H 90 95 H Respiratory Rate 28 H 20 23 Blood Pressure Pulse Oximetry 97 91 96 Oxygen Delivery Method Oxygen Flow Rate 01/06/22 15:00 01/06/22 16:00 01/06/22 16:00 Temperature Pulse Rate 92 H Respiratory Rate 27 H Blood Pressure Pulse Oximetry 96 97 Oxygen Delivery Method Heated High Flow Heated High Flow Oxygen Flow Rate 45 01/06/22 15:30 01/06/22 16:00 01/06/22 16:22 Temperature Pulse Rate 96 H 95 H Respiratory Rate 28 H 28 H Blood Pressure 122/58 L Pulse Oximetry 89 L 91 Oxygen Delivery Method Oxygen Flow Rate 01/06/22 16:22 01/06/22 16:30 01/06/22 16:45 Temperature 97.9 F Pulse Rate 98 H 103 H 99 H Respiratory Rate 28 H 35 H 29 H Blood Pressure 122/58 L Pulse Oximetry 94 89 L 92 Oxygen Delivery Method Oxygen Flow Rate 45 01/06/22 17:30 Temperature Pulse Rate 88 Respiratory Rate 24 Blood Pressure 122/56 L Pulse Oximetry 96 Oxygen Delivery Method Oxygen Flow Rate Fraction of Inspired Oxygen 65 Oxygen Delivery Method Heated High Flow Oxygen Flow Rate 45 Objective Labs Result Diagrams: 01/06/22 06:38 01/06/22 17:50 Labs: Laboratory Results - last 24 hr 01/05/22 01/06/22 01/06/22 18:55 01:02 05:15 WBC RBC Hgb Hct MCV MCH MCHC RDW Plt Count Neut % (Auto) Lymph % (Auto) [place] % (Auto) Eos % (Auto) Baso % (Auto) Neut # (Auto) Lymph # (Auto) [place] # (Auto) Eos # (Auto) Baso # (Auto) ABG pH ABG pCO2 ABG pO2 ABG HCO3 ABG Total CO2 ABG O2 Saturation ABG Base Excess FiO2 Sodium 133 L 135 L Potassium 5.7 H 5.6 H Chloride 110 H 111 H Carbon Dioxide 12 L 13 L BUN 49 H 50 H Creatinine 2.63 H 2.70 H Estimated GFR 23 L 23 L BUN/Creatinine Ratio 18.6 18.5 Glucose 103 152 H Calcium 7.8 L 7.7 L Phosphorus Magnesium 2.4 H Total Bilirubin 0.4 AST 25 ALT 7 Alkaline Phosphatase 145 H Total Creatine Kinase 122 CK-MB (CK-2) 3.21 H CK-MB (CK-2) Rel Index 2.6 Troponin I 0.078 H NT-Pro-B Natriuret Pep 4430 H Total Protein 7.0 Albumin 3.5 Globulin 3.5 Albumin/Globulin Ratio 1.0 Ur Random Sodium 77 Urine Creatinine 01/06/22 01/06/22 01/06/22 05:15 06:38 06:38 WBC 4.7 D RBC 3.73 L Hgb 11.1 L Hct 34.6 L MCV 92.9 MCH 29.9 MCHC 32.2 RDW 17.6 H Plt Count 198 Neut % (Auto) 89.1 H Lymph % (Auto) 3.5 L [place] % (Auto) 6.9 Eos % (Auto) 0.1 L Baso % (Auto) 0.4 Neut # (Auto) 4200 Lymph # (Auto) 200 L [place] # (Auto) 300 Eos # (Auto) 0 Baso # (Auto) 0 ABG pH ABG pCO2 ABG pO2 ABG HCO3 ABG Total CO2 ABG O2 Saturation ABG Base Excess FiO2 Sodium 134 L Potassium 5.7 H Chloride 112 H Carbon Dioxide 12 L BUN 52 H Creatinine 2.69 H Estimated GFR 23 L BUN/Creatinine Ratio 19.3 Glucose 154 H Calcium 7.9 L Phosphorus 5.2 H Magnesium 2.4 H Total Bilirubin AST ALT Alkaline Phosphatase Total Creatine Kinase CK-MB (CK-2) CK-MB (CK-2) Rel Index Troponin I NT-Pro-B Natriuret Pep Total Protein Albumin Globulin Albumin/Globulin Ratio Ur Random Sodium Urine Creatinine 59.4 01/06/22 01/06/22 09:15 17:50 WBC RBC Hgb Hct MCV MCH MCHC RDW Plt Count Neut % (Auto) Lymph % (Auto) [place] % (Auto) Eos % (Auto) Baso % (Auto) Neut # (Auto) Lymph # (Auto) [place] # (Auto) Eos # (Auto) Baso # (Auto) ABG pH 7.16 L* ABG pCO2 32.9 L ABG pO2 50 L ABG HCO3 12 L ABG Total CO2 13 L ABG O2 Saturation 75 L* ABG Base Excess -17.0 L FiO2 40 Sodium 133 L Potassium 4.3 D Chloride 103 Carbon Dioxide 21 L BUN 31 H Creatinine 1.26 H Estimated GFR 56 L BUN/Creatinine Ratio 24.6 H Glucose 110 Calcium 8.7 Phosphorus Magnesium Total Bilirubin AST ALT Alkaline Phosphatase Total Creatine Kinase CK-MB (CK-2) CK-MB (CK-2) Rel Index Troponin I NT-Pro-B Natriuret Pep Total Protein Albumin Globulin Albumin/Globulin Ratio Ur Random Sodium Urine Creatinine Assessment & Plan Assessment & Plan narrative: ?patient seen with bedside nurse chart/labs/imaging reviewed 86 year old male with PMHx lymphoma, seizure, CVA admitted ot ICU with acute resp failure acute renal failure Covid PNA HAGMA hyperkalemia suggest -repeat labs/abg -bipap as needed, keep pH above 7.25 pa02 above 55 -steroids, no remdesevir -hedrick cx -abx -bicarb drip/pushes if acidosis persistent, may need HD however overall condtion would advise against invasive procedures -diuretics as tolerated, miller placed, creat improving -keep glucose 140-180s -hyperK resolved, will monitor -replace lyte prn -monitor ins/outs -gi/dvt ppx -goals of care and severity of illness should be address with family, suggest hospice eval -please call eICU prn CODE status:DNR discussed at length with Dr. Judge Time Spent With Patient Critical Care time: I spent a total of [] minutes of critical care time on this patient's care today; this time is exclusive of procedural time.
[2022-01-06] MEDS: MORPHINE 2 MG/ML INJ IV ×2 (20:22→23:06)
[2022-01-06] MEDS: SODIUM CHLORIDE 0.9% FLUSH 10 ML IV (20:22)
[2022-01-06 20:28] LABS: Fractionated Inspired Oxygen 65; HCO3 ABG 14 mmol/L (22-26); Oxygen Saturation ABG 90 % (95-100); PCO2 ABG 37.2 mmHg (35-45); PO2 ABG 73 mmHg (80-100); TCO2 ABG 15 mmol/L (21-31)
[2022-01-06 20:49] LABS: pH ABG 7.18 (7.35-7.45)
[2022-01-06 21:31] LABS: Appearance Urine UA CLEAR; Bilirubin Urine UA NEGATIVE (NEGATIVE); Color Urine UA YELLOW; Glucose Urine UA NEGATIVE (Negative); Ketones Urine UA NEGATIVE (NEGATIVE); Leukocyte Esterase Urine UA NEGATIVE (NEGATIVE); Nitrite Urine UA NEGATIVE (Negative); Occult Blood Urine UA 2+ (Negative); Protein Urine UA 2+ (Negative); Urobilinogen Urine UA 0.2 E.U./dL (0.2)
[2022-01-06] MEDS: AZITHROMYCIN 500 MG in DEXTROSE 5% IN WATER 250 ML 250 MG IV (21:32)
[2022-01-06 21:56] LABS: Bacteria Urine None Seen; Culture Indicated Urine Cult Not Indicated; RBC Urine 0-1/HPF (0-5/HPF); WBC Urine None Seen (0-5/HPF)
[2022-01-06] MEDS: SODIUM BICARB 8.4% VIAL 100 MEQ in DEXTROSE 5% WATER 1,000 ML 150 MEQ IV (22:21)
--- NOTE | 2022-01-06 22:30 | RT ---
Pt trialed on BiPAP as ordered per Dr. Judge. Upon initiating BiPAP @ 10/5 w/ 100% FiO2 , pt immediately showed discomfort and yelled/moaned and when RT asked pt if this was too much, pt said yes Pt was then taken off BiPAP mask and transitioned back to HFNC w/ 100% FiO2 due to SpO2 dropping into low 80%. Pt's SpO2 recovered within 5 minutes of placing back on HFNC and is now at 65% FiO2 w/ SpO2 94%. Bedside RN is aware and RT will continue to monitor.
[2022-01-07] VITALS (49 sets, daily range): BP systolic 110–136; BP diastolic 56–65; PULSE 78–101; RESP 15–41; TEMP 36.4–37.9; O2SAT 89–100
[2022-01-07 01:05] LABS: Fractionated Inspired Oxygen 65; HCO3 ABG 16 mmol/L (22-26); Oxygen Saturation ABG 83 % (95-100); PCO2 ABG 42.9 mmHg (35-45); PO2 ABG 60 mmHg (80-100); TCO2 ABG 17 mmol/L (21-31)
[2022-01-07 01:06] LABS: pH ABG 7.18 (7.35-7.45)
--- NOTE | 2022-01-07 01:09 | PM.EVENT ---
Event Note Date Patient Seen: 01/07/22 Time Patient Seen: 01:00 Event Note (Rapid Response, Code, or fall): Patient was seen with worsening hypoxemia. He had been started on heated high flow earlier in the day and transferred to ICU and his ABG was found to have acidosis. He was trialed on bipap but did not tolerate keeping it on. He was restarted on lasix and miller placed to monitor output. He is on ceftriaxone and azithromycin for pneumonia, sputum culture ordered. He has not diuresed briskly to lasix at this point. His renal function has been poor. At baseline he does have COPD, CHF, lymphoma with pulmonary involvement, silicosis. He also has pulmonary fluid and COVID. His prognosis is very poor and he is likely not improving due to his multiple comorbidities and depressed immune system. Have discussed with family his poor prognosis, he is a DNR/DNI, he would be appropriate for comfort care, but family wants to continue with current management.
--- NOTE | 2022-01-07 01:29 | PM.EICU.INT ---
Teleintensivist Intervention Date/Time Was camera activated?: No Issue(s) Addressed Issue(s): Abnormal labs Intervention(s) :: patient with worsening acidosis despite bicarb gtt. his serum bicarb seems o have imrved, but based on latest abg, might have dropped again. patient remains dnr/i, though his breathing is labored, and he could not tolerate nippv. Will give bicarb push, and continue to follow the ABG Plan discussed with: Nurse
[2022-01-07] MEDS: SODIUM BICARB 8.4% SYRINGE 100 MEQ IV (02:15)
[2022-01-07 05:20] LABS: Add Manual Diff / Slide Review NO; Basophils Absolute Auto 0 /uL (0-100); Basophils Percent Auto 0.1 % (0-2); Carbon Dioxide 20 mmol/L (22-32); Chloride 109 mmol/L (98-107); Eosinophils Absolute Auto 0 /uL (0-450); Hemoglobin 10.4 g/dL (13.5-17.5); Lymphocytes Absolute Auto 200 /uL (1100-4500); Lymphocytes Percent Auto 4.6 % (25-40); Mean Corpuscular HGB Conc 33.6 % (30-36); Mean Corpuscular Hemoglobin 29.7 PG (26-34); Mean Corpuscular Volume 88.5 fL (80-100); Monocytes Absolute Auto 400 /uL (0-900); Monocytes Percent Auto 8.4 % (3-14); Neutrophils Absolute Auto 3700 /uL (1500-7000); Neutrophils Percent Auto 86.9 % (50-75); Platelet Count 191 X10^3/uL (150-400); Sodium 137 mmol/L (137-145); White Blood Cell Count 4.3 X10^3/uL (4.5-11.0)
[2022-01-07 05:21] LABS: BUN Creatinine Ratio 23.8 (6-22); Blood Urea Nitrogen 54 mg/dL (9-20); Calcium 7.2 mg/dL (8.4-10.2); Estimated Glomerular Filt Rate 28 mL/min (>60); Glucose 233 mg/dL (80-110); HEMOLYSIS < 15 (0-50)
--- NOTE | 2022-01-07 06:09 | PC.NURSE ---
Qa Lead Note-Patient remains on HHFNC 45L, FIO2 65% until 0130, then increased to 85% d/t desatting and increased tachypnea. Menezes catheter placed for accurate I/Os, UAC sent. Sodium bicarbinate infusion started, 100meq IVP at 0230 as ordered. 80mg IV Lasix BID restarted, UOP 725ml clear yellow plus moderate incontinence prior to Menezes placement. 2mg IV morphine given for dyspnea, moaning, and FLACC 6-7, but patient became confused and agitated, continuously attempting to take HHF cannula off, morphine was was discontinued. Bi-pap was attempted at 2230, patient did not tolerate. These events were discussed with family who brought a music recorder in for patient's comfort, needs to be cleared by engineering.
[2022-01-07 06:27] LABS: Magnesium 2.1 mg/dL (1.6-2.3)
[2022-01-07] MEDS: SODIUM CHLORIDE 0.9% IV ×2 (10:10→20:42)
[2022-01-07] MEDS: cefTRIAXone 1,000 MG in SODIUM CHLORIDE 0.9% 100 ML 200 MG IV (10:10)
[2022-01-07] MEDS: FOSPHENYTOIN IV ×2 (10:10→20:42)
[2022-01-07] MEDS: DEXAMETHASONE 10 MG/ML VIAL 6 MG IV (10:11)
[2022-01-07] MEDS: HEPARIN 5,000 UNIT/ML VIAL 5000 UNIT SUBCUT ×2 (10:11→20:42)
[2022-01-07] MEDS: SODIUM CHLORIDE 0.9% FLUSH 10 ML IV ×2 (10:12→20:43)
--- NOTE | 2022-01-07 10:14 | P.TELICUPN_ITS ---
Subjective Subjective If camera was activated, add TeleICU A-V statement: camera used with bedside nurse and inside room Interval history: worsening mental status and resp status overnight acidosis persists Current Medications Current Medications Medications: Home Medications acetaminophen 325 mg capsule (Tylenol) 650 mg PO QID PRN pain #60 caps 11/17/20 [Rx Confirmed 01/05/22] lovastatin 40 mg tablet 40 mg PO BEDTIME #90 tabs 08/16/21 [Rx Confirmed 01/05/22] sacubitril 24 mg-valsartan 26 mg tablet (Entresto) 1 tab PO BID 09/15/21 [History Confirmed 01/05/22] phenytoin sodium extended 100 mg capsule (Dilantin Extended) See Rx Instructions PO BID #450 caplets 09/21/21 [Rx Confirmed 01/05/22] triamcinolone acetonide 0.1 % topical cream 1 applic topical BID PRN skin irritation, redness #80 grams 11/12/21 [Rx Confirmed 01/05/22] spironolactone 25 mg tablet 50 mg PO BID #360 tabs 12/20/21 [Rx Confirmed 01/05/22] benzonatate 100 mg capsule 100 mg PO TID PRN cough #20 caps 01/03/22 [Rx Confirmed 01/05/22] bumetanide 2 mg tablet 2 mg PO BID 01/05/22 [History Confirmed 01/05/22] Visit Medications (administered) Generic Name Dose Route Start Last Admin Trade Name Freq PRN Reason Stop Dose Admin Acetaminophen 650 mg 01/06/22 10:46 01/06/22 16:25 Acetaminophen 650 Mg Supp [place] 650 mg Q6HR PRN Administration pain Albuterol/Ipratropium 3 ml 01/05/22 23:40 01/06/22 02:30 Albuterol/Ipratropium 3 Ml Ampul INH 3 ml [id number] PRN Administration Shortness Of Breath Atorvastatin Calcium 10 mg 01/06/22 21:00 01/06/22 20:59 Atorvastatin 20 Mg Tablet PO Not Given BEDTIME MAGDA Dexamethasone 6 mg 01/05/22 21:34 01/07/22 10:11 Dexamethasone 10 Mg/Ml Vial IV 6 mg DAILY MAGDA Administration Furosemide 80 mg 01/05/22 21:34 01/06/22 23:05 Furosemide 100 Mg/10 Ml Vial IV 80 mg Q12H MAGDA Administration Heparin Sodium (Porcine) 5,000 unit 01/05/22 21:34 01/07/22 10:11 Heparin 5,000 Unit/Ml Vial SUBCUT 5,000 unit BID MAGDA Administration Azithromycin 500 mg/ Dextrose 250 mls @ 250 mls/hr 01/05/22 22:00 01/06/22 22 :42 IV Infused Q24H MAGDA Infusion Ceftriaxone Sodium 1,000 mg/ 100 mls @ 200 mls/hr 01/06/22 10:00 01/07/22 10:10 Sodium Chloride IV 200 mls/hr Q24H MAGDA Administration Fosphenytoin Sodium 300 mg/ 106 mls @ 212 mls/hr 01/06/22 11:00 01/07/22 10:10 Sodium Chloride IV 212 mls/hr DAILY MAGDA Administration Fosphenytoin Sodium 200 mg/ 104 mls @ 208 mls/hr 01/06/22 21:00 01/06/22 22:41 Sodium Chloride IV Infused BEDTIME MAGDA Infusion Sodium Bicarbonate 100 meq/ 1,100 mls @ 150 mls/hr 01/06/22 21:15 01/07/22 06:37 Dextrose IV Infused CONT MAGDA Infusion Levothyroxine Sodium 75 mcg 01/06/22 07:00 01/07/22 06:34 Levothyroxine 75 Mcg Tablet PO Not Given QACBREAK MAGDA Sodium Chloride 10 ml 01/06/22 21:00 01/07/22 10:12 Sodium Chloride 0.9% Flush IV 10 ml BID MAGDA Administration Objective Labs Result Diagrams: 01/07/22 04:48 01/07/22 04:48 Labs: Laboratory Results - last 24 hr 01/06/22 01/06/22 01/06/22 17:50 20:17 20:45 WBC RBC Hgb Hct MCV MCH MCHC RDW Plt Count Neut % (Auto) Lymph % (Auto) [place] % (Auto) Eos % (Auto) Baso % (Auto) Neut # (Auto) Lymph # (Auto) [place] # (Auto) Eos # (Auto) Baso # (Auto) ABG pH 7.18 L* ABG pCO2 37.2 ABG pO2 73 L ABG HCO3 14 L ABG Total CO2 15 L ABG O2 Saturation 90 L ABG Base Excess -14.0 L FiO2 65 Sodium 133 L Potassium 4.3 D Chloride 103 Carbon Dioxide 21 L BUN 31 H Creatinine 1.26 H Estimated GFR 56 L BUN/Creatinine Ratio 24.6 H Glucose 110 Calcium 8.7 Magnesium Urine Color Yellow Urine Appearance Clear Urine pH 5.0 Ur Specific [place] 1.020 Urine Protein 2+ H Urine Glucose (UA) Negative Urine Ketones Negative Urine Occult Blood 2+ H Urine Nitrate Negative Urine Bilirubin Negative Urine Urobilinogen 0.2 Ur Leukocyte Esterase Negative Urine RBC 0-1/hpf Urine WBC None seen Urine Bacteria None seen Ur Culture Indicated? Cult not indicated Nasal Screen MRSA (PCR) 01/06/22 01/07/22 01/07/22 21:25 00:52 04:48 WBC RBC Hgb Hct MCV MCH MCHC RDW Plt Count Neut % (Auto) Lymph % (Auto) [place] % (Auto) Eos % (Auto) Baso % (Auto) Neut # (Auto) Lymph # (Auto) [place] # (Auto) Eos # (Auto) Baso # (Auto) ABG pH 7.18 L* ABG pCO2 42.9 ABG pO2 60 L ABG HCO3 16 L ABG Total CO2 17 L ABG O2 Saturation 83 L* ABG Base Excess -12.0 L FiO2 65 Sodium 137 Potassium 5.0 Chloride 109 H Carbon Dioxide 20 L BUN 54 H Creatinine 2.27 H Estimated GFR 28 L BUN/Creatinine Ratio 23.8 H Glucose 233 H D Calcium 7.2 L Magnesium Urine Color Urine Appearance Urine pH Ur Specific [place] Urine Protein Urine Glucose (UA) Urine Ketones Urine Occult Blood Urine Nitrate Urine Bilirubin Urine Urobilinogen Ur Leukocyte Esterase Urine RBC Urine WBC Urine Bacteria Ur Culture Indicated? Nasal Screen MRSA (PCR) Negative for mrsa 01/07/22 01/07/22 04:48 04:48 WBC 4.3 L RBC 3.50 L Hgb 10.4 L Hct 31.0 L MCV 88.5 D MCH 29.7 MCHC 33.6 RDW 17.0 H Plt Count 191 Neut % (Auto) 86.9 H Lymph % (Auto) 4.6 L [place] % (Auto) 8.4 Eos % (Auto) 0.0 L Baso % (Auto) 0.1 Neut # (Auto) 3700 Lymph # (Auto) 200 L [place] # (Auto) 400 Eos # (Auto) 0 Baso # (Auto) 0 ABG pH ABG pCO2 ABG pO2 ABG HCO3 ABG Total CO2 ABG O2 Saturation ABG Base Excess FiO2 Sodium Potassium Chloride Carbon Dioxide BUN Creatinine Estimated GFR BUN/Creatinine Ratio Glucose Calcium Magnesium 2.1 Urine Color Urine Appearance Urine pH Ur Specific [place] Urine Protein Urine Glucose (UA) Urine Ketones Urine Occult Blood Urine Nitrate Urine Bilirubin Urine Urobilinogen Ur Leukocyte Esterase Urine RBC Urine WBC Urine Bacteria Ur Culture Indicated? Nasal Screen MRSA (PCR) Exam Vital Signs (past 8 hours): - 01/07/22 02:30 01/07/22 03:00 01/07/22 04:01 Temperature Pulse Rate 100 H 101 H 86 Respiratory Rate 24 27 H 16 Blood Pressure 120/59 L Pulse Oximetry 95 96 96 Oxygen Delivery Method Oxygen Flow Rate 01/07/22 03:30 01/07/22 04:00 01/07/22 04:00 Temperature Pulse Rate 92 H 88 Respiratory Rate 16 16 Blood Pressure 116/56 L Pulse Oximetry 97 97 Oxygen Delivery Method Oxygen Flow Rate 01/07/22 05:00 01/07/22 04:30 01/07/22 05:00 Temperature Pulse Rate 87 95 H Respiratory Rate 16 22 Blood Pressure Pulse Oximetry 97 96 Oxygen Delivery Method Heated High Flow Oxygen Flow Rate 01/07/22 05:30 01/07/22 06:00 01/07/22 06:30 Temperature Pulse Rate 98 H 98 H 100 H Respiratory Rate 28 H 27 H 24 Blood Pressure Pulse Oximetry 94 94 91 Oxygen Delivery Method Oxygen Flow Rate 01/07/22 07:00 01/07/22 07:00 01/07/22 07:30 Temperature 100.2 F H Pulse Rate 99 H 100 H Respiratory Rate 21 24 Blood Pressure Pulse Oximetry 91 100 93 Oxygen Delivery Method Heated High Flow Oxygen Flow Rate 45 01/07/22 08:00 01/07/22 08:00 01/07/22 08:30 Temperature Pulse Rate 96 H 96 H Respiratory Rate 20 23 Blood Pressure 133/60 Pulse Oximetry 94 92 Oxygen Delivery Method Oxygen Flow Rate 01/07/22 09:00 01/07/22 09:46 Temperature Pulse Rate 95 H 89 Respiratory Rate 23 18 Blood Pressure 133/60 Pulse Oximetry 93 95 Oxygen Delivery Method Oxygen Flow Rate Fraction of Inspired Oxygen 65 Oxygen Delivery Method Heated High Flow Oxygen Flow Rate 45 Assessment & Plan Assessment & Plan narrative: ?patient seen with bedside nurse chart/labs/imaging reviewed 86 year old male with PMHx lymphoma, seizure, CVA admitted ot ICU with acute resp failure acute renal failure Covid PNA HAGMA hyperkalemia minimal urineoutput increase fi02 requiremnts suggest -persistent mixed acidosi pH 7.1, would need intubation however pt is dnr/dni -continue steroids -bipap if pt can tolerated -bicarb drip, no more diuresis, 2 amps push now -keep glucose 140-180s -replace lyte prn -monitor ins/outs -gi/dvt ppx -goals of care and severity of illness should be addresed with famaily today, pt condition is declining, poor overall prognosis suggest hospice eval -please call eICU prn CODE status:DNR Time Spent With Patient Critical Care time: I spent a total of [] minutes of critical care time on this patient's care today; this time is exclusive of procedural time.
[2022-01-07] MEDS: SODIUM BICARB 8.4% VIAL 100 MEQ in DEXTROSE 5% WATER 1,000 ML 150 MEQ IV (11:00)
--- NOTE | 2022-01-07 11:40 | DIET.CONS ---
Dietary Consultation Note Admission Date: 01/05/2022 20:56 Assessment: 86y M admitted for covid+ status c increased work of breathing referred to nutrition for high risk of malnutrition. 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 Per wound care nurse, pt with notable bony prominences, high risk wound formation. Pt reports not eating well or being able to take medicines x4d prior to admit secondary to sore throat. Pt has not eaten well since admit. Pt renal fxn prior to covid eGFR 40-50, Cr 1.3-1.6, currently eGFR 23-28, Cr 2.2-2.7. Chart review shows weight stability until a week ago, UBW 70kg x2y, now with 8% unintentional weight loss in 1w (severe). Pt on low sodium, fluid restricted diet. Pt clinically shows signs of needing intubation as pt not tolerating bipap, however, pt desires no intubation. Awaiting POC. Ht: 172.72 cm Wt: 64.5 kg BMI: 21.6 UBW: 70kg Last BM: 01/02/22 (01/05/22 22:01) MNA: 9 [place] Score: 14 Diet: 01/05/22 Breakfast Fluid Restriction Diet Diet Modifications: Total fluid amount: 1,500 Amount allotted to patient trays: 0 Free water included in total: No Fluid in addition to trays: 1713-9357 amount: 1,000 2682-2574 amount: 500 Low Sodium Diet (2gm) Diet Modifications: Nutrition Percent Meal Consumed 0% 01/07/22 09:00 Labs: RBC 3.50 X10^6/uL (4.5-5.9) L 01/07/22 04:48 Hgb 10.4 g/dL (13.5-17.5) L 01/07/22 04:48 Hct 31.0 % (41-53) L 01/07/22 04:48 Creatinine 2.27 mg/dL (0.66-1.25) H 01/07/22 04:48 NT-Pro-B Natriuret Pep 4430 pg/mL (<450) H 01/05/22 18:55 Nutrition Diagnosis: Acute Severe Protein Calorie Malnutrition r/t difficulty eating in context of Covid PNA aeb 8% unintentional weight loss in 1w, pt reports sore throat with no PO meds or nourishment x4d since diagnosis of covid, wound nurse reports pt high risk skin breakdown secondary to bony prominences, MNA 8, [place] 14, altered renal fxn. Interventions: 1. Recc Ensure Enlive bid delivered to nurse station as fluid allowed to support nutrition repletion. Protein support limited by pts renal fxn. EER: 1900kcals (30kcal/kg per PCM), 55g PRO (per renal fxn) Monitoring/Evaluations: POC Electronically Signed by: Martha Szymanski 01/07/22 11:40 Clinical Dietitian [address] [id number]
--- NOTE | 2022-01-07 13:29 | CM.DPC ---
DCP Cont: Patient has declined, BIPAP attempted for patient, but has become agitated. According to hospitalist, family continues to want treatment for patient, but he is DNR/DNI. Asked about the possibility of visiting, and goals of care conversation. Spouse has continued to be updated about condition. At this time, patient is sleeping, not yet on comfort care, but could be pursued further with hospitalist. P: DCP to continue to follow. Will attempt to get update from patient's nurse today. Tara Elmore RN/Canoe Inspector Final
[2022-01-07] MEDS: diphenhydrAMINE 50 MG/ML VIAL 25 MG IV (13:31)
--- NOTE | 2022-01-07 14:33 | PC.NURSE ---
Addendum entered by Daxa Soler R.N. 01/07/22 18:59: Asked for orders for comfort, Hospitalist aware, no new orders rec'd. Addendum entered by Daxa Soler R.N. 01/07/22 18:55: 1700-Update to family, remains tearful during conversation, Just make him get better, there has to be something else you can do Continue to update with poor proginosis, Pt has been less responsive this evening, but able to rest peacefully, with less removing of o2. Bicarb infusing, changed to FA/wrist site, d/t occlusion. Addendum entered by Daxa Soler R.N. 01/07/22 15:19: Call to family regarding goals of care, Daughter in law appears to have a grasp about what the guarded prognosis is. After lengthy discussion with , it appears that this is still not an accepted outcome. Tearfully, requests we play his music and remind him that He needs to get home wishes to try speaker phone conversation later in shift. Pt has been more agitated this afternoon, attempting to remove HHNC, with extended recovery time with spo2 >88% Appears to have significant frustration with staff when O2 is replaced. Repositioned. NPO for poor swallow safety. Original Note: AM shift Pt is quiet this am, minimally responsive, yes and no questions. HHFNC 85% Fio2 45L Pt is open mouth breathing, RR are even and labored at times. Lungs are poor and rhonchorous. Menezes patient.
--- NOTE | 2022-01-07 15:20 | P.PN_ITS ---
Subjective Subjective Interval history: pt mentation changed, he is agitated not oriented Exam Vital Signs (past 8 hours): - 01/07/22 07:30 01/07/22 08:00 01/07/22 08:00 Pulse Rate 100 H 96 H Respiratory Rate 24 20 Blood Pressure 133/60 Pulse Oximetry 93 94 Oxygen Flow Rate Fraction of Inspired Oxygen 01/07/22 08:30 01/07/22 09:00 01/07/22 09:46 Pulse Rate 96 H 95 H 89 Respiratory Rate 23 23 18 Blood Pressure 133/60 Pulse Oximetry 92 93 95 Oxygen Flow Rate Fraction of Inspired Oxygen 01/07/22 11:38 01/07/22 09:30 01/07/22 10:00 Pulse Rate 86 98 H 91 H Respiratory Rate 19 41 H 18 Blood Pressure 133/60 Pulse Oximetry 93 92 94 Oxygen Flow Rate Fraction of Inspired Oxygen 01/07/22 10:30 01/07/22 11:00 01/07/22 11:30 Pulse Rate 94 H 89 88 Respiratory Rate 20 19 17 Blood Pressure Pulse Oximetry 93 93 94 Oxygen Flow Rate Fraction of Inspired Oxygen 01/07/22 12:00 01/07/22 12:00 01/07/22 12:30 Pulse Rate 85 93 H Respiratory Rate 18 26 H Blood Pressure 110/56 L Pulse Oximetry 93 91 Oxygen Flow Rate Fraction of Inspired Oxygen 01/07/22 13:00 01/07/22 13:30 01/07/22 14:24 Pulse Rate 89 88 78 Respiratory Rate 23 19 20 Blood Pressure 110/56 L Pulse Oximetry 90 L 94 94 Oxygen Flow Rate Fraction of Inspired Oxygen 01/07/22 13:00 Pulse Rate Respiratory Rate Blood Pressure 110/56 L Pulse Oximetry 93 Oxygen Flow Rate 45 Fraction of Inspired Oxygen 85 Fraction of Inspired Oxygen 85 Oxygen Delivery Method Heated High Flow Oxygen Flow Rate 45 Const Orientation: awake and confused [facility] Head: normal to inspection Ears: external ears normal Mouth: oral mucosae normal Eyes Pupils: PERRL EOM: EOM intact bilaterally Neck Neck: normal visual inspection and full ROM Resp Effort & Inspection: normal respiratory effort Auscultation: clear to auscultation bilaterally Cardio Rate: regular rate Rhythm: regular rhythm GI Palpation: soft and no hepatosplenomegaly Auscultation: normal bowel sounds Skin General: no rashes or lesions noted Neuro General: patient alert, patient awake, patient oriented x3, moves all extremities and no focal motor deficits Speech: speech normal Extrem General: normal to inspection, full ROM and no pedal edema Psych Appearance: grossly normal Objective Labs Result Diagrams: 01/07/22 04:48 01/07/22 04:48 Labs: Laboratory Results - last 24 hr 01/06/22 01/06/22 01/06/22 17:50 20:17 20:45 WBC RBC Hgb Hct MCV MCH MCHC RDW Plt Count Neut % (Auto) Lymph % (Auto) [place] % (Auto) Eos % (Auto) Baso % (Auto) Neut # (Auto) Lymph # (Auto) [place] # (Auto) Eos # (Auto) Baso # (Auto) ABG pH 7.18 L* ABG pCO2 37.2 ABG pO2 73 L ABG HCO3 14 L ABG Total CO2 15 L ABG O2 Saturation 90 L ABG Base Excess -14.0 L FiO2 65 Sodium 133 L Potassium 4.3 D Chloride 103 Carbon Dioxide 21 L BUN 31 H Creatinine 1.26 H Estimated GFR 56 L BUN/Creatinine Ratio 24.6 H Glucose 110 Calcium 8.7 Magnesium Urine Color Yellow Urine Appearance Clear Urine pH 5.0 Ur Specific [place] 1.020 Urine Protein 2+ H Urine Glucose (UA) Negative Urine Ketones Negative Urine Occult Blood 2+ H Urine Nitrate Negative Urine Bilirubin Negative Urine Urobilinogen 0.2 Ur Leukocyte Esterase Negative Urine RBC 0-1/hpf Urine WBC None seen Urine Bacteria None seen Ur Culture Indicated? Cult not indicated Nasal Screen MRSA (PCR) 01/06/22 01/07/22 01/07/22 21:25 00:52 04:48 WBC RBC Hgb Hct MCV MCH MCHC RDW Plt Count Neut % (Auto) Lymph % (Auto) [place] % (Auto) Eos % (Auto) Baso % (Auto) Neut # (Auto) Lymph # (Auto) [place] # (Auto) Eos # (Auto) Baso # (Auto) ABG pH 7.18 L* ABG pCO2 42.9 ABG pO2 60 L ABG HCO3 16 L ABG Total CO2 17 L ABG O2 Saturation 83 L* ABG Base Excess -12.0 L FiO2 65 Sodium 137 Potassium 5.0 Chloride 109 H Carbon Dioxide 20 L BUN 54 H Creatinine 2.27 H Estimated GFR 28 L BUN/Creatinine Ratio 23.8 H Glucose 233 H D Calcium 7.2 L Magnesium Urine Color Urine Appearance Urine pH Ur Specific [place] Urine Protein Urine Glucose (UA) Urine Ketones Urine Occult Blood Urine Nitrate Urine Bilirubin Urine Urobilinogen Ur Leukocyte Esterase Urine RBC Urine WBC Urine Bacteria Ur Culture Indicated? Nasal Screen MRSA (PCR) Negative for mrsa 01/07/22 01/07/22 04:48 04:48 WBC 4.3 L RBC 3.50 L Hgb 10.4 L Hct 31.0 L MCV 88.5 D MCH 29.7 MCHC 33.6 RDW 17.0 H Plt Count 191 Neut % (Auto) 86.9 H Lymph % (Auto) 4.6 L [place] % (Auto) 8.4 Eos % (Auto) 0.0 L Baso % (Auto) 0.1 Neut # (Auto) 3700 Lymph # (Auto) 200 L [place] # (Auto) 400 Eos # (Auto) 0 Baso # (Auto) 0 ABG pH ABG pCO2 ABG pO2 ABG HCO3 ABG Total CO2 ABG O2 Saturation ABG Base Excess FiO2 Sodium Potassium Chloride Carbon Dioxide BUN Creatinine Estimated GFR BUN/Creatinine Ratio Glucose Calcium Magnesium 2.1 Urine Color Urine Appearance Urine pH Ur Specific [place] Urine Protein Urine Glucose (UA) Urine Ketones Urine Occult Blood Urine Nitrate Urine Bilirubin Urine Urobilinogen Ur Leukocyte Esterase Urine RBC Urine WBC Urine Bacteria Ur Culture Indicated? Nasal Screen MRSA (PCR) [facility] Medical History Amyloidosis COPD with exacerbation CVA (cerebral vascular accident) Diastolic dysfunction Grand mal seizure History of pacemaker Hx of ulcer disease ILD (interstitial lung disease) Iron deficiency anemia Ischemic cardiomyopathy Lymphoma Myocardial infarction (2004) Pulmonary mass Secondary pulmonary arterial hypertension Silicosis Surgical History AICD (automatic cardioverter/defibrillator) present History of mitral valve repair (2006) Hx of cholecystectomy Hx of heart bypass surgery S/P CABG x 4 (2006) Social History marital status: unknown household members: spouse, children and none occupational status: previously employed Smoking Status: Former smoker Tobacco: How many years used: 35 alcohol intake: current substance use type: does not use Assessment & Plan Assessment & Plan narrative: Acute hypoxic respiratory failure secondary to lung mets, COVID infection, etc worse, pt on high flow O2 - continue abx - continue high flow O2 JERRELL CKD stage 3 cr 2.27 vs 2.7 - avoid nephrotoxics - continue diuresis -BMP in AM ?CAD ( s/p CABG, s/p AICD) -continue telemetry monitoring ? Hyperkalemia -improved Hyperlipidemia -continue statin H/O B-cell? Lymphoma -not on treatment Hypothyroidism -continue synthroid H/O CVA - telemetry monitoring - continue statin ?H/O Seizure disorder -continue dilantin CODE status:DNR family updated Time Spent With Patient Critical Care time: I spent a total of [] minutes of critical care time on this patient's care today; this time is exclusive of procedural time.
[2022-01-07] MEDS: FUROSEMIDE 100 MG/10 ML VIAL 80 MG IV (20:43)
--- NOTE | 2022-01-07 21:04 | PM.ICURNDS ---
- :: This patient was seen via real time interactive two-way audiovisual telecommunication. patient remains criticall ill on high fio2. lethargic today with periods of severe tachypenia. remains on bicarb gtt. family still has not reached any decions on GOC. will add dilaudid for air hunger
[2022-01-07] MEDS: AZITHROMYCIN 500 MG in DEXTROSE 5% IN WATER 250 ML 250 MG IV (21:32)
[2022-01-07] MEDS: HYDROMORPHONE 0.5 MG INJ IV (21:32)
[2022-01-08] VITALS (9 sets, daily range): BP systolic 112–126; BP diastolic 55–87; PULSE 83–98; RESP 14–27; TEMP 36.2–38.1; O2SAT 92–95; BMI 21.1
[2022-01-08] MEDS: HYDROMORPHONE 0.5 MG INJ IV ×5 (00:53→15:32)
[2022-01-08 04:55] LABS: Add Manual Diff / Slide Review NO; Basophils Absolute Auto 0 /uL (0-100); Basophils Percent Auto 0.4 % (0-2); Eosinophils Absolute Auto 0 /uL (0-450); Hematocrit 32.4 % (41-53); Hemoglobin 10.7 g/dL (13.5-17.5); Lymphocytes Absolute Auto 300 /uL (1100-4500); Lymphocytes Percent Auto 6.7 % (25-40); Mean Corpuscular HGB Conc 32.9 % (30-36); Mean Corpuscular Hemoglobin 29.4 PG (26-34); Mean Corpuscular Volume 89.3 fL (80-100); Monocytes Absolute Auto 400 /uL (0-900); Monocytes Percent Auto 8.7 % (3-14); Neutrophils Absolute Auto 4100 /uL (1500-7000); Neutrophils Percent Auto 84.2 % (50-75); Platelet Count 194 X10^3/uL (150-400); Red Blood Cell Count 3.62 X10^6/uL (4.5-5.9); Red Cell Distribution Width 17.2 % (11.6-14.8); White Blood Cell Count 4.8 X10^3/uL (4.5-11.0)
[2022-01-08 05:06] LABS: BUN Creatinine Ratio 28.7 (6-22); Blood Urea Nitrogen 52 mg/dL (9-20); Calcium 7.4 mg/dL (8.4-10.2); Carbon Dioxide 26 mmol/L (22-32); Chloride 108 mmol/L (98-107); Estimated Glomerular Filt Rate 36 mL/min (>60); Glucose 144 mg/dL (80-110); HEMOLYSIS < 15 (0-50); Potassium 4.8 mmol/L (3.4-5.1); Sodium 143 mmol/L (137-145)
--- NOTE | 2022-01-08 06:42 | PC.NURSE ---
Medical Insurance Coder Note-Patient was restless and easily agitated at beginning of shift. Nodded that he did have pain but unable speak d/t dyspnea, RR >30 at times, desats to <80%, LS coarse rhonchi throughout, unable to cough, HHF increased to 95%/50L. Updated Dr Vick who ordered IV Dilaudid prn which was effective, patient was able to rest comfortably most of the night with his music playing on/off. Received sodium bicarb, scheduled abx, and other IV meds, see EMAR. Total UOP 1175ml. Family updated about patient status and poor prognosis. states that she understands that we would like to get him home
[2022-01-08] MEDS: SODIUM CHLORIDE 0.9% IV ×2 (08:10→22:01)
[2022-01-08] MEDS: cefTRIAXone 1,000 MG in SODIUM CHLORIDE 0.9% 100 ML 200 MG IV (08:10)
[2022-01-08] MEDS: FOSPHENYTOIN IV ×2 (08:10→22:01)
[2022-01-08] MEDS: FUROSEMIDE 100 MG/10 ML VIAL 80 MG IV ×2 (08:11→22:01)
[2022-01-08] MEDS: HEPARIN 5,000 UNIT/ML VIAL 5000 UNIT SUBCUT (08:12)
[2022-01-08] MEDS: DEXAMETHASONE 10 MG/ML VIAL 6 MG IV (08:12)
[2022-01-08] MEDS: SODIUM CHLORIDE 0.9% FLUSH 10 ML IV ×2 (08:12→22:01)
--- NOTE | 2022-01-08 11:23 | PM.PN.1 ---
Subjective Subjective Interval history: pt is awake, in mild distress as agitated a bit Exam Vital Signs (past 8 hours): - 01/08/22 03:32 01/08/22 04:00 01/08/22 04:30 Temperature Pulse Rate 94 H Respiratory Rate Blood Pressure Pulse Oximetry 94 94 Oxygen Delivery Method Heated High Flow Oximask Heated High Flow Oxygen Flow Rate 50 Fraction of Inspired Oxygen 01/08/22 04:00 01/08/22 06:59 01/08/22 07:00 Temperature 98.3 F Pulse Rate 87 86 Respiratory Rate 27 H 14 Blood Pressure 119/59 L 119/59 L Pulse Oximetry 95 94 94 Oxygen Delivery Method High Flow Nasal Cannula Oxygen Flow Rate 50 50 Fraction of Inspired Oxygen 100 100 01/08/22 08:00 01/08/22 09:36 01/08/22 08:00 Temperature 100.6 F H Pulse Rate 98 H 84 Respiratory Rate 18 14 Blood Pressure 126/83 126/83 Pulse Oximetry 93 94 Oxygen Delivery Method Heated High Flow Oxygen Flow Rate 50 Fraction of Inspired Oxygen 95 Fraction of Inspired Oxygen 95 Oxygen Delivery Method Heated High Flow Oxygen Flow Rate 50 Const Orientation: awake and confused HENMT Head: normal to inspection Ears: external ears normal Mouth: oral mucosae normal Eyes Pupils: PERRL EOM: EOM intact bilaterally Neck Neck: normal visual inspection and full ROM Resp Effort & Inspection: normal respiratory effort Auscultation: clear to auscultation bilaterally Cardio Rate: regular rate Rhythm: regular rhythm GI Palpation: soft and no hepatosplenomegaly Auscultation: normal bowel sounds Skin General: no rashes or lesions noted Neuro General: patient alert, patient awake, patient oriented x3, moves all extremities and no focal motor deficits Speech: speech normal Extrem General: normal to inspection, full ROM and no pedal edema Psych Appearance: grossly normal Objective Labs Result Diagrams: 01/08/22 04:45 01/08/22 04:45 Labs: Laboratory Results - last 24 hr 01/08/22 01/08/22 04:45 04:45 WBC 4.8 RBC 3.62 L Hgb 10.7 L Hct 32.4 L MCV 89.3 MCH 29.4 MCHC 32.9 RDW 17.2 H Plt Count 194 Neut % (Auto) 84.2 H Lymph % (Auto) 6.7 L [place] % (Auto) 8.7 Eos % (Auto) 0.0 L Baso % (Auto) 0.4 Neut # (Auto) 4100 Lymph # (Auto) 300 L [place] # (Auto) 400 Eos # (Auto) 0 Baso # (Auto) 0 Sodium 143 Potassium 4.8 Chloride 108 H Carbon Dioxide 26 BUN 52 H Creatinine 1.81 H Estimated GFR 36 L BUN/Creatinine Ratio 28.7 H Glucose 144 H Calcium 7.4 L PFSH Medical History Amyloidosis COPD with exacerbation CVA (cerebral vascular accident) Diastolic dysfunction Grand mal seizure History of pacemaker Hx of ulcer disease ILD (interstitial lung disease) Iron deficiency anemia Ischemic cardiomyopathy Lymphoma Myocardial infarction (2004) Pulmonary mass Secondary pulmonary arterial hypertension Silicosis Surgical History AICD (automatic cardioverter/defibrillator) present History of mitral valve repair (2006) Hx of cholecystectomy Hx of heart bypass surgery S/P CABG x 4 (2006) Social History marital status: unknown household members: spouse, children and none occupational status: previously employed Smoking Status: Former smoker Tobacco: How many years used: 35 alcohol intake: current substance use type: does not use Assessment & Plan Assessment & Plan narrative: Acute hypoxic respiratory failure secondary to lung mets, COVID infection, etc worse, -remains on high flow O2 - continue abx - continue high flow O2 JERRELL CKD stage 3 cr / bun stable - avoid nephrotoxics - continue diuresis - BMP daily ?CAD ( s/p CABG, s/p AICD) -continue telemetry monitoring ? Hyperkalemia -improved Hyperlipidemia -continue statin H/O B-cell? Lymphoma -not on treatment Hypothyroidism -continue synthroid H/O CVA - telemetry monitoring - continue statin ?H/O Seizure disorder -continue dilantin CODE status:DNR dicussed with son Siva, family wanted to change his care to comfort measures Time Spent With Patient Critical Care time: I spent a total of [] minutes of critical care time on this patient's care today; this time is exclusive of procedural time.
[2022-01-08] MEDS: SCOPOLAMINE 1 PATCH TOP (12:18)
--- NOTE | 2022-01-08 12:53 | PC.NURSE ---
Addendum entered by Kristin Alonso R.N. 01/08/22 17:04: Reviewed medications with Dr. Mccormick and fosphenytoin, Lasix, and antibiotics to continue at this time. Addendum entered by Kristin Alonso R.N. 01/08/22 17:03: Family at bedside, at 1450 heated HFNC removed and 4L NC placed on pt for comfort. SpO2 in the 60s at this time. (Arcelia) and 2 sons are currently in room, pt calmed by presence. Dilaudid IV and morphine SL being administered prn. Addendum entered by Kristin Alonso R.N. 01/08/22 13:04: Remains on heated HFNC pending family arrival. Original Note: Day Shift Note Pt on heated HFNC 50L and 95% FiO2 with SpO2 in the 92-94% range when at rest and not agitated. Pt with bilateral tremors when agitated and clenching upper extremities to chest, pulling at lines. Unable to console, does not follow directions, unable to answer questions, opens eyes to voice but does not track. Music turned on in room and Dilaudid administered for RR up to the 30s, pt calmed shortly after. Update given to Siva (son) who requested to speak with MD. Number given to MD and after discussion with family, orders were received to place pt on comfort care (See orders). Spoke with Siva again about visitation and instructed on isolation protocol/risk of COVID infection/exposure and that no more than 2 visitors could be in room at one time - acknowledged understanding.
[2022-01-08] MEDS: MORPHINE 10 MG/0.5 ML ORAL SYRINGE SL ×3 (16:36→22:02)
[2022-01-08] MEDS: POLYVINYL ALCOHOL DROPS 1 DROPS EYE-BOTH (18:46)
[2022-01-09] MEDS: MORPHINE 10 MG/0.5 ML ORAL SYRINGE SL ×8 (00:56→21:40)
[2022-01-09 01:00] VITALS: BP 102/50; PULSE 94; RESP 20; TEMP 37.2; O2SAT 76
[2022-01-09] MEDS: FUROSEMIDE 100 MG/10 ML VIAL 80 MG IV ×2 (07:35→21:40)
[2022-01-09] MEDS: cefTRIAXone 1,000 MG in SODIUM CHLORIDE 0.9% 100 ML 200 MG IV (07:35)
[2022-01-09] MEDS: HYDROMORPHONE 0.5 MG INJ IV (07:36)
[2022-01-09] MEDS: SODIUM CHLORIDE 0.9% FLUSH 10 ML IV ×2 (07:36→21:39)
[2022-01-09] MEDS: DEXAMETHASONE 10 MG/ML VIAL 6 MG IV (07:36)
[2022-01-09] MEDS: SODIUM CHLORIDE 0.9% IV ×2 (09:20→21:39)
[2022-01-09] MEDS: FOSPHENYTOIN IV ×2 (09:20→21:39)
--- NOTE | 2022-01-09 22:32 | PC.NURSE ---
Family decided to take pt. off of 02 and in less than 30 min. pt. . Coordinator Dena Gaston notified as well as KEN Barreto informed of the time of pt passing at 2225.
--- NOTE | 2022-01-09 22:39 | PM.DDS.1 ---
Discharge Summary History of Illness Chief Complaint: Shortness of Breath/Dyspnea Narrative: From [facility] P by Dr. Abdon Judge MD dated 01/05/22 Mr. 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 He was unable to be treated with Paxlovid due to his Dilantin dosing at home.?He has cough, shortness of breath, weakness, and lack of appetite. His cough is not productive. He does not have chest pain, abdominal pain, and no fevers/chills. He states he has a sore throat and because of this has stopped taking all his medications for the last two days. He usually uses oxygen overnight only. He has known lymphoma with PET/CT last year concerning for mets in the lungs, and he is not on treatment for this. He has noted worsening swelling in his lower legs over the last few days. In the ED workup was done, vitals notable for normal temp, rr 24, sats of 89% on 3L. Labs notable for WBC 2.9, hgb 10.6. Na 133, K 5.7, co2 12, BUN 49, creatinine 2.63. Chest xray shows patchy bilateral pulmonary infiltrates. COVID was positive. He was ordered for dexamethasone, azithromycin and lasix and admitted for further treatment. Hospital Course Date of Admission: 01/05/22 20:56 Date of : 01/09/22 Primary care provider: Mario Arizmendi MD Consults: 01/06/22 12:15 Consult to Inpatient Wound Care Nurse Routine Comment: Reason for consultation: At risk, sacrum Has provider been notified: Yes 01/06/22 17:15 Consult to Dietitian, Adult Routine Comment: Reason For Exam: Assessed as high risk 01/08/22 11:37 Consult to Discharge Planning Routine Comment: Consult to Hospice Referral Urgent Comment: Discharge provider: KEN Abarca Discharge Diagnosis: 1. Acute on chronic respiratory failure 2. Acute on chronic kidney disease 3. Acute hyperkalemia 4. CAD, sp CABG, severe mitral regurgitation, s/p AICD and pulmonary hypertension 5. Large B-cell Lymphoma, not under current treatment 6. COVID-19 pneumonia Hospital Course: Maksim Eason is an 86-year-old male patient with diffuse large B-cell lymphoma, COPD, HFrEF, JERRELL on chronic CKD, hyperkalemia, CAD, hypothyroidism, history of a CVA, and a seizure disorder was admitted for treatment and management of Acute on chronic respiratory failure in the setting of symptomatic COVID-19 pneumonia, COPD, and HFrEF. He was treated with dexamethasone, nebulizers and azithromycin. Remdesivir was not administered due to the patient's JERRELL. Two days after admission he was noted to have worsening hypoxemia and started on heated high flow and then attempted BiPAP which the patient did not tolerate. Decision was made in consultation with the family that he be made DNR/DNI however the family wanted to have continued medical management. On January 09 after further consultation with family the patient was made comfort care only. Family was visiting the patient and indicated to patient's nurse that they wanted him to be taken off oxygen and patient at 10:26 p.m.. For notation in the certificate: Patient was a former smoker. Objective Labs Result Diagrams: 01/08/22 04:45 01/08/22 04:45
[2022-01-19 08:43] LABS: Oxygen Saturation ABG 75 % (95-100)
== END 2022-01-09 23:32 | disposition expired | DRG 177 ==
LOC: ED 20:17 → AC 20:56 → ICU 01-06 09:43 → AC 01-06 09:54 → ICU 01-06 10:07
PROVIDERS: Internal Medicine; Admitting Provider Internal Medicine; Emergency Provider Nurse Practitioner Critical Care Medicine; PCP Family Medicine; Referring Provider Nurse Practitioner Critical Care Medicine; Visit Provider Internal Medicine
DX: U07.1 COVID-19 (principal); J12.82 Pneumonia due to coronavirus disease 2019; J96.21 Acute and chronic respiratory failure with hypoxia; N17.9 Acute kidney failure, unspecified; C83.30 Diffuse large B-cell lymphoma, unspecified site; E87.2 Acidosis; E87.5 Hyperkalemia; J62.8 Pneumoconiosis due to other dust containing silica; I25.10 Atherosclerotic heart disease of native coronary artery without angina pectoris; E03.9 Hypothyroidism, unspecified; G40.909 Epilepsy, unspecified, not intractable, without status epilepticus; E78.5 Hyperlipidemia, unspecified; J44.9 Chronic obstructive pulmonary disease, unspecified; N18.30 Chronic kidney disease, stage 3 unspecified; Z86.73 Personal history of transient ischemic attack (TIA), and cerebral infarction without residual deficits; Z87.891 Personal history of nicotine dependence; Z95.1 Presence of aortocoronary bypass graft; Z99.81 Dependence on supplemental oxygen; Z66 Do not resuscitate; Z51.5 Encounter for palliative care; Z95.0 Presence of cardiac pacemaker
CPT/HCPCS: 36415; 36600; 71045; 71046; 76770; 80048; 80053; 81001; 82550; 82553; 82570; 82805; 83735; 83880; 84100; 84300; 84484; 85025; 87635; 87797; 93005; 93010; 94640; 94762; 99283; 99285; C9803; J0696; J1100; J1170; J1200; J1644; J1940; J2270; Q2009